=== PATIENT | female | born 1935 | race Caucasian/White ===

== ENCOUNTER → 2019-02-04 09:21 | Outpatient (CLI) | payer MEDICARE, SELFPAY ==
[2018-11-16 10:48] VITALS: BMI 25.6
--- NOTE | 2019-02-04 09:22 | STEWCON_ITS ---
Reason For Study: CAD/ASHD Stress Results Protocol: MODIFIED JOAQUIM Maximum Predicted HR: 139 bpm Target HR: 118 bpm % Maximum Predicted HR: 109 % DurationHeart Rate Stage (mm:ss) (bpm) BP Comment BASELINE 79 158/40DILUTED DEFINITY 3CC USED MODBRUCE- STAGE 1 3:00 130 144/64 MODBRUCE- STAGE2 3:00 144 146/74SLIGHT SOB, NO CP MODBRUCE- STAGE 3 1:00 151 / SOB, ST DEPRESSION RECOVERY 84 140/80DENIES CP, ST DEPRESSION RESOLVED Stress Duration: 7:00 mm:ss Maximum Stress HR: 151 bpm Baseline Echocardiogram Findings The estimated ejection fraction is 65 %. Stress Echo Wall motion Data Resting WM Intermediate WM Stress WM Resting Wall Motion Wall Motion Stress No regional wall motion Mid-Anterior : Mildly abnormalities noted. hypokinetic. Mid-anteroseptal : Mildly hypokinetic. EKG Data The baseline ECG displays normal sinus rhythm. The stress ECG displays diffuse abnormal ST segments. Interpretation Summary The estimated ejection fraction is 65 %. Mid-Anterior : Mildly hypokinetic Mid-anteroseptal : Mildly hypokinetic Abnormal, adequate, modified Joaquim treadmill echocardiogram. Positive for ischemia by EKG and echocardiographic anterior. No anginal symptoms noted. The patient developed [address] segment depression at 5 minutes 50 seconds into exercise. This continued through exercise to a maximum of [address] segment depression. Her ST segment depression normalized by 1 minute 50 seconds into recovery. In addition the patient developed mid anteroseptal hypokinesis consistent with her previous LAD stent at peak exercise. No arrhythmias noted. Appropriate blood pressure response to exercise. Test terminated due to attainment target heart rate and dyspnea. Final LVEF of 65%. The study was technically difficult. Contrast injection was performed. Ordering Physician: Howard Damian Referring Physician: Howard Damian Performed By: Mela Jacobs, ANDRES, RVT
--- NOTE | 2019-02-04 10:55 | RAD_ITS ---
STUDY: X-RAY CHEST REASON FOR EXAM: Female, 83 years old. Abnormal stress test. History of heart stent placement. TECHNIQUE: Frontal and lateral views of the chest. COMPARISON: December 25, 2016 FINDINGS: Stable mild hyperexpansion. Bilateral apical pleural thickening unchanged. Borderline cardiomegaly unchanged. Normal mediastinum and shantell. Normal visualized pulmonary arteries. Aortic tortuosity with calcification unchanged. Stable thoracic spondylosis. Normal visualized ribs, clavicles, and shoulders. There is no demonstrated abnormality of the visualized soft tissue structures of the upper abdomen. RAD/Chest PA and Lateral IMPRESSION: Stable borderline cardiomegaly with hyperexpansion. No acute finding. Electronically Signed: Barry Sena MD at 16:49 EDT , Service support ,
[2019-02-04 12:50] LABS: Hematocrit 37.3 % (37-47); Mean Corp Hgb Conc 34.9 g/dL (32-36); Mean Corpuscular Hgb 34.5 pg (27.0-32.0); Mean Corpuscular Volume 98.9 fL (81-99); Mean Platelet Vol. 10.1 fl (6.2-12.0); Platelet Count 247 K/mm3 (150-450); RBC Distribution Width CV 11.6 % (11.6-14.6); RBC Distribution Width SD 42.2 fl (35.1-43.9); Red Blood Count 3.77 M/mm3 (4.2-5.4); White Blood Count 6.7 K/mm3 (4.4-11.0)
[2019-02-04 13:07] LABS: International Normalized Ratio 1.1; Prothrombin Time (Protime)PT. 13.5 SECONDS (11.7-14.9)
[2019-02-04 13:13] LABS: Anion Gap 7 (5-15); BUN 17 mg/dL (7-18); BUN/Creat Ratio 21.5 RATIO (10-20); Chloride 101 mmol/L (98-107); Creatinine, Serum 0.79 mg/dL (0.55-1.02); EST Glomerular Filtration Rate 74 mL/min (>60); Est Glom Filt Rate - Afr Amer 90 mL/min (>60); Glucose 90 mg/dL (74-106); Potassium 3.6 mmol/L (3.5-5.1); Sodium Level 137 mmol/L (136-145)
== END ==
PROVIDERS: Family Provider Family Medicine; PCP Family Medicine; Referring Provider Internal Medicine Cardiovascular Disease; Visit Provider Internal Medicine Cardiovascular Disease
DX: Z01.818 Encounter for other preprocedural examination (principal); I25.10 Atherosclerotic heart disease of native coronary artery without angina pectoris; R94.39 Abnormal result of other cardiovascular function study
CPT/HCPCS: 36415; 71046; 80048; 85027; 85610; 93017; 93350; Q9957; A4216; C8928

== ENCOUNTER 2019-02-10 06:52 | Day surgery (SDC) | payer MEDICARE, SELFPAY ==
[2018-11-16 10:48] VITALS: BMI 25.6
--- NOTE | 2019-02-09 15:39 | PCM.HP.BLA ---
History and Physical Date of Admission: 02/10/19 HPI HPI History of Present Illness Surgical H&P: No Details: This is an 83-year-old female that presents here today for a heart catheterization. She has a history of coronary artery disease with stenting to her LAD in 2010. She also has a history of hypertension, hyperlipidemia hypertriglyceridemia. Patient was asked to begin a exercise program. Because of this, she underwent a stress echocardiogram to further evaluate coronary artery disease. Her stress echocardiogram on 02/04/2019 was considered to be an abnormal, adequate, modified Joaquim treadmill echocardiogram that was positive for ischemia by EKG and echocardiographic criteria. Because of the abnormal stress test, she will proceed with a heart catheterization to further evaluate. She denies chest, arm, jaw, or neck discomfort. Her exercise tolerance is stable. She denies symptoms of CHF, palpitations, lightheadedness, dizziness, near syncope, or syncopal episodes. She denies edema or claudication issues. She denies orthopnea, PND, fever, chills, blood in urine, blood in stool, myalgia, or unexplainable fatigue. 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 Valuation Required: No Accompanied by: Is patient in pain?: No Allergies erythromycin base Allergy (Verified 11/16/18 10:51) Unknown Medications Aspirin [Adult Low Dose Aspirin EC] 81 mg PO DAILY 12/25/16 [History Confirmed 11/16/18] Atorvastatin Calcium [Lipitor] 80 mg PO QHS 12/25/16 [History Confirmed 11/16/18] Calcium Carbonate/Vitamin D3 [Calcium 600-Vit D3 200 Tablet] 1 ea PO DAILY 12/25/16 [History Confirmed 11/16/18] Folic Acid 0.8 mg PO DAILY@0800 12/25/16 [History Confirmed 11/16/18] Multivitamins,Therapeutic [Multivitamin] 1 tab PO DAILY 12/25/16 [History Confirmed 11/16/18] Nitroglycerin (INPATIENT USE) [Nitrostat] 0.4 mg SUBLINGUAL Q5M PRN 12/25/16 [History Confirmed 11/16/18] hydrochlorothiazide 12.5 mg capsule 12.5 mg PO DAILY #90 cap 10/22/18 [Rx Confirmed 11/16/18] metoprolol tartrate 50 mg tablet 50 mg PO BID #180 tab 10/22/18 [Rx Confirmed 11/16/18] omega-3 fatty acids-fish oil 300 mg-1,000 mg capsule 1 cap PO BID cap 10/22/18 [History Confirmed 11/16/18] ranitidine 150 mg tablet 150 mg PO DAILY PRN 10/22/18 [History Confirmed 11/16/18] losartan 100 mg tablet 100 mg PO DAILY 11/16/18 [History Confirmed 11/16/18] Clopidogrel (Plavix) 75 mg p.o. daily PFSH Medical History Atherosclerosis of [place] coronary artery of [place] heart without angina pectoris (Chronic) Hyperlipemia, mixed (Chronic) Essential (primary) hypertension (Chronic) Anxiety (Chronic) Surgical History History of coronary artery stent placement (Chronic 06/06/11) History of left heart catheterization (Acute 12/26/16) H/O tubal ligation (Chronic) Family History Father CAD (coronary artery disease) Brother Hypertension Mother Hypertension Sister Hypertension Social History Smoking Status: Never smoker alcohol intake: current alcohol intake frequency: holidays/special occasions only substance use type: does not use caffeine: Yes Type: coffee Number of servings: 1 what type of physical activity do you participate in: walking frequency: daily duration: 45-60 minutes/day seatbelt use: always do you feel safe at home: Yes ROS Const Const: Positive for other (Feels well); Negative for fatigue, weakness, body ache, fever(s), headache(s), chills, frequent falls, night sweats, daytime sleepiness, difficulty sleeping, excessive sweating, weight gain, weight loss, increased appetite, poor appetite or anorexia Eyes Eyes: Negative for blind spots, loss of peripheral vision, transient loss of vision, blurry vision, change in vision, double vision, floaters, tunnel vision or other ENT ENT: Negative for headache(s) or balance problems Cardio Chest Pain: No Palpitations: No Edema: None Muscle aches with walking: None Resp Respiratory: Negative for SOB with activity, SOB at rest, SOB orthopnea\SOB lying down, Cough, Coughing up blood/hemoptysis, chest congestion, pain on inspiration, snoring, stridor, wheezing, crackles, paroxysmal nocturnal dyspnea or other GI GI: Negative nausea, vomiting, heartburn, constipation, belching, bloating, cramping, vomiting blood/hematemesis, bright, red blood in stools, black,tarry stools, loose stools, Difficulty Swallowing or other : Negative for hematuria, frequent nighttime urination/ nocturia, erectile dysfunction or abnormal vaginal bleeding Musc Musc: Negative for muscle aches/ myalgia, muscle weakness, joint pain or balance problems Skin Skin: Negative redness, non-healing lesions, rash, unusual bruising, skin ulcer, wounds, jaundice or other Neuro Neuro: Negative for frequent falls, headache(s), weakness, blurry vision or double vision Braulio Hematologic/Lymphatic: Negative for easy bleeding, easy bruising, enlarged lymph nodes or other Endo Endo: Negative for fatigue or excessive sweating Psych Psych: Negative for anxiety, depression, thoughts of harming anyone, thoughts of harming yourself, visual hallucinations, panic attacks or audible hallucinations Allergy Allergy/Immunology: Negative for rash Cardiology Exam Const Appearance: cooperative, healthy appearing and no acute distress Nutritional Appearance: well nourished Orientation: alert, oriented x3 and oriented to person Head Head: normal to inspection, normocephalic and atraumatic Nose: external nose normal Face and Sinus: face symmetric Mouth: oral mucosae normal Eyes General: appearance normal, both eyes and all related structures Eyelids: eyelids normal Conjunctivae: conjunctivae normal Pupils: PERRL and normal by confrontation EOM: EOM intact bilaterally Neck Neck: normal visual inspection and full ROM Carotids: normal carotid upstroke Chest Chest inspection: normal inspection of the chest Auscultation: Bilateral: Clear to Auscultation Cardio Palpation: normal PMI Rate: regular rate Rhythm: regular rhythm Heart sounds: S1 normal and S2 normal GI GI: normal to inspection, no hepatosplenomegaly and bowel sounds present Neuro General: alert, awake, oriented x3, CN's II-XI intact bilaterally and moves all extremities Skin Skin: no rashes or lesions noted Extremities Pulses: Normal: Right Femoral Pulse, Left Femoral Pulse, Right Dorsalis Pedis Pulse, Left Dorsalis Pedis Pulse, Right Posterior Tibial Pulse, Left Posterior Tibial Pulse, Right Radial Pulse, Left Radial Pulse Lower Extremity Edema: None: Bilateral Psych Psychological: normal affect Assessment & Plan 1. Atherosclerosis of [place] coronary artery of [place] heart without angina pectoris I25.10 Plan Her stress echocardiogram on 02/04/2019 was considered to be abnormal. Given her previous history of stenting to her LAD in 2010 she will proceed with heart catheterization for further evaluation. Based on results further recommendation will be made. If she requires a repeat stenting she will continue with Plavix for at least one year. In the interim, she will continue with aspirin, atorvastatin, losartan, and metoprolol. Patient results of her heart catheterization further recommendation be made. 2. Essential hypertension I10 Plan Patient's blood pressure is well-controlled. We will continue to monitor. We will not make any medication regimen changes. 3. Hyperlipemia, mixed E78.2 Plan This is being managed by her primary care physician. She will continue with current high-dose statin medication. Plan Detail Additional Comments Thank you for allowing us to participate in patient's plan of care, if you have any questions please do not hesitate to call. This note was generated using a voice recognition system and there may be incorrect words, spelling or punctuation errors that were not noted when reviewing the office note prior to saving. Supplemental Info Supplemental Information Stress echocardiogram from 02/04/2019: Interpretation Summary The estimated ejection fraction is 65 %. Mid-Anterior : Mildly hypokinetic Mid-anteroseptal : Mildly hypokinetic Abnormal, adequate, modified Joaquim treadmill echocardiogram. Positive for ischemia by EKG and echocardiographic anterior. No anginal symptoms noted. The patient developed [address] segment depression at 5 minutes 50 seconds into exercise. This continued through exercise to a maximum of [address] segment depression. Her ST segment depression normalized by 1 minute 50 seconds into recovery. In addition the patient developed mid anteroseptal hypokinesis consistent with her previous LAD stent at peak exercise. No arrhythmias noted. Appropriate blood pressure response to exercise. Test terminated due to attainment target heart rate and dyspnea. Final LVEF of 65%. The study was technically difficult. Contrast injection was performed. Heart catheterization from 12/26/2016: Dominance: Right dominant Left heart assessment Left ventricular ejection fraction: By LV gram 65% Normal LV wall motion Normal left ventricular systolic function Normal left ventricular end-diastolic pressure Left anterior descending artery: Proximal LAD: In-stent restenosis 0% Circumflex artery: Nonobstructive Right coronary artery: No significant disease noted
[2019-02-10 07:10] VITALS: BMI 25.0
--- NOTE | 2019-02-10 08:25 | CL.D_ITS ---
Patient Name: DELMY CAMACHO Study Date: 02/10/2019 Performing: Howard Damian MD Ht: 61.81 inches 157 cm : 1935 Wt: 137 lbs 62.14 kg Age: 83 Gender: female BSA: 1.62 PROCEDURE(S) PERFORMED [id number]/COR/LV CLINICAL PROFILE AND INDICATIONS Indications: Stable Known CAD Heart Failure: None Stress/Imaging Date: 02/04/2019Stress Echocardiogram: Positive Low Risk Angina Classification Anginal Classification w/in 2 Weeks: No symptoms CAD Presentations: No Sxs, no angina. Comorbidities/Risk Factors: Hypertension Dyslipidemia Prior PCI CONCLUSIONS Normal LV size, wall motion,and systolic function Non obstructive coronary arteries Widely patent LAD stent with no evidence of compromise of ostial LCX. RECOMMENDATIONS Management as per referring [facility] Intern Manual sheath removal. DESCRIPTION OF PROCEDURE The patient arrived to the procedure lab. The risks and benefits of the procedure as well as a full d escription of our services here and current unavailability of surgical backup were fully explained to the patient and/or their significant other prior to the catheterization. The Timeout was completed, verifying the correct patient and procedure. The patient's procedural site was prepped and draped in the usual fashion. Local anesthetic was given subcutaneously to right groin region with Lidocaine 2%. Using a modified Seldinger technique, arterial access was obtained via the right femoral artery, a 4 Fr sheath was inserted Left Coronary Artery selective angiography was performed in multiple views us ing a 4 Fr. JL5 catheter. Right Coronary Artery selective angiography was then performed in multiple views using a 4 Fr. 3DRC catheter. Left Ventriculography was performed in WORKMAN projection using a 4 Fr . Pigtail catheter. LV to AO pullback pressures were then recorded.The arterial sheath was pulled and manual compression applied until hemostasis is achieved. CORONARY ANGIOGRAPHY DOMINANCE: Right Dominant LEFT HEART ASSESSMENT Left Ventricular Ejection Fraction: by LV Gram 65 % Normal LV wall motion Normal Left Ventricular systolic function LVEDP: 15 mmHg LEFT MAIN: Mild luminal irregularities less than 30% LEFT ANTERIOR DESCENDING ARTERY: OSTIAL LAD: Previously placed stent is patent CIRCUMFLEX ARTERY: Non-obstructive RIGHT CORONARY ARTERY: Angiographically normal COMPLICATIONS No Complications PROCEDURE MEDICATIONS Oxygen: 2 L/min via nasal cannula Nitro 300 mcg IC 02/10/2019 08:14:54 SUMMARY OF HEMODYNAMIC DATA Time AIR REST ECG 07:21:45 AO 174/68 (109) SA 08:05:48 LV 174/-20, 15 08:13:44 LV 175/-20, 17 08:13:51 LVp 173/-17, 14 08:13:57 AOp 174/65 (112) 08:14:02 AO 134/44 (78) 08:14:43 Signed By Howard Damian MD On 02/10/2019 08:25:01 Howard Damian MD
--- NOTE | 2019-02-16 08:57 | HP.PCM_ITS ---
Problem List (1) Atherosclerosis of [place] coronary artery of [place] heart without angina pectoris Status: Chronic (2) Essential (primary) hypertension Status: Chronic (3) History of coronary artery stent placement Status: Chronic Comment: IMO-BBP-Zast LAD w/ 3.5 x 20 mm Promus EElement Stent (4) History of left heart catheterization Status: Chronic Comment: 02/10/2019:Normal LV size, wall motion,and systolic function; Non obstructive coronary arteries Widely patent LAD stent with no evidence of compromise of ostial LCX. Per [facility] @ [facility]. 12/26/2016:NormalLV size, wall motion, and sytolic function. Nonobstructive coronary arteries. Widely patent stent in distal LM and proximal LAD. False positive stress test most likely due to HTN BP response to exercise per [facility] @ [facility] (5) Hyperlipemia, mixed Status: Chronic History and Physical Date of Admission: 02/10/19 History and Physical (Generic) Patient Name: DELMY CAMACHO Date of : 1935 Patient Status: Surgical Day Care Attending Provider: Howard Damian Date: 02/09/19 15:39 Initialization Date: 02/09/19 15:39 Addendum entered and electronically signed by Howard Damian MD 02/16/19 08:54: Code Visit Patient seen and examined and agree with above history and physical. No changes from previous evaluation. Patient will proceed with left heart catheterization and possible intervention. Original Note: History and Physical Date of Admission: 02/10/19 HPI HPI History of Present Illness Surgical H&P: No Details: This is an 83-year-old female that presents here today for a heart catheterization. She has a history of coronary artery disease with stenting to her LAD in 2010. She also has a history of hypertension, hyperlipidemia hypertriglyceridemia. Patient was asked to begin a exercise program. Because of this, she underwent a stress echocardiogram to further evaluate coronary artery disease. Her stress echocardiogram on 02/04/2019 was considered to be an abnormal, adequate, modified Joaquim treadmill echocardiogram that was positive for ischemia by EKG and echocardiographic criteria. Because of the abnormal stress test, she will proceed with a heart catheterization to further evaluate. She denies chest, arm, jaw, or neck discomfort. Her exercise tolerance is stable. She denies symptoms of CHF, palpitations, lightheadedness, dizziness, near syncope, or syncopal episodes. She denies edema or claudication issues. She denies orthopnea, PND, fever, chills, blood in urine, blood in stool, myalgia, or unexplainable fatigue. 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 Accompanied by: Is patient in pain?: No Allergies erythromycin base Allergy (Verified 11/16/18 10:51) Unknown Medications Aspirin [Adult Low Dose Aspirin EC] 81 mg PO DAILY 12/25/16 [History Confirmed 11/16/18] Atorvastatin Calcium [Lipitor] 80 mg PO QHS 12/25/16 [History Confirmed 11/16/18] Calcium Carbonate/Vitamin D3 [Calcium 600-Vit D3 200 Tablet] 1 ea PO DAILY 12/25/16 [History Confirmed 11/16/18] Folic Acid 0.8 mg PO DAILY@0800 12/25/16 [History Confirmed 11/16/18] Multivitamins,Therapeutic [Multivitamin] 1 tab PO DAILY 12/25/16 [History Confirmed 11/16/18] Nitroglycerin (INPATIENT USE) [Nitrostat] 0.4 mg SUBLINGUAL Q5M PRN 12/25/16 [History Confirmed 11/16/18] hydrochlorothiazide 12.5 mg capsule 12.5 mg PO DAILY #90 cap 10/22/18 [Rx Confirmed 11/16/18] metoprolol tartrate 50 mg tablet 50 mg PO BID #180 tab 10/22/18 [Rx Confirmed 11/16/18] omega-3 fatty acids-fish oil 300 mg-1,000 mg capsule 1 cap PO BID cap 10/22/18 [History Confirmed 11/16/18] ranitidine 150 mg tablet 150 mg PO DAILY PRN 10/22/18 [History Confirmed 10/29 ] losartan 100 mg tablet 100 mg PO DAILY 11/16/18 [History Confirmed 11/16/18] Clopidogrel (Plavix) 75 mg p.o. daily PFSH Medical History Atherosclerosis of [place] coronary artery of [place] heart without angina pectoris (Chronic) Hyperlipemia, mixed (Chronic) Essential (primary) hypertension (Chronic) Anxiety (Chronic) Surgical History History of coronary artery stent placement (Chronic 06/06/11) History of left heart catheterization (Acute 12/26/16) H/O tubal ligation (Chronic) Family History Father CAD (coronary artery disease) Brother Hypertension Mother Hypertension Sister Hypertension Social History Smoking Status: Never smoker alcohol intake: current alcohol intake frequency: holidays/special occasions only substance use type: does not use caffeine: Yes Type: coffee Number of servings: 1 what type of physical activity do you participate in: walking frequency: daily duration: 45-60 minutes/day seatbelt use: always do you feel safe at home: Yes ROS Const Const: Positive for other (Feels well); Negative for fatigue, weakness, body ache, fever(s), headache(s), chills, frequent falls, night sweats, daytime sleepiness, difficulty sleeping, excessive sweating, weight gain, weight loss, increased appetite, poor appetite or anorexia Eyes Eyes: Negative for blind spots, loss of peripheral vision, transient loss of vision, blurry vision, change in vision, double vision, floaters, tunnel vision or other ENT ENT: Negative for headache(s) or balance problems Cardio Chest Pain: No Palpitations: No Edema: None Muscle aches with walking: None Resp Respiratory: Negative for SOB with activity, SOB at rest, SOB orthopnea\SOB lying down, Cough, Coughing up blood/hemoptysis, chest congestion, pain on inspiration, snoring, stridor, wheezing, crackles, paroxysmal nocturnal dyspnea or other GI GI: Negative nausea, vomiting, heartburn, constipation, belching, bloating, cramping, vomiting blood/hematemesis, bright, red blood in stools, black,tarry stools, loose stools, Difficulty Swallowing or other : Negative for hematuria, frequent nighttime urination/ nocturia, erectile dysfunction or abnormal vaginal bleeding Musc Musc: Negative for muscle aches/ myalgia, muscle weakness, joint pain or balance problems Skin Skin: Negative redness, non-healing lesions, rash, unusual bruising, skin ulcer, wounds, jaundice or other Neuro Neuro: Negative for frequent falls, headache(s), weakness, blurry vision or double vision Braulio Hematologic/Lymphatic: Negative for easy bleeding, easy bruising, enlarged lymph nodes or other Endo Endo: Negative for fatigue or excessive sweating Psych Psych: Negative for anxiety, depression, thoughts of harming anyone, thoughts of harming yourself, visual hallucinations, panic attacks or audible hallucinations Allergy Allergy/Immunology: Negative for rash Cardiology Exam Const Appearance: cooperative, healthy appearing and no acute distress Nutritional Appearance: well nourished Orientation: alert, oriented x3 and oriented to person Head Head: normal to inspection, normocephalic and atraumatic Nose: external nose normal Face and Sinus: face symmetric Mouth: oral mucosae normal Eyes General: appearance normal, both eyes and all related structures Eyelids: eyelids normal Conjunctivae: conjunctivae normal Pupils: PERRL and normal by confrontation EOM: EOM intact bilaterally Neck Neck: normal visual inspection and full ROM Carotids: normal carotid upstroke Chest Chest inspection: normal inspection of the chest Auscultation: Bilateral: Clear to Auscultation Cardio Palpation: normal PMI Rate: regular rate Rhythm: regular rhythm Heart sounds: S1 normal and S2 normal GI GI: normal to inspection, no hepatosplenomegaly and bowel sounds present Neuro General: alert, awake, oriented x3, CN's II-XI intact bilaterally and moves all extremities Skin Skin: no rashes or lesions noted Extremities Pulses: Normal: Right Femoral Pulse, Left Femoral Pulse, Right Dorsalis Pedis Pulse, Left Dorsalis Pedis Pulse, Right Posterior Tibial Pulse, Left Posterior Tibial Pulse, Right Radial Pulse, Left Radial Pulse Lower Extremity Edema: None: Bilateral Psych Psychological: normal affect Assessment & Plan 1. Atherosclerosis of [place] coronary artery of [place] heart without angina pectoris I25.10 Plan Her stress echocardiogram on 02/04/2019 was considered to be abnormal. Given her previous history of stenting to her LAD in 2010 she will proceed with heart catheterization for further evaluation. Based on results further recommendation will be made. If she requires a repeat stenting she will continue with Plavix for at least one year. In the interim, she will continue with aspirin, atorvastatin, losartan, and metoprolol. Patient results of her heart catheterization further recommendation be made. 2. Essential hypertension I10 Plan Patient's blood pressure is well-controlled. We will continue to monitor. We will not make any medication regimen changes. 3. Hyperlipemia, mixed E78.2 Plan This is being managed by her primary care physician. She will continue with current high-dose statin medication. Plan Detail Additional Comments Thank you for allowing us to participate in patient's plan of care, if you have any questions please do not hesitate to call. This note was generated using a voice recognition system and there may be incorrect words, spelling or punctuation errors that were not noted when reviewing the office note prior to saving. Supplemental Info Supplemental Information Stress echocardiogram from 02/04/2019: Interpretation Summary The estimated ejection fraction is 65 %. Mid-Anterior : Mildly hypokinetic Mid-anteroseptal : Mildly hypokinetic Abnormal, adequate, modified Joaquim treadmill echocardiogram. Positive for ischemia by EKG and echocardiographic anterior. No anginal symptoms noted. The patient developed [address] segment depression at 5 minutes 50 seconds into exercise. This continued through exercise to a maximum of [address] segment depression. Her ST segment depression normalized by 1 minute 50 seconds into recovery. In addition the patient developed mid anteroseptal hypokinesis consistent with her previous LAD stent at peak exercise. No arrhythmias noted. Appropriate blood pressure response to exercise. Test terminated due to attainment target heart rate and dyspnea. Final LVEF of 65%. The study was technically difficult. Contrast injection was performed. Heart catheterization from 12/26/2016: Dominance: Right dominant Left heart assessment Left ventricular ejection fraction: By LV gram 65% Normal LV wall motion Normal left ventricular systolic function Normal left ventricular end-diastolic pressure Left anterior descending artery: Proximal LAD: In-stent restenosis 0% Circumflex artery: Nonobstructive Right coronary artery: No significant disease noted History and physical exam reviewed with unroofed, and agree with above. No interim changes noted from previous history and physical. Patient will proceed with left her catheterization and plus/minus intervention if indicated.
== END 2019-02-10 12:50 | disposition home or self-care (01) ==
LOC: CLSP 06:52
PROVIDERS: Family Provider Family Medicine; PCP Family Medicine; Referring Provider Internal Medicine Cardiovascular Disease; Visit Provider Internal Medicine Cardiovascular Disease
DX: I25.10 Atherosclerotic heart disease of native coronary artery without angina pectoris (principal); E78.2 Mixed hyperlipidemia; I10 Essential (primary) hypertension; Z95.5 Presence of coronary angioplasty implant and graft; Z79.82 Long term (current) use of aspirin; Z79.899 Other long term (current) drug therapy; Z79.02 Long term (current) use of antithrombotics/antiplatelets
CPT/HCPCS: 93458; J7040; Q9967; C1769; C1894

== ENCOUNTER → 2019-12-27 08:02 | Outpatient (CLI) | payer MEDICARE, SELFPAY ==
[2019-07-05 10:23] VITALS: BMI 25.6
[2019-12-27 10:17] LABS: AST(SGOT) 23 U/L (15-37); Alanine Aminotransfer ALT/SGPT 28 U/L (13-56); Albumin, Serum 3.6 g/dL (3.2-5.0); Alkaline Phosphatase 87 U/L (45-117); Bilirubin, Direct 0.16 mg/dL (0.00-0.30); Cholesterol 115 mg/dL (200); Globulin 3.7 g/dL (2.2-4.2); High Density Lipoprotein 39 mg/dL; Protein, Total 7.3 g/dL (6.4-8.2); Triglycerides 203 mg/dL; Very Low Density Lipoprotein 41 mg/dL (5-40)
== END ==
PROVIDERS: PCP Family Medicine; Referring Provider Internal Medicine Cardiovascular Disease; Visit Provider Internal Medicine Cardiovascular Disease
DX: E78.2 Mixed hyperlipidemia (principal); I25.10 Atherosclerotic heart disease of native coronary artery without angina pectoris
CPT/HCPCS: 36415; 80061; 80076

== ENCOUNTER 2020-05-26 20:19 | Inpatient (IN) | payer MEDICARE, SELFPAY ==
[2020-01-03 10:57] VITALS: BMI 25.6
[2020-05-26] VITALS (15 sets, daily range): BP systolic 46–192; BP diastolic 34–103; PULSE 55–115; RESP 14–73; TEMP 36.4–36.5; O2SAT 23–100; BMI 27.7
--- NOTE | 2020-05-26 20:19 | RAD_ITS ---
STUDY: X-RAY CHEST REASON FOR EXAM: Female, 84 years old. Chest pain TECHNIQUE: Frontal view of the chest COMPARISON: 02/04/19 FINDINGS: There are mild congestive changes noted. The lungs are otherwise clear. There are no pleural effusions. There is no pneumothorax. The heart is normal in size. The visualized osseous structures are within normal limits. RAD/Chest 1 View (Portable) IMPRESSION: Mild pulmonary vascular congestion. Electronically Signed: Romeo Barclay, at 21:23 EST Tel , Service support ,
--- NOTE | 2020-05-26 20:24 | EKG12_ITS ---
Test Reason : CP Blood Pressure : / mmHG Vent. Rate : 079 BPM Atrial Rate : 079 BPM P-R Int : 224 ms QRS Dur : 088 ms QT Int : 374 ms P-R-T Axes : 072 052 076 degrees QTc Int : 428 ms Sinus rhythm with 1st degree A-V block Septal infarct , age undetermined ST & T wave abnormality, consider anterolateral ischemia Abnormal ECG Confirmed by ARCHIE WADE, CHINYERE ([id number]), society editor MELIA SANTIAGO ([id number]) on 05/30/2020 9:09:58 AM Referred By: Lamonte Valentin Confirmed By:CHINYERE ALMANZA MD
[2020-05-26] MEDS: Aspirin 81 MG TAB.CHEW 324 MG PO (20:32)
[2020-05-26 20:35] LABS: Absolute Neutrophil Count 3.6 X10^3/uL (2.0-7.7); Basophil# 0.07 X10^3/uL; Eosinophil# 0.16 X10^3/uL; Eosinophils% 2.3 % (0-5); Hemoglobin 12.8 g/dL (12.0-15.0); Mean Corp Hgb Conc 32.8 g/dL (32-36); Mean Corpuscular Hgb 33.5 pg (27.0-32.0); Mean Corpuscular Volume 102.1 fL (81-99); Mean Platelet Vol. 9.7 fl (6.2-12.0); Monocyte% 11.6 % (0-10); NRBC Flagged by Analyzer 0 % (0-5); Neutrophil # 3.61 X10^3/uL (2.7-7.7); Neutrophil % 52.7 % (47-70); Platelet Count 280 K/mm3 (150-450); RBC Distribution Width CV 11.7 % (11.6-14.6); RBC Distribution Width SD 43.6 fl (35.1-43.9); Red Blood Count 3.82 M/mm3 (4.2-5.4); White Blood Count 6.9 K/mm3 (4.4-11.0)
--- NOTE | 2020-05-26 20:37 | ED.VISSUMM ---
- ER Visit Summary Date of Service: 05/26/20 Chief Complaint: Chest pain History of Present Illness: The patient is a [address] Brooks and Dr. Jalloh. She reports that she has chest pain that began after lunch today while she was putting up decorations. Is an aching pain is 5-10 in severity and radiates to her left arm. Is worsened by exertion and alleviated by rest. She is short of breath with this. She denies any nausea, vomiting, or diaphoresis. Patient reports that she has had chest pain intermittently for the past month that she thought was GERD. Physical Examination: Vitals: Stable. Afebrile. General: Well-nourished and well-developed. Head: Normocephalic atraumatic. Neck: Supple, no lymphadenopathy. No JVD. Nontender. Cardiovascular: Regular rate and rhythm. No murmurs. Respiratory: No respiratory distress. Clear to auscultation bilaterally. Abdominal: Soft, nontender, nondistended, normal bowel sounds. No guarding, rebound, or peritoneal signs. Back: Nontender. Extremities: Nontender, no edema. Skin: Normal color, no rash. Neurologic: Alert and oriented ?3. Cranial nerves II through XII are intact. Normal strength and sensation. Psych: Normal affect. Test Results: EKG is sinus with a first-degree AV block rate of 79. She has diffuse ST depression in the inferior and precordial leads. She has elevation in aVR. This is a change from 2010. Chest x-ray is rotated with chronic changes. Abnormal Lab Results 05/26/20 05/26/20 20:25 20:25 WBC 6.9 RBC 3.82 L Hgb 12.8 Hct 39.0 MCV 102.1 H MCH 33.5 H MCHC 32.8 RDW Std Deviation 43.6 RDW Coeff of Rochelle 11.7 Plt Count 280 MPV 9.7 Immature Gran % (Auto) 0.400 Neut % (Auto) 52.7 Lymph % (Auto) 32.0 Weber % (Auto) 11.6 H Eos % (Auto) 2.3 Baso % (Auto) 1.0 Absolute Neuts (auto) 3.6 Absolute Lymphs (auto) 2.20 Nucleated RBC % 0 Sodium 137 Potassium 3.5 Chloride 101 Carbon Dioxide 31.0 Anion Gap 5 BUN 20 H Creatinine 0.92 Estim Creat Clear Calc 35.58 Est GFR (MDRD) Af Amer 75 Est GFR (MDRD) Non-Af 62 BUN/Creatinine Ratio 21.6 H Glucose 180 H Calcium 9.6 Troponin I 0.019 Emergency Department Course and Treatment: When the EKG was obtained I am concerned about the elevation in aVR and diffuse ST depression being a STEMI equivalent. She was discussed with Dr. Valentin and the EKGs were faxed to him. Patient was treated with aspirin. Dr. Valentin reviewed the EKGs and does want her treated as a STEMI. However, he does not want heparin or Brilinta. The patient decompensated in the emergency department and her pulse ox dropped into the 70s on a nonrebreather. She was intubated and her pulse ox is now in the high 90s. Prior to the intubation she was given etomidate and subsequent 1 IV. Following this she was given fentanyl, Dilaudid, and vecuronium. Post intubation chest x-ray shows the tube to be in place. Initially it was in the right mainstem and withdrawn 2 cm. It is now above the elham. The x-ray does show pulmonary edema. Patient worsened again while in the emergency department. Her heart rate decreased into the 50s and her systolic blood pressure was in the 60s. However, she still had femoral and carotid pulses with this. I ordered Levophed, but is not immediately available. So the patient had push dose pressors given with half a milligram of epinephrine. Her heart rate is now in the 90s. She was discussed with Dr. Valentin again and will be taken to the [facility] for further evaluation and potential balloon pump. Treatment Plan: Patient be taken to the [facility] for further evaluation and treatment. Disposition: Admitted in serious condition. Impression: 1. Chest pain. 2. Elevation in aVR-STEMI equivalent. 3. Respiratory failure. 4. Intubation by ED physician. 5. Cardiogenic shock. 6. Critical care time 33 minutes. This note was generated with [employer] software. It may contain incorrect words, spelling, and punctuation that were not noted in review of the chart prior to signing ED Disposition - Plan for ED Patient:
--- NOTE | 2020-05-26 20:49 | CM.ED ---
SOCIAL WORK STEMI Alert Responded to STEMI alert. No family present at bedside at this time. This worker spoke with dip brazier, Bella who reports brought patient to ER. This worker and RN attempting to contact . Alphonso Pinedo, CARGO INSPECTOR, TRAVELING STOREKEEPER
[2020-05-26 20:53] LABS: Anion Gap 5 (5-15); BUN 20 mg/dL (7-18); BUN/Creat Ratio 21.6 RATIO (10-20); Calcium,Total 9.6 mg/dL (8.5-10.1); Chloride 101 mmol/L (98-107); Creatinine, Serum 0.92 mg/dL (0.55-1.02); EST Glomerular Filtration Rate 62 mL/min (>60); Est Glom Filt Rate - Afr Amer 75 mL/min (>60); Estimated Creatinine Clearance 35.58 ml/min; Glucose 180 mg/dL (74-106); Potassium 3.5 mmol/L (3.5-5.1); Sodium Level 137 mmol/L (136-145)
--- NOTE | 2020-05-26 20:56 | ED.RN ---
[facility] [phone]
--- NOTE | 2020-05-26 21:10 | CM.ED ---
SOCIAL WORK child psychologist located patient's in ER parking lot. reports has updated daughter, Reva. escorted to patient's room. and patient speaking with Dr. Valentin at this time. Alphonso Pinedo, CARDIOLOGY RN, ENVIRONMENTAL SPECIALIST
--- NOTE | 2020-05-26 21:11 | ED.RN ---
Over head page for labor relations analyst ready. DR. Valentin at pt's bedside, asked us to not leave the ER until he was done assessing.
[2020-05-26] MEDS: LORazepam 2 MG/ML Syringe 0.5 MG IV (21:12)
[2020-05-26] MEDS: Furosemide 40 MG/4 ML Vial IV (21:17)
[2020-05-26] MEDS: Nitroglycerin SL (ED/IMG/CATH) 0.4 MG TABLET SUBLINGUAL (21:20)
[2020-05-26 21:21] LABS: Partial Thromboplast Time 28.9 Seconds (24.1-36.2); Prothrombin Time (Protime)PT. 12.6 SECONDS (11.7-14.9)
--- NOTE | 2020-05-26 21:22 | HP.PCM_ITS ---
Problem List (1) STEMI (ST elevation myocardial infarction) Status: Acute (2) History of left heart catheterization Status: Chronic Comment: 02/10/2019:Normal LV size, wall motion,and systolic function; Non obstructive coronary arteries Widely patent LAD stent with no evidence of compromise of ostial LCX. Per DJN @ [facility]. 12/26/2016:NormalLV size, wall motion, and sytolic function. Nonobstructive coronary arteries. Widely patent stent in distal LM and proximal LAD. False positive stress test most likely due to HTN BP response to exercise per DJN @ [facility] (3) History of coronary artery stent placement Status: Chronic Comment: [id number] LAD w/ 3.5 x 20 mm Promus EElement Stent (4) Atherosclerosis of [place] coronary artery of [place] heart without angina pectoris Status: Chronic (5) Hyperlipemia, mixed Status: Chronic (6) Essential (primary) hypertension Status: Chronic History of Present Illness Date of Admission: 05/26/20 Chief Complaint: chest pain Patient with a history of CAD s/p stent; hypertension and hyperlipidemia who presented to the emergency department with substernal chest pain. She describes her chest pain as aching. Associated her symptoms was shortness of breath and nausea. She denies any diaphoresis. Her chest pain radiated to her left. Her chest pain started few hours before presentation. Although in the past patient has had episodic chest pain. This time around her pain was persistent. Pain worsened with activity and improved with rest. At emergency department EKG showed ST elevation in aVR and diffuse ST depression in other leads. Emergent department doctor discussed the case with a set up mechanic coil winding machines who recommended that patient be taken to the cath suit for PCI. While in the emergency department patient went into extreme respiratory distress and she was immediately intubated. Patient was transferred to the Computer Analyst Supervisor. While at the Computer Analyst Supervisor rapid response was called because patient was hypotensive. Past Medical History Past Medical History (Chronic Problems): Chronic Problems (Last Reviewed 05/26/20 @ 23:[address] Manolo Walden MD) History of left heart catheterization (Chronic 02/10/19) 02/10/2019:Normal LV size, wall motion,and systolic function; Non obstructive coronary arteries Widely patent LAD stent with no evidence of compromise of ostial LCX. Per DJN @ [facility]. 12/26/2016:NormalLV size, wall motion, and sytolic function. Nonobstructive coronary arteries. Widely patent stent in distal LM and proximal LAD. False positive stress test most likely due to HTN BP response to exercise per DJN @ [facility] History of coronary artery stent placement (Chronic 06/06/11) [id number] LAD w/ 3.5 x 20 mm Promus EElement Stent Atherosclerosis of [place] coronary artery of [place] heart without angina pectoris (Chronic) Hyperlipemia, mixed (Chronic) Essential (primary) hypertension (Chronic) Medical History: Medical History (Last Reviewed 05/26/20 @ 23:[address] Manolo Walden MD) Atherosclerosis of [place] coronary artery of [place] heart without angina pectoris (Chronic) I25.10 Hyperlipemia, mixed (Chronic) E78.2 Essential (primary) hypertension (Chronic) I10 Anxiety F41.9 Allergies erythromycin base Allergy (Verified 05/26/20 20:20) sickness feeling Home Medications: Ambulatory Orders Medication Instructions Recorded Aspirin [Adult Low Dose Aspirin EC] 81 mg PO DAILY 12/25/16 Calcium Carbonate/Vitamin D3 1 ea PO DAILY 12/25/16 [Calcium 600-Vit D3 200 Tablet] Folic Acid 0.8 mg PO DAILY@0800 12/25/16 Multivitamins,Therapeutic 1 tab PO DAILY 12/25/16 [Multivitamin] Nitroglycerin (INPATIENT USE) 0.4 mg SUBLINGUAL Q5M PRN 12/25/16 [Nitrostat] omega-3 fatty acids-fish oil 300 1 cap PO BID cap 10/22/18 mg-1,000 mg capsule atorvastatin 80 mg tablet 80 mg PO QHS #90 tab 07/05/19 hydrochlorothiazide 12.5 mg capsule 12.5 mg PO DAILY #90 cap 07/05/19 losartan 100 mg tablet 100 mg PO DAILY #90 tab 01/10/20 metoprolol tartrate 50 mg tablet 50 mg PO BID #180 tab 01/10/20 Surgical History: Surgical History (Last Reviewed 05/26/20 @ 23:[address] Manolo Walden MD) History of left heart catheterization (Chronic) Onset Date: 02/10/19 Z98.890 02/10/2019:Normal LV size, wall motion,and systolic function; Non obstructive coronary arteries Widely patent LAD stent with no evidence of compromise of ostial LCX. Per DJN @ [facility]. 12/26/2016:NormalLV size, wall motion, and sytolic function. Nonobstructive coronary arteries. Widely patent stent in distal LM and proximal LAD. False positive stress test most likely due to HTN BP response to exercise per DJN @ [facility] History of coronary artery stent placement (Chronic) Onset Date: 06/06/11 Z95.5 [id number] LAD w/ 3.5 x 20 mm Promus EElement Stent H/O tubal ligation Z98.51 Smoking Status: Never smoker - *Family History Maternal Family History: Family History (Last Reviewed 05/27/20 @ 02:[address] Manolo Walden MD) Father CAD (coronary artery disease) Brother Hypertension Mother Hypertension Sister Hypertension Review of Systems Constitutional: Denies: Chills, Fever, Weight Change HEENT: Denies: Head Aches, Sinus Congestion, Sinus Drainage Cardiovascular: Reports: Chest Pain. Denies: Palpitations Respiratory: Reports: Shortness of Breath. Denies: Cough, Sputum production Gastrointestinal: Reports: Nausea. Denies: Abdominal Pain, Vomiting Genitourinary: Denies: Dysuria Musculoskeletal: Denies: Joint Pain, Joint Tenderness Skin: Denies: Rash, Wounds Neurological: Denies: Numbness, Tingling, Focal weakness Psychiatric: Denies: Anxiety, Depression, Homicidal Ideations, Suicidal Ideations Hematologic/ Lymphatic: Denies: Easy Bruising, Easy Bleeding VTE Information - Inpt Only VTE Present on Admission: No VTE Mechan Device Prophylaxis: SCD's VTE Pharm Prophylaxis ordered?: No Patient Problems: Active and Suspected Problems (Last Reviewed 05/26/20 @ 23:[address] Manolo Walden MD) STEMI (ST elevation myocardial infarction) (Acute) - Physical Exam Vitals/I&O's: Vital Signs Temp Pulse Resp BP Pulse Ox 97.5 F L 85 23 H 155/103 H 98 05/26/20 20:56 05/26/20 21:07 05/26/20 21:07 05/26/20 21:07 05/26/20 21:07 Oxygen Flow Rate (L/min) 2 Oxygen Delivery Method Nasal Cannula Weight: 66.6 kg Body Mass Index (BMI) 27.7 General: Alert, Oriented x3, Cooperative, - - Initially alert and oriented but later on had to be intubated at the ED. HEENT: Atraumatic, PERRLA, EOMI, Normocephalic Neck: Supple, Trachea Midline Lungs: Clear to auscultation, Normal air movement Cardiovascular: Regular rate, Normal S1, Normal S2, No murmurs Abdomen: Bowel Sounds Present, Soft, Non Tender Extremities: No edema, Capillary Refill Less than 3 Seconds Skin: No rashes, No breakdown Musculoskeletal: No Tenderness to Palpation of Joints or Extremities Neurological: Cranial nerves II-XII grossly intact Psych/Mental Status: Normal Affect, Appropriate Laboratory Results 05/26/20 20:25: WBC 6.9, RBC 3.82 L, Hgb 12.8, Hct 39.0, MCV 102.1 H, MCH 33.5 H , MCHC 32.8, RDW Std Deviation 43.6, RDW Coeff of Rochelle 11.7, Plt Count 280, MPV 9.7, Immature Gran % (Auto) 0.400, Neut % (Auto) 52.7, Lymph % (Auto) 32.0, Bailey % (Auto) 11.6 H, Eos % (Auto) 2.3, Baso % (Auto) 1.0, Absolute Neuts (auto) 3.6, Absolute Lymphs (auto) 2.20, Nucleated RBC % 0 05/26/20 20:25: Sodium 137, Potassium 3.5, Chloride 101, Carbon Dioxide 31.0, Anion Gap 5, BUN 20 H, Creatinine 0.92, Estim Creat Clear Calc 35.58, Est GFR (MDRD) Af Amer 75, Est GFR (MDRD) Non-Af 62, BUN/Creatinine Ratio 21.6 H, G lucose 180 H, Calcium 9.6, Troponin I 0.019 05/26/20 20:25: PT 12.6, INR 1.0, APTT 28.9 Current Medications Furosemide (Furosemide 40 Mg/4 Ml Vial) 40 mg IV DAILY [place] Assessment/Plan All Active Problems (Last Reviewed 05/26/20 @ 23:[address] Manolo Walden MD) STEMI (ST elevation myocardial infarction) (Acute) STEMI equivalent EKG was individually reviewed. Noted ST elevation in aVR and with ST depressions multiple leads. Full dose aspirin was given at emergency department. Troponin was negative; will trend We will follow recommendations after Computer Analyst Supervisor. Continue statin. Placed on vent at the emergency department; continued. Pulmonary consult and cardiology consults. Cardiogenic shock Chest x-ray with hyperinflation and congestion. Chest x-ray was interpreted by radiologist and actual chest x-ray image independently reviewed by me. Lasix by cardiology Started on dopamine and Levophed at emergency department/Computer Analyst Supervisor Trend blood pressures. Will follow further recommendation from cardiology. Hypokalemia Borderline normal. Received lasix Replaced by cardiology orders. Trend BMP DVT prophylaxis SCD for now consider. Chemical thromboprophylaxis if indicated after Computer Analyst Supervisor. Inpatient E&M: [id number] Init Hosp L3
[2020-05-26] MEDS: Morphine 2 MG/ML Syringe IV (21:23)
[2020-05-26] MEDS: Etomidate 20 MG/10 ML Vial IV (21:33)
[2020-05-26] MEDS: Succinylcholine Chloride 200 MG/10 ML Vial 120 MG IV (21:34)
--- NOTE | 2020-05-26 21:43 | RAD_ITS ---
STUDY: X-RAY CHEST REASON FOR EXAM: Female, 84 years old. ETT AND OG PLACEMENT #2. TECHNIQUE: 1 view 9:59 PM COMPARISON: Prior chest radiograph from 05/26/2020 9:52 PM FINDINGS: Endotracheal tube has been withdrawn and now lies above the elham. OG tube extends below the gastroesophageal junction. Distal catheter is not included in the [id number]. Lung [place] continue to be well expanded. There are generalized hazy infiltrates or edema in the perihilar and upper lung zone with increased interstitial lung markings stable from prior exam. Normal size heart. Normal mediastinum and shantell. Normal visualized pulmonary arteries. There is atherosclerotic calcification of the aortic arch with tortuosity. Demineralized osseous structures. Degenerative changes of the thoracic spine. There is no demonstrated abnormality of the visualized soft tissue structures of the upper abdomen. RAD/Chest 1 View IMPRESSION: Endotracheal tube has been withdrawn and now lies above the elham. OG tube extends below the gastroesophageal junction. Lung [place] remain well expanded with hazy infiltrates/edema in the upper lung zones and perihilar regions with prominent interstitial markings. Electronically Signed: Kate Yan MD at 23:01 EST , Service support ,
[2020-05-26] MEDS: Nitroglycerin Infusion 250 ML 3 MG CONT INF (21:47)
[2020-05-26] MEDS: fentaNYL 100 MCG/2 ML Ampul 50 MCG IV (21:49)
[2020-05-26] MEDS: fentaNYL drip 100 ML 5 MCG IV (21:50)
--- NOTE | 2020-05-26 21:53 | CM.ED ---
SOCIAL WORK This worker spoke with patient's daughter, Reva to update on patient's critical condition. Patient is intubated and plan for Lock Up Worker. Call facilitated to Dr. Reyes as daughter has questions. Daughter reports does not live locally and will arrive in about 4.5 hours. Daughter states her brother who lives in [place] is currently under quarantine due to COVID-19. Nursing staff kalin. Alphonso Pinedo, CAP MACHINE OPERATOR, ROOF PROMENADE TILE SETTER
--- NOTE | 2020-05-26 21:55 | RAD_ITS ---
STUDY: X-RAY CHEST REASON FOR EXAM: Female, 84 years old. ETT AND OG PLACEMENT #1. TECHNIQUE: 1 view 9:52 PM COMPARISON: Prior chest radiograph from 05/26/2020 FINDINGS: Endotracheal tube extends into the right mainstem bronchus by 2 cm. Enteric tube is extending well below the gastroesophageal junction. Lung [place] are well-expanded. Hazy upper and perihilar lung zone changes with increasing interstitial lines. There is no demonstrated pleural abnormality. Normal size heart. Normal mediastinum and shantell. Normal visualized pulmonary arteries. There is atherosclerotic calcification of the aortic arch with tortuosity. Demineralized osseous structures. Degenerative changes of the thoracic spine. There is no demonstrated abnormality of the visualized soft tissue structures of the upper abdomen. RAD/Chest 1 View (Portable) IMPRESSION: Endotracheal tube extends into the right mainstem bronchus by 2 cm. Enteric tube extends below the gastroesophageal junction. Lung [place] are generally well expanded with hazy edematous changes of the upper lung zones and central lung zones with a diffuse increase in interstitial edema. Normal cardiac size. Atherosclerotic changes of the thoracic aorta. Electronically Signed: Kate Yan MD at 22:59 EST , Service support ,
[2020-05-26] MEDS: HYDROmorphone 1 MG/ML Syringe IV (22:01)
[2020-05-26] MEDS: Vecuronium Bromide 10 MG/10 ML Vial IV (22:02)
--- NOTE | 2020-05-26 22:10 | PCM.CONS.C ---
Reason for Consult Date of Consultation: 05/26/20 Reason for Consultation: Cardiogenic shock and non-STEMI History of Present Illness: The patient is a 84 year old F has been having shortness of breath or chest pain with exertion for last 30 days. Today at 2 PM patient started having problem with substernal chest pressure and very short of breath as well as restless. In the emergency room patient had widespread ST depression in the anterior leads, lateral leads and inferior leads. In the meantime patient went downhill fast respiratory distress. She was intubated. Blood pressure at the beginning was high now down to systolic of 60. Patient had stenting of the left main into the left anterior descending 2010. 2018 the last cardiac catheterization showed patent stent of the left main and left anterior descending with no IVUS done. Patient is known to have hypertension and hyperlipidemia. She is a non-smoker and nondrinker. Before 1 month ago patient was able to walk 2 miles a day. [] Past Medical History Allergies/Adverse Reactions: Allergies erythromycin base Allergy (Verified 05/26/20 20:20) sickness feeling Home Medications: Ambulatory Orders Medication Instructions Recorded Aspirin [Adult Low Dose Aspirin EC] 81 mg PO DAILY 12/25/16 Calcium Carbonate/Vitamin D3 1 ea PO DAILY 12/25/16 [Calcium 600-Vit D3 200 Tablet] Nitroglycerin (INPATIENT USE) 0.4 mg SUBLINGUAL Q5M PRN 12/25/16 [Nitrostat] RX: Folic Acid 0.8 mg PO DAILY@0800 12/25/16 RX: Multivitamins,Therapeutic 1 tab PO DAILY 12/25/16 [Multivitamin] omega-3 fatty acids-fish oil 300 1 cap PO BID cap 10/22/18 mg-1,000 mg capsule atorvastatin 80 mg tablet 80 mg PO QHS #90 tab 07/05/19 hydrochlorothiazide 12.5 mg capsule 12.5 mg PO DAILY #90 cap 07/05/19 losartan 100 mg tablet 100 mg PO DAILY #90 tab 01/10/20 metoprolol tartrate 50 mg tablet 50 mg PO BID #180 tab 01/10/20 Past Medical History (Chronic Problems): Chronic Problems (Last Reviewed 06/28/19 @ 17:32 by Jackelyn Mane) History of left heart catheterization (Chronic 02/10/19) 02/10/2019:Normal LV size, wall motion,and systolic function; Non obstructive coronary arteries Widely patent LAD stent with no evidence of compromise of ostial LCX. Per DJN @ [facility]. 12/26/2016:NormalLV size, wall motion, and sytolic function. Nonobstructive coronary arteries. Widely patent stent in distal LM and proximal LAD. False positive stress test most likely due to HTN BP response to exercise per DJN @ [facility] History of coronary artery stent placement (Chronic 06/06/11) [id number] LAD w/ 3.5 x 20 mm Promus EElement Stent Atherosclerosis of [place] coronary artery of [place] heart without angina pectoris (Chronic) Hyperlipemia, mixed (Chronic) Essential (primary) hypertension (Chronic) Smoking Status: Never smoker Review of Systems - Review of Systems General: Reports: Fatigue, Weakness Cardiovascular: Reports: Chest Discomfort, Shortness of Breath Respiratory: Reports: Shortness of Breath Gastrointestinal: Denies: Hematemesis, Hematochezia, Melena Genitourinary: Denies: Dysuria, Hematuria Neurological: Denies: Dizziness, History of TIA, History of CVA Objective: Vital Signs Temp Pulse Resp BP Pulse Ox 97.7 F L 55 L 17 59/41 L 100 05/26/20 21:42 05/26/20 22:09 05/26/20 22:09 05/26/20 22:09 05/26/20 22:09 Oxygen Flow Rate (L/min) 2 Oxygen Delivery Method Mechanical Ventilator Weight: 146 lb 13.246 oz Body Mass Index (BMI) 27.7 Intake and Output for Last 24 Hours 05/24/20 05/25/20 05/26/20 23:59 23:59 23:59 Intake Total Balance General: In Acute Distress Neck: Supple, - - Elevated neck veins Lungs: Rales - Jhonatan Bases Cardiovascular: Regular Rhythm, No Murmurs, Positive S3 Vascular: No Carotid Bruits, Normal Femoral Pulses Abdomen: Bowel Sounds Present, Soft, Non Tender, No HSM, No Organomegaly Extremities: Bilateral Edema +1 Neurological: No Focal Motor or Sensory Deficit, - - Semiconscious 05/26/20 20:25: WBC 6.9, RBC 3.82 L, Hgb 12.8, Hct 39.0, MCV 102.1 H, MCH 33.5 H, MCHC 32.8, Plt Count 280, MPV 9.7, Immature Gran % (Auto) 0.400, Neut % (Auto) 52.7, Lymph % (Auto) 32.0, Shackelford % (Auto) 11.6 H, Eos % (Auto) 2.3, Baso % (Auto) 1.0, Absolute Neuts (auto) 3.6, Nucleated RBC % 0 05/26/20 20:25: Sodium 137, Potassium 3.5, Chloride 101, Carbon Dioxide 31.0, Anion Gap 5, BUN 20 H, Creatinine 0.92, Est GFR (MDRD) Af Amer 75, Est GFR (MDRD) Non-Af 62, BUN/Creatinine Ratio 21.6 H, Glucose 180 H, Calcium 9.6, Troponin I 0.019 05/26/20 20:25: PT 12.6, INR 1.0, APTT 28.9 Rhythm: EKG: ECHO: Stress Test: Cardiac Cath: PCI: CT Surgery: Holter monitor: EPS: PPM: CXR: Chest CT Scan: Assessment/Plan #1 severe ischemia on EKG most likely non-STEMI with possibility of stenoses of the left main stent. This is complicated by respiratory difficulty required intubation. Blood pressure is on the low side of normal compatible with cardiogenic shock. Patient will proceed with emergency cardiac catheterization and perhaps balloon pump. The grave situation has been explained to the . He has given a consent to proceed
[2020-05-26] MEDS: Epinephrine IV 1 mg/10 ml syringe 0.5 MG IV (22:11)
--- NOTE | 2020-05-26 22:18 | CM.ED ---
SOCIAL WORK Patient's escorted to supervisor labor gang waiting area. Emotional support provided. Alphnoso Pinedo, COUNSELING CENTER DIRECTOR, TELEVISION MECHANIC
--- NOTE | 2020-05-26 22:20 | ED.RN ---
Addendum entered by Jessi Neville 05/26/20 23:39: 2213 Pt transported to flue dust laborer, Levophed was not in ER due to it had not come from pharmacy. Original Note: 2110 Dr Valentin at bedside assessing pt. Pt states she is very anxious and sob. Dr. Valentin lays pt in semi liu position and becomes even more sob. 2114 Dr. Valentin gave verbal orders for lasix, potassium, nitro and morphine. 2119 Pt in respiratory distress, pulse ox in the 70% pt switched to NRB, no improvement for pulse ox. [address] Reyes to come to pt's room. Decision was made for intubation so that pt could be taken to flue dust laborer.
[2020-05-27] VITALS (58 sets, daily range): BP systolic 54–166; BP diastolic 25–87; PULSE 57–105; RESP 12–18; TEMP 36.8–39.2; O2SAT 96–100; BMI 28.3
--- NOTE | 2020-05-27 00:11 | CL.PCI_ITS ---
PCI Cardiac Cath Report PCI Report: Procedure: #1 left and right heart cardiac catheterization, left ventriculogram and coronary arteriography #2 stenting of the mid left circumflex #3 PCI of the left main stenoses using kissing balloon angioplasty of the in-stent restenosis of the proximal left main into the pr oximal left anterior descending as well as the ostial left circumflex #4 IVUS of the left main and proximal left anterior descending after the intervention #5 insertions of intra-aortic balloon pump before PCI because of the cardiogenic shock Clinical history: This is an 84-year-old white female with cardiogenic shock from non-STEMI. She was intubated in the emergency room because of respiratory failure due to pulmonary edema. Patient had history of stenting of the left main into the proximal left anterior descending 2010 Indication: Cardiogenic shock with functional class IV angina and non-STEMI Heart failure: Acute systolic dysfunction of the left ventricle Stress/imaging: None CAD presentation: As stated above Summary: #1 successful stenting of the mid left circumflex, pre-PCI stenosis was 85%, post PCI stenosis was 0%. JENNIFER-3 flow was maintained. Type A lesion #2 haziness of the distal left main suggestive of significant at least 60% steno sis treated with kissing balloon angioplasty of the proximal left circumflex and proximal left anterior descending as well as proximal optimization technique of the mid and distal left main stent using angioplasty. Residual stenoses of the left main was 0%. JENNIFER-3 flow was maintained. Type C lesion. Post PCI, IVUS of the left main showed minimal luminal area of 13.3 mm?. #3 post PCI, left ventriculogram showed minimally impaired left ventricular systolic wall motion #4 post PCI showed normal right heart hemodynamic with left ventricular end- diastolic pressure of 8 and pulmonary wedge pressure of 8 #5 intra-aortic balloon pump will be left in place for further hemodynamic stabilization Procedure Details The risks, benefits, complications, treatment options, and expected outcomes wer e discussed with the patient. The patient and/or family concurred with the proposed plan, giving informed consent. Patient was brought to the cardiac cath lab manager intubated. Subject was prepped and draped in the usual manner. Using the modified Seldinger access technique, 8 Egyptian intra-aortic balloon pump was inserted through the right groin. 7 Egyptian sheath was inserted into the left femoral artery for PCI. 7 Egyptian right femoral venous sheath was used for Alva- Sujata catheter which was removed at the conclusion of the procedure. Standard diagnostic catheters were used. Exchanges were performed over J-wire. At the end of the procedures, the intra aortic balloon pump, arterial sheath and venous sheaths were left in place for subsequent hemodynamic monitoring Findings: Moderate Sedation: Patient was intubated and sedated before PCI was started Left ventriculogram: Left ventricle was normal in size. There was mild degree of generalized hypokinesis. Ejection fraction was between 45% to 50% Hemodynamics: BP 50 mm systolic before the balloon pump, after insertion of the balloon pump and IV inopressor, systolic blood pressure went to 150/70 with good augmentation by the balloon pump. After PCI, LVEDP 8-12 HR 110/min with IV inopressors EF 45 to 50%. Pulmonary artery pressure was 30/10, pulmonary wedge pressure has a mean of 8 Comment: After the PCI, right heart hemodynamics were normal. Left ventricular end-diastolic pressure was normal. Ejection fraction was only mildly decreased. Blood pressure improved significantly from 50 mm systolic to 150 mm systolic after intra-aortic balloon pump and inopressors Coronary Anatomy: Left dominance Left Main : A stent was seen starting from the mid shaft extending into the proximal left anterior descending. There was some haziness for the bifurcation compromising the lumen at least 60% LAD: Left anterior descending was normal to small in caliber tortuous and free of significant disease Diagonals : Diagonal branches were small and tortuous. They were free of significant disease Circumflex : Left circumflex was a large 2 normal sized vessel. At the mid left circumflex before giving of the obtuse marginal branch, there was an 85% short segment stenoses Major Obtuse Marginals : Obtuse marginal branch and left posterior descending were normal in caliber and free of significant disease Right Coronary Artery: Right coronary artery was a normal to small sized vessel and free of significant disease Intra-aortic balloon pump insertion: Intra-aortic balloon pump was inserted before PCI through the right femoral artery Intervention Lesion: Stenting of the mid left circumflex, angioplasty of the left main stenoses Guiding Catheter used 7 Egyptian left XB 3.5 Guide Wire used: Run-through wire, balloon used: Emerge: NC 3.0x12, NC 4.0x8, stents Used: Synergy: 3.0x16 Procedure in detail: 1 wire was down the left circumflex and the other wire within the left anterior descending. 2 NC 3.0 balloon were used for kissing balloon angioplasty at the ostia at 14 alfredo. The 3.0 stent was then deployed at the mid left circumflex at 12 alfredo. Residual stenoses was reduced from 85% to 0%. JENNIFER-3 flow was maintained. The NC 4.0 balloon was used for angioplasty of the mid to proximal left anterior descending stent. This was inflated to 16 alfredo. The 50% haziness was abolished with the high-pressure NC balloon angioplasty. Post angioplasty IVUS was performed using Wakefield catheter. The minimal luminal area of the mid and distal left main stent was 13.3 mm?. The minimal luminal area of the proximal left anterior descending stent was 13mm?. After the stent the proximal left anterior descending was diffusely diseased and calcified Estimated Blood Loss: Minimal} Complications: None Disposition condition: Stable
[2020-05-27 01:00] LABS: ACT Activated Clotting Time 296 sec (74-137)
[2020-05-27 01:00] LABS: ACT Activated Clotting Time 268 sec (74-137)
[2020-05-27 01:15] LABS: Base Excess -3 mmol/L (-2 to +2); Bicarbonate 24.3 mmol/L (22-26); Blood Gas Specimen Type ART; FI02 100; Mode AC; O2 Delivery Device Adult Vent; PEEP 5; PO2 124 mmHG (75-100); RR 12; SITE Art Line; SO2 98 % (95-99); Total Carbon Dioxide 26 mmol/L; Vt 400; pCO2 52.4 mmHg (35-45); pH 7.27 (7.35-7.45)
[2020-05-27] MEDS: Propofol 10MG/Ml 1,000 MG/100 ML Bottle 4 MG CONT INF ×2 (01:15→17:15)
[2020-05-27 02:02] LABS: Lactic Acid 2.2 mmol/L (0.4-1.9)
[2020-05-27] MEDS: 0.9% Normal Saline 1,000 ML 75 ML IV (02:03)
--- NOTE | 2020-05-27 02:05 | ECHOD_ITS ---
Reason For Study: CAD/ASHD Procedure This was a limited 2D transthoracic echocardiogram. The study was technically limited. Due to removal of aortic balloon pump. Imaging before & after removal of balloon pump. Exam performed portable in ICU/CCU. Left Ventricle Normal LV size. Left ventricular systolic function is normal. The estimated ejection fraction is 55 %. No regional wall motion abnormalities noted. Right Ventricle Normal RV size. Normal systolic function. Atria Normal left atrium. Normal right atrium. Mitral Valve Normal mitral valve. Tricuspid Valve Normal tricuspid valve. Aortic Valve Normal aortic valve. Pulmonic Valve Normal pulmonic valve. Great Vessels Normal aortic root. The pulmonary artery is normal size. Normal inferior vena cava. Pericardium/Pleural No pericardial effusion. MMode/2D Measurements & Calculations LVIDd: 4.2 cm FS: 36.1 % Ao root diam: 2.9 cm LVIDs: 2.7 cm LAV(MOD-sp4): 36.1 ml LA A4 area: 14.4 cm2 RA A4 area: 10.1 cm2 Doppler Measurements & Calculations PA V2 max: 103.8 cm/sec Interpretation Summary Normal LV size. Left ventricular systolic function is normal. The estimated ejection fraction is 55 %. The study was technically limited. Ordering Physician: Lamonte Valentin Referring Physician: Ora Martinez Performed By: Robyn Palomo, ANDRES, RVT
--- NOTE | 2020-05-27 02:05 | EKG12_ITS ---
Test Reason : STEMI Blood Pressure : / mmHG Vent. Rate : 068 BPM Atrial Rate : 068 BPM P-R Int : 218 ms QRS Dur : 090 ms QT Int : 432 ms P-R-T Axes : 077 069 009 degrees QTc Int : 459 ms Baseline Artifact Probable Sinus rhythm with 1st degree A-V block Nonspecific ST and T wave abnormality Abnormal ECG When compared with ECG of 05-JUN-2011 15:28, [place] interval has increased Nonspecific T wave abnormality now evident in Inferior leads T wave amplitude has increased in Anterior leads Nonspecific T wave abnormality now evident in Lateral leads Confirmed by CELY WADE, ALLEN ([id number]), production editor YASMIN CONN ([id number]) on 06/02/2020 2:12:34 PM Referred By: Lamonte Valentin Confirmed By:ALLY TA MD
[2020-05-27] MEDS: Potassium Chloride 10mEq/100mL 10 MEQ/100 ML IV.SOLN. 100 MEQ IV BOLUS ×2 (03:00→03:01)
[2020-05-27 03:43] LABS: CPK Total, Creatine Kinase 94 U/L (26-192); Triglycerides 297 mg/dL
[2020-05-27] MEDS: Clopidogrel Bisulfate 75 MG Tablet PO (03:50)
[2020-05-27 05:08] LABS: Absolute Lymphocyte Count 1.62 X10^3/uL (0.83-4.51); Absolute Neutrophil Count 13.4 X10^3/uL (2.0-7.7); Basophil# 0.05 X10^3/uL; Basophil% 0.3 % (0-1); Eosinophil# 0.02 X10^3/uL; Eosinophils% 0.1 % (0-5); Hematocrit 32.5 % (37-47); Hemoglobin 11.4 g/dL (12.0-15.0); Lymphocyte # 1.62 X10^3/ul (4.0); Lymphocyte % 9.6 % (19-41); Mean Corp Hgb Conc 35.1 g/dL (32-36); Mean Corpuscular Hgb 34.9 pg (27.0-32.0); Mean Corpuscular Volume 99.4 fL (81-99); Mean Platelet Vol. 9.5 fl (6.2-12.0); Monocyte# 1.78 X10^3/uL; Monocyte% 10.5 % (0-10); NRBC Flagged by Analyzer 0 % (0-5); Neutrophil # 13.37 X10^3/uL (2.7-7.7); POSITIVE DIFFERENTIAL YES; Platelet Count 250 K/mm3 (150-450); RBC Distribution Width CV 11.7 % (11.6-14.6); RBC Distribution Width SD 42.7 fl (35.1-43.9); Red Blood Count 3.27 M/mm3 (4.2-5.4); White Blood Count 16.9 K/mm3 (4.4-11.0)
[2020-05-27 05:33] LABS: Differential Indicated SCAN CRITERIA MET
[2020-05-27 05:42] LABS: Differential Comment SCANNED
[2020-05-27 05:44] LABS: Reflex Lactate? Y
[2020-05-27 05:44] LABS: Anion Gap 7 (5-15); BUN 21 mg/dL (7-18); BUN/Creat Ratio 23.3 RATIO (10-20); Chloride 108 mmol/L (98-107); EST Glomerular Filtration Rate 63 mL/min (>60); Est Glom Filt Rate - Afr Amer 77 mL/min (>60); Estimated Creatinine Clearance 36.37 ml/min; Glucose 130 mg/dL (74-106); Potassium 4.1 mmol/L (3.5-5.1); Sodium Level 139 mmol/L (136-145)
[2020-05-27 07:14] LABS: Lactic Acid 2.4 mmol/L (0.4-1.9)
--- NOTE | 2020-05-27 07:47 | CON.PCM_ITS ---
Reason for Consult Date of Consultation: 05/27/20 History of Present Illness: The patient is a 84 year old F admitted after cardiac cath and cardiac stent and intra-aortic balloon pump placement yesterday. Patient was noted to have bright red blood per her NG patient was started on a Protonix drip. Patient does need to be on aspirin and Plavix due to her new cardiac stent. Currently patient is still intubated and sedated as she was intubated initially in the ER prior to heart cath. Past Medical History Past Medical History (Chronic Problems): Chronic Problems (Last Updated 05/27/20 @ 16:36 by Anne Enrique) History of coronary artery stent placement (Chronic 05/26/20) [id number] LAD w/ 3.5 x 20 mm Promus Element Stent 06/06/2011; PCI-SHANE-Mid LCx w/ 3.0 x 16 mm [place] [employer] stent and POBA-kissing balloon angioplasty of the proximal left circumflex and proximal left anterior descending as well as proximal optimization technique of the mid and distal left main stent using angioplasty 05/26/2020 Atherosclerosis of [place] coronary artery of [place] heart without angina pectoris (Chronic) Hyperlipemia, mixed (Chronic) Essential (primary) hypertension (Chronic) Medical History: Medical History (Last Updated 05/27/20 @ 16:36 by Anne Enrique) STEMI (ST elevation myocardial infarction) (Acute) Onset Date: 05/26/20 I21.3 Acute respiratory failure with hypoxia (Acute) Onset Date: 05/26/20 J96.01 Atherosclerosis of [place] coronary artery of [place] heart without angina pectoris (Chronic) I25.10 Hyperlipemia, mixed (Chronic) E78.2 Essential (primary) hypertension (Chronic) I10 Anxiety F41.9 Allergies erythromycin base Allergy (Verified 05/26/20 20:20) sickness feeling Home Medications: Ambulatory Orders Medication Instructions Recorded Aspirin [Adult Low Dose Aspirin EC] 81 mg PO DAILY 12/25/16 Calcium Carbonate/Vitamin D3 1 ea PO DAILY 12/25/16 [Calcium 600-Vit D3 200 Tablet] Folic Acid 0.8 mg PO DAILY@0800 12/25/16 Multivitamins,Therapeutic 1 tab PO DAILY 12/25/16 [Multivitamin] Nitroglycerin (INPATIENT USE) 0.4 mg SUBLINGUAL Q5M PRN 12/25/16 [Nitrostat] omega-3 fatty acids-fish oil 300 1 cap PO BID cap 10/22/18 mg-1,000 mg capsule atorvastatin 80 mg tablet 80 mg PO QHS #90 tab 07/05/19 hydrochlorothiazide 12.5 mg capsule 12.5 mg PO DAILY #90 cap 07/05/19 losartan 100 mg tablet 100 mg PO DAILY #90 tab 01/10/20 metoprolol tartrate 50 mg tablet 50 mg PO BID #180 tab 01/10/20 Surgical History: Surgical History (Last Updated 05/27/20 @ 16:40 by Anne Enrique) History of coronary artery stent placement (Chronic) Onset Date: 05/26/20 Z95.5 [id number]-Hejc LAD w/ 3.5 x 20 mm Promus Element Stent 06/06/2011; PCI-SHANE-Mid LCx w/ 3.0 x 16 mm Synergey stent and POBA-kissing balloon angioplasty of the proximal left circumflex and proximal left anterior descending as well as proximal optimization technique of the mid and distal left main stent using angioplasty 05/26/2020 H/O tubal ligation Z98.51 History of left heart catheterization Onset Date: 02/10/19 Z98.890 02/10/2019:Normal LV size, wall motion,and systolic function; Non obstructive coronary arteries Widely patent LAD stent with no evidence of compromise of ostial LCX. Per [facility] @ [facility]. 12/26/2016:NormalLV size, wall motion, and sytolic function. Nonobstructive coronary arteries. Widely patent stent in distal LM and proximal LAD. False positive stress test most likely due to HTN BP response to exercise per [facility] @ [facility] Smoking Status: Never smoker - *Family History Maternal Family History: Family History (Last Reviewed 05/27/20 @ 02:[address] Manolo Walden MD) Father CAD (coronary artery disease) Brother Hypertension Mother Hypertension Sister Hypertension Review of Systems Unable to obtain accurate/complete ROS d/t: Unable to obtain as patient is intubated and sedated Patient Problems: Active and Suspected Problems (Last Updated 05/27/20 @ 16:36 by Anne Enrique) STEMI (ST elevation myocardial infarction) (Acute 05/26/20) Acute respiratory failure with hypoxia (Acute 05/26/20) - Physical Exam Vitals/I&O's: Vital Signs Temp Pulse Resp BP Pulse Ox 101.1 F H 67 16 123/62 H 100 05/27/20 07:00 05/27/20 07:00 05/27/20 07:00 05/27/20 07:00 05/27/20 07:00 Oxygen Flow Rate (L/min) 2 Oxygen Delivery Method Mechanical Ventilator Weight: 149 lb 11.102 oz Body Mass Index (BMI) 28.3 Intake and Output for Last 24 Hours 05/25/20 05/26/20 05/27/20 23:59 23:59 23:59 Intake Total 620.98 / 620.98 Output Total 450 / 450 Balance 170.98 / 170.98 General: - - intubated and sedated HEENT: - - ETT & OG in place Lungs: Normal air movement Cardiovascular: Regular rate Abdomen: Soft, Non-Distended Extremities: No clubbing, No cyanosis Psych/Mental Status: - - sedated Microbiology Past 72 Hours 05/27/20 02:00 Gastric Fluid/Contents Gastric Occult Blood - Final Occult Blood Positive Laboratory Results 05/26/20 20:25: WBC 6.9, RBC 3.82 L, Hgb 12.8, Hct 39.0, MCV 102.1 H, MCH 33.5 H , MCHC 32.8, RDW Std Deviation 43.6, RDW Coeff of Rochelle 11.7, Plt Count 280, MPV 9.7, Immature Gran % (Auto) 0.400, Neut % (Auto) 52.7, Lymph % (Auto) 32.0, Jack % (Auto) 11.6 H, Eos % (Auto) 2.3, Baso % (Auto) 1.0, Absolute Neuts (auto) 3.6, Absolute Lymphs (auto) 2.20, Nucleated RBC % 0 05/26/20 20:25: Sodium 137, Potassium 3.5, Chloride 101, Carbon Dioxide 31.0, Anion Gap 5, BUN 20 H, Creatinine 0.92, Estim Creat Clear Calc 35.58, Est GFR (MDRD) Af Amer 75, Est GFR (MDRD) Non-Af 62, BUN/Creatinine Ratio 21.6 H, Glucose 180 H, Calcium 9.6, Troponin I 0.019 05/26/20 20:25: PT 12.6, INR 1.0, APTT 28.9 05/26/20 20:25: Total Creatine Kinase 94, Triglycerides 297 H 05/26/20 22:55: Activated Clotting Time 268 H 05/26/20 23:18: Activated Clotting Time 296 H 05/27/20 01:05: Specimen Type ART, Sample Site Art Line, pH 7.27 L, Bicarbonate Actual 24.3, Total CO2 26, Base Excess -3 L, O2 Saturation 98, O2 % 100, ABG pCO2 52.4 H, ABG pO2 124 H, Respiration Rate 12, O2 Delivery Device Adult Vent, Vent Mode AC, Tidal Volume 400, POC PEEP 5 05/27/20 01:15: Lactic Acid 2.2 H* 05/27/20 04:05: Troponin I Cancelled 05/27/20 04:05: Sodium Cancelled, Potassium Cancelled, Chloride Cancelled, Carbon Dioxide Cancelled, Anion Gap Cancelled, BUN Cancelled, Creatinine Cancelled, Estim Creat Clear Calc Cancelled, Est GFR (MDRD) Af Amer Cancelled, Est GFR (MDRD) Non-Af Cancelled, BUN/Creatinine Ratio Cancelled, Glucose Cancelled, Calcium Cancelled 05/27/20 04:05: WBC Cancelled, Corrected WBC Cancelled, RBC Cancelled, Hgb Cancelled, Hct Cancelled, MCV Cancelled, MCH Cancelled, MCHC Cancelled, RDW Std Deviation Cancelled, RDW Coeff of [place] Cancelled, Plt Count Cancelled, MPV Cancelled, Immature Gran % (Auto) Cancelled, Neut % (Auto) Cancelled, Lymph % (Auto) Cancelled, Jack % (Auto) Cancelled, Eos % (Auto) Cancelled, Baso % (Auto) Cancelled, Absolute Neuts (auto) Cancelled, Absolute Lymphs (auto) Cancelled, Total Counted Cancelled, Neutrophils % (Manual) Cancelled, Band Neutrophils % Cancelled, Lymphocytes % (Manual) Cancelled, Monocytes % (Manual) Cancelled, Eosinophils % (Manual) Cancelled, Basophils % (Manual) Cancelled, Metamyelocytes % Cancelled, Myelocytes % Cancelled, Promyelocytes % Cancelled, Blast Cells % Cancelled, Plasma Cell % (Manual) Cancelled, Other Cells % Cancelled, Nucleated RBC % Cancelled, Nucleated RBCs/100 WBC Cancelled, Differential Comment Cancelled, Diff Path Review Cancelled, Hypersegmented Neuts Cancelled, Atypical Lymphocytes Cancelled, Reactive Lymphocytes Cancelled, Smudge Cells Cancelled, Toxic Granulation Cancelled, Toxic Vacuolation Cancelled, Dohle Bodies Cancelled, José Manuel Rods Cancelled, Platelet Estimate Cancelled, Plt Morphology Comment Cancelled, RBC Morphology Cancelled, Polychromasia Cancelled, Hypochromasia Cancelled, Poikilocytosis Cancelled, Basophilic Stippling Cancelled, Anisocytosis Cancelled, Microcytosis Cancelled, Macrocytosis Cancelled, Spherocytes Cancelled, Sickle Cells Cancelled, Target Cells Cancelled, Tear Drop Cells Cancelled, Ovalocytes Cancelled, Stomatocytes Cancelled, [place] Bodies Cancelled, Ragley Cells Cancelled, Bite Cells Cancelled, Crenated Cell Cancelled, Acanthocytes (Spur) Cancelled, Rouleaux Cancelled, Schistocytes Cancelled 05/27/20 05:00: WBC 16.9 H, RBC 3.27 L, Hgb 11.4 L, Hct 32.5 L, MCV 99.4 H, MCH 34.9 H, MCHC 35.1 D, RDW Std Deviation 42.7, RDW Coeff of Rohc[place] 11.7, Plt Count 250, MPV 9.5, Immature Gran % (Auto) 0.500, Neut % (Auto) 79.0 H, Lymph % (Auto) 9.6 L, Jack % (Auto) 10.5 H, Eos % (Auto) 0.1, Baso % (Auto) 0.3, Absolute Neuts (auto) 13.4 H, Absolute Lymphs (auto) 1.62, Nucleated RBC % 0, Differential Comment SCANNED, Diff Path Review May foll 05/27/20 05:00: Sodium 139, Potassium 4.1, Chloride 108 H, Carbon Dioxide 24.0, Anion Gap 7, BUN 21 H, Creatinine 0.90, Estim Creat Clear Calc 36.37, Est GFR (MDRD) Af Amer 77, Est GFR (MDRD) Non-Af 63, BUN/Creatinine Ratio 23.3 H, Glucose 130 H, Calcium 8.0 L, Troponin I 12.800 H* 05/27/20 06:15: Troponin I 11.100 H* 05/27/20 06:15: Lactic Acid 2.4 H* Current Medications Aspirin (Aspirin 81 Mg Tab.Chew) [facility] Atorvastatin Calcium (Atorvastatin Calcium 80 Mg Tablet) 80 mg GT QHS [facility] Calcium/Vitamin D (Calcium Carb/Vitamin D 1 Tablet Tablet) 1 tablet GT DAILY [facility] Clopidogrel Bisulfate (Clopidogrel Bisulfate 75 Mg Tablet) 75 mg GT DAILY [facility] Folic Acid (Folic Acid 1 Mg Tablet) 1 mg GT DAILY@0800 [facility] Hydrochlorothiazide (Hydrochlorothiazide 12.5mg) 12.5 mg GT DAILY [facility] Norepinephrine Bitartrate 8 mg (/ Sodium Chloride) 250 mls @ 9.375 mls/hr CONT INF .[id number] [facility]; Protocol Last Titration: 05/27/20 07:00 Dose: 5 mcg/min, 9.4 mls/hr Documented by: Sodium Chloride () 1,000 mls @ 75 mls/hr IV .[id number] [facility] Last Infusion: 05/27/20 06:00 Dose: 75 mls/hr Documented by: Propofol (Diprivan) 1,000 mg in 100 mls @ 3.996 mls/hr CONT INF .Q12H [facility]; Protocol Last Titration: 05/27/20 07:00 Dose: 10.01 mcg/kg/min, 4 mls/hr Documented by: Fentanyl Citrate 1,000 mcg/ (Sodium Chloride) 100 mls @ 2.5 mls/hr CONT INF .Q40H [facility]; Protocol Last Admin: 05/27/20 03:14 Dose: Not Given Documented by: Sodium Chloride () 250 mls @ 15 mls/hr IV .[id number] PRN PRN Reason: Saline Flush Pantoprazole Sodium 80 mg/ (Sodium Chloride) 100 mls @ 10 mls/hr CONT INF Q10H [facility] Last Infusion: 05/27/20 06:00 Dose: 10 mls/hr Documented by: Losartan Potassium (Losartan Potassium 100 Mg Tablet) 100 mg GT DAILY [facility] Metoprolol Tartrate (Metoprolol Tartrate 50 Mg Tablet) 50 mg GT BID [facility] Multivitamins (Multivitamins,Therapeutic Tablet) [facility] Rowpy-1-Wrwu Ethyl Esters ([place]-3 Acid Ethyl Esters 1 Gm Capsule) 1 gm PO BID [facility] Last Admin: 05/27/20 03:15 Dose: Not Given Documented by: Sodium Chloride (0.9% Saline Lock 10 Ml Syringe) 10 - 40 ml IV UD PRN PRN Reason: SALINE FLUSH Assessment/Plan All Active Problems (Last Updated 05/27/20 @ 16:36 by Anne Enrique) Cardiogenic shock (Acute 05/26/20) STEMI (ST elevation myocardial infarction) (Acute 05/26/20) Acute respiratory failure with hypoxia (Acute 05/26/20) 84-year-old female status post heart cath currently on aortic balloon pump status post cardiac stents on aspirin Plavix, right red blood from NG I have discussed the above with the patient's as patient is intubated and sedated. I have offered the patient EGD for evaluation. I have explained the risks/benefits of the procedure and described the procedure. I have discussed the risks with the patient, including but not limited to: infection, bleeding, perforation of the GI tract requiring emergency surgery, inability to complete the procedure, injury to any internal organs, unable to stop the bleeding may require transfer to her tertiary care facility with GI, complications of anesthesia, etc. - the patient's understands and agrees to proceed. I have answered all the patient's questions to the patient's satisfaction and the patient has no further questions. Inpatient E&M: 75434 Init Hosp L2
--- NOTE | 2020-05-27 07:51 | CON.PCM_ITS ---
Problem List (1) Acute respiratory failure with hypoxia Status: Acute (2) STEMI (ST elevation myocardial infarction) Status: Acute Qualifiers: Involved coronary artery: left main coronary artery Qualified Code(s): I21.01 - ST elevation (STEMI) myocardial infarction involving left main coronary artery (3) Hyperlipemia, mixed Status: Chronic (4) Essential (primary) hypertension Status: Chronic Reason for Consult Date of Consultation: 05/27/20 Reason for Consultation: Respiratory failure History of Present Illness: The patient is an 84 year old F, with past medical history listed below, who presented to [facility] 05/26/2020 secondary to progressive and persistent chest pain that she developed while putting up holiday decorations. Patient had described this as an achy pain that was 5 out of 10 and radiated down her left arm. This was exacerbated with exertion and alleviated with resting. Patient did have some shortness of breath, but denied any nausea, vomiting or diaphoresis. Patient stated that she had had a similar type chest pain for about a month, but had attributed this to GERD. On presentation to the ER, patient had an EKG showing diffuse ST depression in the inferior and precordial leads. Patient also had an elevation in aVR that was noted to be a significant change from 2010. Laboratory work-up showed no significant leukocytosis with a white blood cell count of 6.9 and normal renal function with a creatinine of 0.92. Bicarbonate was elevated at 31, along with glucose at 180. Troponins were negative. While in ER, patient decompensated requiring a nonrebreather to maintain saturations. Patient was unable to lie flat and there was concern for an ST elevation NM, so patient was intubated and placed on 100% FiO2. Patient received Dilaudid, fentanyl and vecuronium. Post intubation chest x-ray showed a right mainstem intubation, so this was withdrawn. X-ray was also significant for pulmonary edema bilaterally. Patient started to develop hypotension and was placed on Levophed. Patient was then transported to the [facility] for interventions. [facility] interventions were reviewed on the report. Patient was then transferred to the intensive care unit for further evaluation with an intra- aortic balloon pump, Levophed and mechanical ventilation. This morning, patient is sedated, but does open her eyes to voice. Patient is not able to provide any additional history. Patient was switched to 1-2 augmentation this morning and appears to be tolerating this well. Patient currently has 3 femoral sheaths and an arterial sheath. Oxygenation has significantly improved and patient has been able to be weaned to 30% FiO2. Patient has developed a fever, but nursing is reporting minimal endotracheal secretions. Unable to obtain a review of systems secondary to intubated and sedated state. Past Medical History Past Medical History (Chronic Problems): Chronic Problems (Last Reviewed 05/26/20 @ 23:[address] Manolo Walden MD) History of left heart catheterization (Chronic 02/10/19) 02/10/2019:Normal LV size, wall motion,and systolic function; Non obstructive coronary arteries Widely patent LAD stent with no evidence of compromise of ostial LCX. Per [facility] @ [facility]. 12/26/2016:NormalLV size, wall motion, and sytolic function. Nonobstructive coronary arteries. Widely patent stent in distal LM and proximal LAD. False positive stress test most likely due to HTN BP response to exercise per [facility] @ [facility] History of coronary artery stent placement (Chronic 06/06/11) [id number] LAD w/ 3.5 x 20 mm Promus EElement Stent Atherosclerosis of [place] coronary artery of [place] heart without angina pectoris (Chronic) Hyperlipemia, mixed (Chronic) Essential (primary) hypertension (Chronic) Medical History: Medical History (Last Reviewed 05/26/20 @ 23:[address] Manolo Walden MD) Atherosclerosis of [place] coronary artery of [place] heart without angina pectoris (Chronic) I25.10 Hyperlipemia, mixed (Chronic) E78.2 Essential (primary) hypertension (Chronic) I10 Anxiety F41.9 Allergies erythromycin base Allergy (Verified 05/26/20 20:20) sickness feeling Home Medications: Ambulatory Orders Medication Instructions Recorded Aspirin [Adult Low Dose Aspirin EC] 81 mg PO DAILY 12/25/16 Calcium Carbonate/Vitamin D3 1 ea PO DAILY 12/25/16 [Calcium 600-Vit D3 200 Tablet] Folic Acid 0.8 mg PO DAILY@0800 12/25/16 Multivitamins,Therapeutic 1 tab PO DAILY 12/25/16 [Multivitamin] Nitroglycerin (INPATIENT USE) 0.4 mg SUBLINGUAL Q5M PRN 12/25/16 [Nitrostat] omega-3 fatty acids-fish oil 300 1 cap PO BID cap 10/22/18 mg-1,000 mg capsule atorvastatin 80 mg tablet 80 mg PO QHS #90 tab 07/05/19 hydrochlorothiazide 12.5 mg capsule 12.5 mg PO DAILY #90 cap 07/05/19 losartan 100 mg tablet 100 mg PO DAILY #90 tab 01/10/20 metoprolol tartrate 50 mg tablet 50 mg PO BID #180 tab 01/10/20 Surgical History: Surgical History (Last Reviewed 05/26/20 @ 23:[address] Manolo Walden MD) History of left heart catheterization (Chronic) Onset Date: 02/10/19 Z98.890 02/10/2019:Normal LV size, wall motion,and systolic function; Non obstructive coronary arteries Widely patent LAD stent with no evidence of compromise of ostial LCX. Per [facility]N @ [facility]. 12/26/2016:NormalLV size, wall motion, and sytolic function. Nonobstructive coronary arteries. Widely patent stent in distal LM and proximal LAD. False positive stress test most likely due to HTN BP response to exercise per [facility] @ [facility] History of coronary artery stent placement (Chronic) Onset Date: 06/06/11 Z95.5 [id number] LAD w/ 3.5 x 20 mm Promus EElement Stent H/O tubal ligation Z98.51 Smoking Status: Never smoker - *Family History Maternal Family History: Family History (Last Reviewed 05/27/20 @ 02:[address] Manolo Walden MD) Father CAD (coronary artery disease) Brother Hypertension Mother Hypertension Sister Hypertension Review of Systems Unable to obtain accurate/complete ROS d/t: Intubated and sedated Patient Problems: Active and Suspected Problems (Last Reviewed 05/26/20 @ 23:[address] Manolo Walden MD) STEMI (ST elevation myocardial infarction) (Acute) Objective: Multiple chest x-rays were reviewed showing pulmonary edema. Intra-aortic balloon pump and endotracheal tube were in appropriate position on final x-ray. - Physical Exam Vitals/I&O's: Vital Signs Temp Pulse Resp BP Pulse Ox 38.4 C H 67 16 123/62 H 100 05/27/20 07:00 05/27/20 07:00 05/27/20 07:00 05/27/20 07:00 05/27/20 07:00 Oxygen Flow Rate (L/min) 2 Oxygen Delivery Method Mechanical Ventilator Weight: 67.9 kg Body Mass Index (BMI) 28.3 Intake and Output for Last 24 Hours 05/25/20 05/26/20 05/27/20 23:59 23:59 23:59 Intake Total 620.98 / 620.98 Output Total 450 / 450 Balance 170.98 / 170.98 General: - - Intubated and sedated. Good vent synchrony noted. HEENT: Atraumatic, PERRLA, EOMI, Normocephalic, - - No scleral icterus or injection noted Oral: Moist Mucosa, No Gingival or Mucosal Lesions/ Ulcerations Neck: Supple, No JVD, No Nodes, Trachea Midline Lungs: No rhonchi, No wheeze, No rales, Diminished, - - Symmetric expansion. Cardiovascular: Regular rate, Regular Rhythm, Normal S1, Normal S2, No murmurs, No rub noted, No Gallop, - - Augmented systolic pressure in the 130s on 07-31. Abdomen: Bowel Sounds Present, Soft, Non Tender, Non-Distended Extremities: No clubbing, No cyanosis, No edema Skin: - - Lines appear to be clean, dry and intact Musculoskeletal: No Tenderness to Palpation of Joints or Extremities Lymphatic: No Cervical, Supraclavicular, or Inguinal Adenopathy Neurological: Cranial nerves II-XII grossly intact, Neuro grossly intact, Motor Exam 5/5 strength throughout Psych/Mental Status: Flat Affect Microbiology Past 72 Hours 05/27/20 02:00 Gastric Fluid/Contents Gastric Occult Blood - Final Occult Blood Positive Laboratory Results 05/26/20 20:25: WBC 6.9, RBC 3.82 L, Hgb 12.8, Hct 39.0, MCV 102.1 H, MCH 33.5 H , MCHC 32.8, RDW Std Deviation 43.6, RDW Coeff of [place] 11.7, Plt Count 280, MPV 9.7, Immature Gran % (Auto) 0.400, Neut % (Auto) 52.7, Lymph % (Auto) 32.0, [place] % (Auto) 11.6 H, Eos % (Auto) 2.3, Baso % (Auto) 1.0, Absolute Neuts (auto) 3.6, Absolute Lymphs (auto) 2.20, Nucleated RBC % 0 05/26/20 20:25: Sodium 137, Potassium 3.5, Chloride 101, Carbon Dioxide 31.0, Anion Gap 5, BUN 20 H, Creatinine 0.92, Estim Creat Clear Calc 35.58, Est GFR (MDRD) Af Amer 75, Est GFR (MDRD) Non-Af 62, BUN/Creatinine Ratio 21.6 H, Glucose 180 H, Calcium 9.6, Troponin I 0.019 05/26/20 20:25: PT 12.6, INR 1.0, APTT 28.9 05/26/20 20:25: Total Creatine Kinase 94, Triglycerides 297 H 05/26/20 22:55: Activated Clotting Time 268 H 05/26/20 23:18: Activated Clotting Time 296 H 05/27/20 01:05: Specimen Type ART, Sample Site Art Line, pH 7.27 L, Bicarbonate Actual 24.3, Total CO2 26, Base Excess -3 L, O2 Saturation 98, O2 % 100, ABG pCO2 52.4 H, ABG pO2 124 H, Respiration Rate 12, O2 Delivery Device Adult Vent, Vent Mode AC, Tidal Volume 400, POC PEEP 5 05/27/20 01:15: Lactic Acid 2.2 H* 05/27/20 04:05: Troponin I Cancelled 05/27/20 04:05: Sodium Cancelled, Potassium Cancelled, Chloride Cancelled, Carbon Dioxide Cancelled, Anion Gap Cancelled, BUN Cancelled, Creatinine Cancelled, Estim Creat Clear Calc Cancelled, Est GFR (MDRD) Af Amer Cancelled, Est GFR (MDRD) Non-Af Cancelled, BUN/Creatinine Ratio Cancelled, Glucose Cancelled, Calcium Cancelled 05/27/20 04:05: WBC Cancelled, Corrected WBC Cancelled, RBC Cancelled, Hgb Cancelled, Hct Cancelled, MCV Cancelled, MCH Cancelled, MCHC Cancelled, RDW Std Deviation Cancelled, RDW Coeff of [place] Cancelled, Plt Count Cancelled, MPV C ancelled, Immature Gran % (Auto) Cancelled, Neut % (Auto) Cancelled, Lymph % (Auto) Cancelled, [place] % (Auto) Cancelled, Eos % (Auto) Cancelled, Baso % (Auto) Cancelled, Absolute Neuts (auto) Cancelled, Absolute Lymphs (auto) Cancelled, Total Counted Cancelled, Neutrophils % (Manual) Cancelled, Band Neutrophils % Cancelled, Lymphocytes % (Manual) Cancelled, Monocytes % (Manual) Cancelled, Eosinophils % (Manual) Cancelled, Basophils % (Manual) Cancelled, Metamyelocytes % Cancelled, Myelocytes % Cancelled, Promyelocytes % Cancelled, Blast Cells % Cancelled, Plasma Cell % (Manual) Cancelled, Other Cells % Cancelled, Nucleated RBC % Cancelled, Nucleated RBCs/100 WBC Cancelled, Differential Comment Cancelled, Diff Path Review Cancelled, Hypersegmented Neuts Cancelled, Atypical Lymphocytes Cancelled, Reactive Lymphocytes Cancelled, Smudge Cells Cancelled, Toxic Granulation Cancelled, Toxic Vacuolation Cancelled, Dohle Bodies Cancelled, José Manuel Rods Cancelled, Platelet Estimate Cancelled, Plt Morphology Comment Cancelled, RBC Morphology Cancelled, Polychromasia Cancelled, Hypochromasia Cancelled, Poikilocytosis Cancelled, Basophilic Stippling Cancelled, Anisocytosis Cancelled, Microcytosis Cancelled, Macrocytosis Cancelled, Spherocytes Cancelled, Sickle Cells Cancelled, Target Cells Cancelled, Tear Drop Cells Cancelled, Ovalocytes Cancelled, Stomatocytes Cancelled, [place] Bodies Cancelled, [place] Cells Cancelled, Bite Cells Cancelled, Crenated Cell Cancelled, Acanthocytes (Spur) Cancelled, Rouleaux Cancelled, Schistocytes Cancelled 05/27/20 05:00: WBC 16.9 H, RBC 3.27 L, Hgb 11.4 L, Hct 32.5 L, MCV 99.4 H, MCH 34.9 H, MCHC 35.1 D, RDW Std Deviation 42.7, RDW Coeff of [place] 11.7, Plt Count 250, MPV 9.5, Immature Gran % (Auto) 0.500, Neut % (Auto) 79.0 H, Lymph % (Auto) 9.6 L, [place] % (Auto) 10.5 H, Eos % (Auto) 0.1, Baso % (Auto) 0.3, Absolute Neuts (auto) 13.4 H, Absolute Lymphs (auto) 1.62, Nucleated RBC % 0, Differential Comment SCANNED, Diff Path Review [facility] 05/27/20 05:00: Sodium 139, Potassium 4.1, Chloride 108 H, Carbon Dioxide 24.0, Anion Gap 7, BUN 21 H, Creatinine 0.90, Estim Creat Clear Calc 36.37, Est GFR (MDRD) Af Amer 77, Est GFR (MDRD) Non-Af 63, BUN/Creatinine Ratio 23.3 H, Glucose 130 H, Calcium 8.0 L, Troponin I 12.800 H* 05/27/20 06:15: Troponin I 11.100 H* 05/27/20 06:15: Lactic Acid 2.4 H* Current Medications Aspirin (Aspirin 81 Mg Tab.Chew) 81 mg GT DAILYCM [place] Atorvastatin Calcium (Atorvastatin Calcium 80 Mg Tablet) 80 mg GT QHS [place] Calcium/Vitamin D (Calcium Carb/Vitamin D 1 Tablet Tablet) 1 tablet GT DAILY [place] Clopidogrel Bisulfate (Clopidogrel Bisulfate 75 Mg Tablet) 75 mg GT DAILY [place] Folic Acid (Folic Acid 1 Mg Tablet) 1 mg GT DAILY@0800 [place] Hydrochlorothiazide (Hydrochlorothiazide 12.5mg) 12.5 mg GT DAILY [place] Norepinephrine Bitartrate 8 mg (/ Sodium Chloride) 250 mls @ 9.375 mls/hr CONT INF .[id number] [place]; Protocol Last Titration: 05/27/20 07:00 Dose: 5 mcg/min, 9.4 mls/hr Documented by: Sodium Chloride () 1,000 mls @ 75 mls/hr IV .[id number] [place] Last Infusion: 05/27/20 06:00 Dose: 75 mls/hr Documented by: Propofol (Diprivan) 1,000 mg in 100 mls @ 3.996 mls/hr CONT INF .Q12H [place]; Protocol Last Titration: 05/27/20 07:00 Dose: 10.01 mcg/kg/min, 4 mls/hr Documented by: Fentanyl Citrate 1,000 mcg/ (Sodium Chloride) 100 mls @ 2.5 mls/hr CONT INF .Q40H [place]; Protocol Last Admin: 05/27/20 03:14 Dose: Not Given Documented by: Sodium Chloride () 250 mls @ 15 mls/hr IV .[id number] PRN PRN Reason: Saline Flush Pantoprazole Sodium 80 mg/ (Sodium Chloride) 100 mls @ 10 mls/hr CONT INF Q10H [place] Last Infusion: 05/27/20 06:00 Dose: 10 mls/hr Documented by: Losartan Potassium (Losartan Potassium 100 Mg Tablet) 100 mg GT DAILY [facility] Metoprolol Tartrate (Metoprolol Tartrate 50 Mg Tablet) 50 mg GT BID [facility] Multivitamins (Multivit[facility],Therapeutic Tablet) [facility] [id number] Ethyl Esters ([place]-3 Acid Ethyl Esters 1 Gm Capsule) 1 gm PO BID [place] Last Admin: 05/27/20 03:15 Dose: Not Given Documented by: Sodium Chloride (0.9% Saline Lock 10 Ml Syringe) 10 - 40 ml IV UD PRN PRN Reason: SALINE FLUSH Clinical Impression(s) from Imaging Studies Chest X-Ray 05/26/20 20:19 IMPRESSION: Mild pulmonary vascular congestion. Electronically Signed: Romeo Barclay, at 21:23 EST Tel , Service support , Chest X-Ray 05/26/20 21:43 IMPRESSION: Endotracheal tube has been withdrawn and now lies above the elham. OG tube extends below the gastroesophageal junction. Lung rand[place] remain well expanded with hazy infiltrates/edema in the upper lung zones and perihilar regions with prominent interstitial markings. Electronically Signed: Kate Yan MD at 23:01 EST , Service support , Chest X-Ray 05/26/20 21:55 IMPRESSION: Endotracheal tube extends into the right mainstem bronchus by 2 cm. Enteric tube extends below the gastroesophageal junction. Lung randh[place] are generally well expanded with hazy edematous changes of the upper lung zones and central lung zones with a diffuse increase in interstitial edema. Normal cardiac size. Atherosclerotic changes of the thoracic aorta. Electronically Signed: Kate Yan MD at 22:59 EST , Service support , Assessment/Plan Active and Suspected Problems (Last Reviewed 05/26/20 @ 23:[address] Manolo Walden MD) STEMI (ST elevation myocardial infarction) (Acute) RECOMMENDATIONS: 1. IABP management per cardiology 2. Wean pressors as tolerated 3. Spontaneous breathing and awakening trials per protocol 4. Possible EGD per surgery 5. Possibly transition to twice daily PPI pending EGD results IMPRESSIONS: 1. Cardiogenic shock secondary to ST elevation NM of the left main Patient currently on Levophed therapy. Patient has responded well to IABP. Defer to cardiology on timing for removal. Patient does have a fever at this time of unclear etiology. Recommend obtaining pancultures. 2. Acute hypoxic respiratory failure secondary to flash pulmonary edema Patient appears to be responding well to supportive measures. Oxygenation has significantly improved compared to presentation and improvement in hemodynamics. ABG this morning shows overventilation, so respiratory rate will be decreased. Anticipate continuing mechanical ventilation until intra-aortic balloon pump in GI issues can be controlled. 3. Acute blood loss anemia secondary to possible upper GI bleed Patient would require antiplatelet and anticoagulation from a GI standpoint. Patient noted to be guaiac positive from gastric secretions. Surgery has been consulted. EGD may be necessary. Defer to surgery. 4. Advanced age/hyperlipidemia/hypertension Complicates care, management, recovery and prognosis. Antihypertensive medication should be held secondary to acute condition. Defer statin to cardiology. TIME: 45 minutes of critical care time spent addressing patient's cardiogenic shock, respiratory failure, possible GI bleed, review of all data and collaboration with care team (6 AM to 8:15 AM) 9xxxx: [id number] Critical care first hour
[2020-05-27 08:06] LABS: Base Excess -2 mmol/L (-2 to +2); Bicarbonate 21.6 mmol/L (22-26); Blood Gas Specimen Type ART; FI02 30; Mode AC; O2 Delivery Device ET Tube; PEEP 5; PO2 96 mmHG (75-100); RR 16; SITE Art Line; SO2 98 % (95-99); Total Carbon Dioxide 23 mmol/L; Vt 400; pCO2 30.2 mmHg (35-45); pH 7.46 (7.35-7.45)
[2020-05-27] MEDS: LORazepam 2 MG/ML Syringe IV (09:40)
--- NOTE | 2020-05-27 10:07 | PN.CARD_ITS ---
Subjectve: Post intervention of the left main and mid left circumflex. Cardiogenic shock is much improved. Overnight patient had blood coming out of the NG tube. Endoscopy is being done today. Hemoglobin has not dropped that much. Frequent PACs with no ventricular tachyarrhythmia. Potassium is normal today. Patient is alert still intubated. Ejection fraction post PCI was at least 45%. Left ventricular end-diastolic pressure was 8 and pulmonary wedge pressure was around 8. Lactic acid is mildly elevated. White count is increased. Chest x-ray is pending. Patient has been put on 2-1 for the intra-aortic balloon pump. Pressure is on low-dose of IV Levophed. Blood culture is pending. Objective: Vital Signs Temp Pulse Resp BP Pulse Ox 101.7 F H 83 12 93/46 L 96 05/27/20 10:00 05/27/20 10:00 05/27/20 10:00 05/27/20 10:04 05/27/20 10:00 Oxygen Flow Rate (L/min) 2 Oxygen Delivery Method Mechanical Ventilator Weight: 149 lb 11.102 oz Body Mass Index (BMI) 28.3 Intake and Output for Last 24 Hours 05/25/20 05/26/20 05/27/20 23:59 23:59 23:59 Intake Total 683.95 / 683.95 Output Total 505 / 505 Balance 178.95 / 178.95 General: - - Intubated and sedated Neck: Supple Lungs: Clear to auscultation, - - Intubated Cardiovascular: Irregular Rhythm - With frequent PACs, No Murmurs Abdomen: Bowel Sounds Present, Soft, Non Tender, No HSM, No Organomegaly Neurological: - - Arousable, cooperative, partially sedated 05/26/20 20:25: WBC 6.9, RBC 3.82 L, Hgb 12.8, Hct 39.0, MCV 102.1 H, MCH 33.5 H , MCHC 32.8, Plt Count 280, MPV 9.7, Immature Gran % (Auto) 0.400, Neut % (Auto) 52.7, Lymph % (Auto) 32.0, [place] % (Auto) 11.6 H, Eos % (Auto) 2.3, Baso % (Auto) 1.0, Absolute Neuts (auto) 3.6, Nucleated RBC % 0 05/26/20 20:25: Sodium 137, Potassium 3.5, Chloride 101, Carbon Dioxide 31.0, Anion Gap 5, BUN 20 H, Creatinine 0.92, Est GFR (MDRD) Af Amer 75, Est GFR (MDRD) Non-Af 62, BUN/Creatinine Ratio 21.6 H, Glucose 180 H, Calcium 9.6, Troponin I 0.019 05/26/20 20:25: PT 12.6, INR 1.0, APTT 28.9 05/26/20 20:25: Triglycerides 297 H 05/27/20 01:05: pH 7.27 L, Bicarbonate Actual 24.3, Base Excess -3 L, O2 Saturation 98, ABG pCO2 52.4 H, ABG pO2 124 H 05/27/20 01:15: Lactic Acid 2.2 H* 05/27/20 04:05: Troponin I Cancelled 05/27/20 04:05: Sodium Cancelled, Potassium Cancelled, Chloride Cancelled, Carbon Dioxide Cancelled, Anion Gap Cancelled, BUN Cancelled, Creatinine Cancelled, Est GFR (MDRD) Af Amer Cancelled, Est GFR (MDRD) Non-Af Cancelled, BUN/Creatinine Ratio Cancelled, Glucose Cancelled, Calcium Cancelled 05/27/20 04:05: WBC Cancelled, Corrected WBC Cancelled, RBC Cancelled, Hgb Cancelled, Hct Cancelled, MCV Cancelled, MCH Cancelled, MCHC Cancelled, Plt Count Cancelled, MPV Cancelled, Immature Gran % (Auto) Cancelled, Neut % (Auto) Cancelled, Lymph % (Auto) Cancelled, [place] % (Auto) Cancelled, Eos % (Auto) Cancelled, Baso % (Auto) Cancelled, Absolute Neuts (auto) Cancelled, Total Counted Cancelled, Neutrophils % (Manual) Cancelled, Band Neutrophils % Cancelled, Lymphocytes % (Manual) Cancelled, Monocytes % (Manual) Cancelled, Eosinophils % (Manual) Cancelled, Basophils % (Manual) Cancelled, Metamyelocytes % Cancelled, Myelocytes % Cancelled, Promyelocytes % Cancelled, Blast Cells % Cancelled, Plasma Cell % (Manual) Cancelled, Other Cells % Cancelled, Nucleated RBC % Cancelled 05/27/20 05:00: WBC 16.9 H, RBC 3.27 L, Hgb 11.4 L, Hct 32.5 L, MCV 99.4 H, MCH 34.9 H, MCHC 35.1 D, Plt Count 250, MPV 9.5, Immature Gran % (Auto) 0.500, Neut % (Auto) 79.0 H, Lymph % (Auto) 9.6 L, [place] % (Auto) 10.5 H, Eos % (Auto) 0.1, Baso % (Auto) 0.3, Absolute Neuts (auto) 13.4 H, Nucleated RBC % 0 05/27/20 05:00: Sodium 139, Potassium 4.1, Chloride 108 H, Carbon Dioxide 24.0, Anion Gap 7, BUN 21 H, Creatinine 0.90, Est GFR (MDRD) Af Amer 77, Est GFR (MDRD) Non-Af 63, BUN/Creatinine Ratio 23.3 H, Glucose 130 H, Calcium 8.0 L, Troponin I 12.800 H* 05/27/20 06:15: Troponin I 11.100 H* 05/27/20 06:15: Lactic Acid 2.4 H* 05/27/20 07:57: pH 7.46 H, Bicarbonate Actual 21.6 L, Base Excess -2, O2 Saturation 98, ABG pCO2 30.2 L, ABG pO2 96 Rhythm: EKG: ECHO: Stress Test: Cardiac Cath: PCI: CT Surgery: Holter monitor: EPS: PPM: CXR: Chest CT Scan: Medical Necessity - Tobacco Use Smoking Status: Never smoker Assessment/Plan #1 severe ischemia on EKG most likely non-STEMI treated last night with angioplasty of the left main and ostial left anterior descending for in-stent restenosis. Patient was also treated with stenting of the mid left circumflex. Postop ejection fraction was 45%. Pulmonary wedge pressure and left ventricular end-diastolic pressure were 8. Patient is still on low-dose IV Levophed. Balloon pump is on 2-1. Renal output is decent. Lactic acid is mildly elevated. Plan: We will removed the balloon pump this morning due to GI bleed #2 GI bleed. Endoscopy this morning. Hemoglobin has not dropped that much. Patient has been on IV Protonix drip #3 increased lactic acid and increased white count, blood culture is pending. I would highly recommend IV antibiotic to be started
--- NOTE | 2020-05-27 10:11 | PCM.PN.HOSP ---
Patient Problems: Active and Suspected Problems (Last Reviewed 05/26/20 @ 23:[address] Manolo Walden MD) STEMI (ST elevation myocardial infarction) (Acute) Acute respiratory failure with hypoxia (Acute) Subjective: Patient seen and examined. She was admitted with a complaint of chest pain which was retrosternal and pressure-like with associated shortness of breath and nausea. The ED, EKG done showed ST elevation [place] and configuration specialist was emergently consulted. Patient went into respiratory failure in the ED and was emergently intubated. She also had rapid response called on account of shock whilst in the [employer]. She had PCI with stenting of the mid left circumflex artery and balloon angioplasty of the proximal left circumflex and proximal left anterior descending as well as proximal optimization technique of the mid and distal left main stent using angioplasty. Intra-aortic balloon pump was left in place. Patient subsequently developed a GI bleed with copious bloody fluid being aspirated from her NG tube.General surgery is on board, and she is to have a bedside EGD today. Patient seen and examined. SHe remains intubated and sedated. RASS score is -4. She also developed a fever, and is also febrile this morning. temperature is 101.7 this morning. wbc is also up to 16.9 today. Cardiology and critical care on board. She is also on elvophed o/a of cardiogenic shock. Vitals/I&O's: Vital Signs Temp Pulse Resp BP Pulse Ox 101.7 F H 83 12 93/46 L 96 05/27/20 10:00 05/27/20 10:00 05/27/20 10:00 05/27/20 10:04 05/27/20 10:00 Oxygen Flow Rate (L/min) 2 Oxygen Delivery Method Mechanical Ventilator Weight: 149 lb 11.102 oz Body Mass Index (BMI) 28.3 Intake and Output for Last 24 Hours 05/25/20 05/26/20 05/27/20 23:59 23:59 23:59 Intake Total 683.95 / 683.95 Output Total 505 / 505 Balance 178.95 / 178.95 General: - - intubated, sedated, RASS score is -4 HEENT: Atraumatic, PERRLA, EOMI, Normocephalic Oral: Dry Mucosa Neck: Supple, No JVD, Negative Carotid Bruits Lungs: - - diminished breath sounds bibasally, no wheezes or crackles. intubated Cardiovascular: Regular rate, Regular Rhythm, Normal S1, Normal S2, No murmurs Abdomen: Bowel Sounds Present, Soft, Non Tender Extremities: No clubbing, No cyanosis, No edema, Capillary Refill Less than 3 Seconds Skin: No rashes, No breakdown Musculoskeletal: No Tenderness to Palpation of Joints or Extremities Lymphatic: No Cervical, Supraclavicular, or Inguinal Adenopathy Neurological: - - intubated, heavily sedated. RASS score is -4 Microbiology Past 72 Hours 05/27/20 02:00 Gastric Fluid/Contents Gastric Occult Blood - Final Occult Blood Positive Laboratory Results 05/26/20 20:25: WBC 6.9, RBC 3.82 L, Hgb 12.8, Hct 39.0, MCV 102.1 H, MCH 33.5 H, MCHC 32.8, RDW Std Deviation 43.6, RDW Coeff of Rochelle 11.7, Plt Count 280, MPV 9.7, Immature Gran % (Auto) 0.400, Neut % (Auto) 52.7, Lymph % (Auto) 32.0, [place] % (Auto) 11.6 H, Eos % (Auto) 2.3, Baso % (Auto) 1.0, Absolute Neuts (auto) 3.6, Absolute Lymphs (auto) 2.20, Nucleated RBC % 0 05/26/20 20:25: Sodium 137, Potassium 3.5, Chloride 101, Carbon Dioxide 31.0, Anion Gap 5, BUN 20 H, Creatinine 0.92, Estim Creat Clear Calc 35.58, Est GFR (MDRD) Af Amer 75, Est GFR (MDRD) Non-Af 62, BUN/Creatinine Ratio 21.6 H, Glucose 180 H, Calcium 9.6, Troponin I 0.019 05/26/20 20:25: PT 12.6, INR 1.0, APTT 28.9 05/26/20 20:25: Total Creatine Kinase 94, Triglycerides 297 H 05/26/20 22:55: Activated Clotting Time 268 H 05/26/20 23:18: Activated Clotting Time 296 H 05/27/20 01:05: Specimen Type ART, Sample Site Art Line, pH 7.27 L, Bicarbonate Actual 24.3, Total CO2 26, Base Excess -3 L, O2 Saturation 98, O2 % 100, ABG pCO2 52.4 H, ABG pO2 124 H, Respiration Rate 12, O2 Delivery Device Adult Vent, Vent Mode AC, Tidal Volume 400, POC PEEP 5 05/27/20 01:15: Lactic Acid 2.2 H* 05/27/20 04:05: Troponin I Cancelled 05/27/20 04:05: Sodium Cancelled, Potassium Cancelled, Chloride Cancelled, Carbon Dioxide Cancelled, Anion Gap Cancelled, BUN Cancelled, Creatinine Cancelled, Estim Creat Clear Calc Cancelled, Est GFR (MDRD) Af Amer Cancelled, Est GFR (MDRD) Non-Af Cancelled, BUN/Creatinine Ratio Cancelled, Glucose Cancelled, Calcium Cancelled 05/27/20 04:05: WBC Cancelled, Corrected WBC Cancelled, RBC Cancelled, Hgb Cancelled, Hct Cancelled, MCV Cancelled, MCH Cancelled, MCHC Cancelled, RDW Std Deviation Cancelled, RDW Coeff of Rochelle Cancelled, Plt Count Cancelled, MPV Cancelled, Immature Gran % (Auto) Cancelled, Neut % (Auto) Cancelled, Lymph % (Auto) Cancelled, [place] % (Auto) Cancelled, Eos % (Auto) Cancelled, Baso % (Auto) Cancelled, Absolute Neuts (auto) Cancelled, Absolute Lymphs (auto) Cancelled, Total Counted Cancelled, Neutrophils % (Manual) Cancelled, Band Neutrophils % Cancelled, Lymphocytes % (Manual) Cancelled, Monocytes % (Manual) Cancelled, Eosinophils % (Manual) Cancelled, Basophils % (Manual) Cancelled, Metamyelocytes % Cancelled, Myelocytes % Cancelled, Promyelocytes % Cancelled, Blast Cells % Cancelled, Plasma Cell % (Manual) Cancelled, Other Cells % Cancelled, Nucleated RBC % Cancelled, Nucleated RBCs/100 WBC Cancelled, Differential Comment Cancelled, Diff Path Review Cancelled, Hypersegmented Neuts Cancelled, Atypical Lymphocytes Cancelled, Reactive Lymphocytes Cancelled, Smudge Cells Cancelled, Toxic Granulation Cancelled, Toxic Vacuolation Cancelled, Dohle Bodies Cancelled, José Manuel Rods Cancelled, Platelet Estimate Cancelled, Plt Morphology Comment Cancelled, RBC Morphology Cancelled, Polychromasia Cancelled, Hypochromasia Cancelled, Poikilocytosis Cancelled, Basophilic Stippling Cancelled, Anisocytosis Cancelled, Microcytosis Cancelled, Macrocytosis Cancelled, Spherocytes Cancelled, Sickle Cells Cancelled, Target Cells Cancelled, Tear Drop Cells Cancelled, Ovalocytes Cancelled, Stomatocytes Cancelled, Hollis-Coldstream Bodies Cancelled, Russell Cells Cancelled, Bite Cells Cancelled, Crenated Cell Cancelled, Acanthocytes (Spur) Cancelled, Rouleaux Cancelled, Schistocytes Cancelled 05/27/20 05:00: WBC 16.9 H, RBC 3.27 L, Hgb 11.4 L, Hct 32.5 L, MCV 99.4 H, MCH 34.9 H, MCHC 35.1 D, RDW Std Deviation 42.7, RDW Coeff of Rochelle 11.7, Plt Count 250, MPV 9.5, Immature Gran % (Auto) 0.500, Neut % (Auto) 79.0 H, Lymph % (Auto) 9.6 L, [place] % (Auto) 10.5 H, Eos % (Auto) 0.1, Baso % (Auto) 0.3, Absolute Neuts (auto) 13.4 H, Absolute Lymphs (auto) 1.62, Nucleated RBC % 0, Differential Comment SCANNED, Diff Path Review October05/27/20 05:00: Sodium 139, Potassium 4.1, Chloride 108 H, Carbon Dioxide 24.0, Anion Gap 7, BUN 21 H, Creatinine 0.90, Estim Creat Clear Calc 36.37, Est GFR (MDRD) Af Amer 77, Est GFR (MDRD) Non-Af 63, BUN/Creatinine Ratio 23.3 H, Glucose 130 H, Calcium 8.0 L, Troponin I 12.800 H* 05/27/20 06:15: Troponin I 11.100 H* 05/27/20 06:15: Lactic Acid 2.4 H* 05/27/20 07:57: Specimen Type ART, Sample Site Art Line, pH 7.46 H, Bicarbonate Actual 21.6 L, Total CO2 23, Base Excess -2, O2 Saturation 98, O2 % 30, ABG pCO2 30.2 L, ABG pO2 96, Respiration Rate 16, O2 Delivery Device ET Tube, Vent Mode AC, Tidal Volume 400, POC PEEP 5 Diagnostic Data Chest X-Ray 05/26/20 21:55 IMPRESSION: Endotracheal tube extends into the right mainstem bronchus by 2 cm. Enteric tube extends below the gastroesophageal junction. Lung randhawa are generally well expanded with hazy edematous changes of the upper lung zones and central lung zones with a diffuse increase in interstitial edema. Normal cardiac size. Atherosclerotic changes of the thoracic aorta. Electronically Signed: Kate Yan MD at 22:59 EST , Service support , Current Medications Aspirin (Aspirin 81 Mg Tab.Chew) 81 mg GT DAILY [place] Atorvastatin Calcium (Atorvastatin Calcium 80 Mg Tablet) 80 mg GT QHS [place] Calcium/Vitamin D (Calcium Carb/Vitamin D 1 Tablet Tablet) 1 tablet GT DAILY [place] Clopidogrel Bisulfate (Clopidogrel Bisulfate 75 Mg Tablet) 75 mg GT DAILY [place] Folic Acid (Folic Acid 1 Mg Tablet) 1 mg GT DAILY@0800 [facility] Last Admin: 05/27/20 10:00 Dose: Not Given Documented by: Hydrochlorothiazide (Hydrochlorothiazide 12.5mg) 12.5 mg GT DAILY [place] Norepinephrine Bitartrate 8 mg (/ Sodium Chloride) 250 mls @ 9.375 mls/hr CONT INF .[id number] [place]; Protocol Last Titration: 05/27/20 10:00 Dose: 5 mcg/min, 9.4 mls/hr Documented by: Sodium Chloride () 1,000 mls @ 75 mls/hr IV .[id number] [facility] Last Infusion: 05/27/20 06:00 Dose: 75 mls/hr Documented by: Propofol (Diprivan) 1,000 mg in 100 mls @ 3.996 mls/hr CONT INF .Q12H [place]; Protocol Last Titration: 05/27/20 10:04 Dose: 5 mcg/kg/min, 2 mls/hr Documented by: Fentanyl Citrate 1,000 mcg/ (Sodium Chloride) 100 mls @ 2.5 mls/hr CONT INF .Q40H [place]; Protocol Last Admin: 05/27/20 03:14 Dose: Not Given Documented by: Sodium Chloride () 250 mls @ 15 mls/hr IV .[id number] PRN PRN Reason: Saline Flush Pantoprazole Sodium 80 mg/ (Sodium Chloride) 100 mls @ 10 mls/hr CONT INF Q10H [facility] Last Infusion: 05/27/20 06:00 Dose: 10 mls/hr Documented by: Losartan Potassium (Losartan Potassium 100 Mg Tablet) 100 mg GT DAILY [facility] Metoprolol Tartrate (Metoprolol Tartrate 50 Mg Tablet) 50 mg GT BID [facility] Multivitamins (Multivitamins,Therapeutic Tablet) [facility] Last Admin: 05/27/20 10:00 Dose: Not Given Documented by: [id number] Ethyl Esters ([place]-3 Acid Ethyl Esters 1 Gm Capsule) 1 gm PO BID [facility] Last Admin: 05/27/20 03:15 Dose: Not Given Documented by: Sodium Chloride (0.9% Saline Lock 10 Ml Syringe) 10 - 40 ml IV UD PRN PRN Reason: SALINE FLUSH STROKE Vital Signs/Narrative: Vital Signs Temp Pulse Resp BP BP BP Pulse Ox 05/27/20 10:04 93/46 L 05/27/20 10:00 101.7 F H 83 12 92/49 L 96 05/27/20 08:54 98 05/27/20 08:00 101.6 F H 75 12 115/60 76/30 L 88/35 L 98 05/27/20 07:00 101.1 F H 67 16 123/62 H 100 Medical Necessity - Tobacco Use Smoking Status: Never smoker Assessment/Plan All Active Problems (Last Reviewed 05/26/20 @ 23:[address] Manolo Walden MD) STEMI (ST elevation myocardial infarction) (Acute) Acute respiratory failure with hypoxia (Acute) #STEMI s/p cardiac cath. was emergently intubated o/a of respiratory failure aspirin, brilinta on hold o/a of upper gi bleed on high intensity statin has aortic balloon pump in place cardiology on board # Cardiogenic shock currently on levophed and dopamine cardiology on board. has an intraoaortic balloon pump in place cardiology on board # Acute upper GI bleed started having upper GI bleed after cardiac cath on IV protonix general surgery on board for bedside EGd today. Aspirin and brilinta on hold. on plavix # Hypokalemia: resolved # Sepsis: #Acute hypoxic respiratory failure Seems patient had flash pulmonary edema. Currently intubated and sedated. Pulmonology on board. on breathing treatment with bronchodilators # Acute blood loss anemia due to UGI bleed # Severe sepsis Patient has fever and leukocytosis. Lactic acid also elevated to 2.4. Blood cultures and urine cultures pending. will start broad spectrum antibiotics whilst awaiting culture results #Hypertension: on losartan and metoprolol as well as hydrochlorothiazide. These are currently on hold due to patient being on vasopressors. DVT prophylaxis: on hold o/a of GI bleed GI prophylaxis; on PPI Inpatient E&M: [id number] [facility] Hosp L3
--- NOTE | 2020-05-27 11:03 | OP.EGD_ITS ---
Patient Name: Susu Silvestre Procedure Date: 05/27/2020 10:41 AM Date of : 1935 Age: 84 Procedure: Upper GI endoscopy Indications: Hematochezia, Recent gastrointestinal bleeding Providers: Nedra Medeiros MD Referring MD: Lamonte Valentin Md Medicines: Monitored Anesthesia Care Patient Profile: This is an 84 year old female. Complications: No immediate complications. Procedure: Pre-Anesthesia Assessment: - Prior to the procedure, a History and Physical was performed, and patient medications and allergies were reviewed. The patient's tolerance of previous anesthesia was also reviewed. The risks and benefits of the procedure and the sedation options and risks were discussed with the patient. All questions were answered, and informed consent was obtained. Prior Anticoagulants: The patient has taken Plavix (clopidogrel), last dose was day of procedure. ASA Grade Assessment: Per Entry Level Sales Associate. After reviewing the risks and benefits, the patient was deemed in satisfactory condition to undergo the procedure. After obtaining informed consent, the endoscope was passed under direct vision. Throughout the procedure, the patient's blood pressure, pulse, and oxygen saturations were monitored continuously.The upper GI endoscopy was somewhat difficult due to ETT/OG tube and large clot in fundus. The procedure was aided by attempted lavage of clot but unable to clear. The patient tolerated the procedure. The gastroscope was introduced through the mouth, with the intention of advancing to the duodenum. The scope was advanced to the antrum before the procedure was aborted as patient was having emesis. Medications were given. Findings: Clotted blood was found in the gastric fundus. Unable to well due to clot, but no active bleeding appreciated as antrum was free from clot or blood. Impression: - Clotted blood in the gastric fundus. - No specimens collected. Recommendation: - Repeat upper endoscopy in few days vs outpt as poor visualization unless there are signs of bleeding. - Use Protonix (pantoprazole) 40 mg IV daily while in hospital & will change to PO Qday vs BID on D/C. - Continue present medications. Procedure Code(s): --- Professional --- 55469, 52, Esophagogastroduodenoscopy, flexible, transoral; diagnostic, including collection of specimen(s) by brushing or washing, when performed (separate procedure) Diagnosis Code(s): --- Professional --- K92.1, Melena (includes Hematochezia) K92.2, Gastrointestinal hemorrhage, unspecified CPT copyright 2017 [employer]. All rights reserved. The codes documented in this report are preliminary and upon qual research manager review may be revised to meet current compliance requirements. MD Nedra Pederson MD 05/27/2020 11:03:06 AM This report has been signed electronically. Number of Addenda: 0 Note Initiated On: 05/27/2020 10:41 AM
--- NOTE | 2020-05-27 11:03 | OP.CCLET_ITS ---
05/27/2020 Ora Lopez Do Re : Upper GI endoscopy procedure for Susu Silvestre Dear Jessica This procedure was performed on Wednesday, May 27, 2020. My impressions and recommendations are as follows: Impressions : - Clotted blood in the gastric fundus. - No specimens collected. Recommendations : - Repeat upper endoscopy in few days vs outpt as poor visualization unless there are signs of bleeding. - Use Protonix (pantoprazole) 40 mg IV daily while in hospital & will change to PO Qday vs BID on D/C. - Continue present medications. My findings are described in the full procedure note, which is enclosed. If I can be of further assistance, please feel free to contact me at Doctor phone number(s): , Work: . Sincerely, MD Nedra Pederson MD 05/27/2020 11:03:06 AM This report has been signed electronically.
[2020-05-27] MEDS: 0.9% Normal Saline 1,000 ML 150 ML IV ×2 (11:40→18:07)
[2020-05-27] MEDS: Omega-3 Acid Ethyl Esters 1 GM Capsule PO (12:37)
[2020-05-27] MEDS: Aspirin 81 MG TAB.CHEW GT (12:37)
[2020-05-27] MEDS: Calcium Carb/Vitamin D 1 TABLET Tablet GT (12:37)
[2020-05-27] MEDS: Aspirin E.C. 81 MG Tablet PO (12:37)
[2020-05-27] MEDS: Clopidogrel Bisulfate 75 MG Tablet GT (12:38)
[2020-05-27 12:53] LABS: Hematocrit 29.4 % (37-47); Hemoglobin 9.9 g/dL (12.0-15.0)
[2020-05-27] MEDS: Ceftriaxone 1 GM/50 ML BAG IV (13:35)
[2020-05-27] MEDS: 0.9% Saline Lock 10 ML Syringe IV (13:38)
[2020-05-27] MEDS: Acetaminophen 650 MG/20 ML UDC GT (15:40)
[2020-05-27] MEDS: Chlorhexidine 15 ML PO ×2 (16:36→21:54)
[2020-05-27 19:12] LABS: Hemoglobin 9.3 g/dL (12.0-15.0)
--- NOTE | 2020-05-27 19:18 | RAD_ITS ---
HISTORY: dyspnea, possible aspiration. Comparison is from yesterday. Findings: The endotracheal tube terminates superimposed over the trachea, below the level of the clavicular heads, and above the elham. Esophagogastric tube's tip is below the diaphragm. Lungs are adequately expanded Heart is not enlarged. Calcific plaque within the aortic arch persists. Basilar airspace disease may be present. There is likely small bilateral pleural effusions. RAD/Chest 1 View (Portable) IMPRESSION: Adequate position of endotracheal tube. Diffuse nondescript airspace disease, unlikely focal pneumonia. at [id number] Reported and signed by: Jose Maya MD Electronically Signed: Jose Maya MD at 23:58 EST Tel , Service support ,
[2020-05-27] MEDS: Atorvastatin Calcium 80 MG Tablet GT (21:54)
[2020-05-28] VITALS (62 sets, daily range): BP systolic 78–147; BP diastolic 38–84; PULSE 74–139; RESP 12–22; TEMP 37.7–38.5; O2SAT 93–100
[2020-05-28] MEDS: 0.9% Normal Saline 1,000 ML 150 ML IV ×4 (00:47→22:17)
[2020-05-28 01:32] LABS: Hemoglobin 9.9 g/dL (12.0-15.0)
[2020-05-28] MEDS: Propofol 10MG/Ml 1,000 MG/100 ML Bottle 4 MG CONT INF (05:57)
--- NOTE | 2020-05-28 06:00 | RAD_ITS ---
STUDY: X-RAY CHEST REASON FOR EXAM: Female, 84 years old. DYSPNEA, STEMI X 3 DAYS AGO TECHNIQUE: Single AP portable view of the chest. COMPARISON: Chest x-ray yesterday FINDINGS: Stable ET tube and enteric tube. Stable COPD with subtle patchy airspace disease. Overall, no significant interval change RAD/Chest 1 View (Portable) IMPRESSION: As above Electronically Signed: Clayton Wong DO at 8:31 EST Tel , Service support ,
[2020-05-28 06:01] LABS: Absolute Lymphocyte Count 1.44 X10^3/uL (0.83-4.51); Absolute Neutrophil Count 9.3 X10^3/uL (2.0-7.7); Basophil# 0.07 X10^3/uL; Basophil% 0.6 % (0-1); Eosinophil# 0.03 X10^3/uL; Eosinophils% 0.2 % (0-5); Hemoglobin 9.2 g/dL (12.0-15.0); Lymphocyte # 1.44 X10^3/ul (4.0); Lymphocyte % 11.5 % (19-41); Mean Corp Hgb Conc 32.9 g/dL (32-36); Mean Corpuscular Hgb 34.2 pg (27.0-32.0); Mean Corpuscular Volume 104.1 fL (81-99); Monocyte# 1.58 X10^3/uL; Monocyte% 12.6 % (0-10); NRBC Flagged by Analyzer 0 % (0-5); Neutrophil # 9.33 X10^3/uL (2.7-7.7); Neutrophil % 74.7 % (47-70); POSITIVE DIFFERENTIAL YES; Platelet Count 194 K/mm3 (150-450); RBC Distribution Width CV 12.2 % (11.6-14.6); RBC Distribution Width SD 46.5 fl (35.1-43.9); Red Blood Count 2.69 M/mm3 (4.2-5.4); White Blood Count 12.5 K/mm3 (4.4-11.0)
[2020-05-28 06:02] LABS: Differential Indicated SCAN CRITERIA MET
[2020-05-28 06:18] LABS: ALB/GLOB Ratio 0.9 RATIO (0.9-2.4); AST(SGOT) 44 U/L (15-37); Alanine Aminotransfer ALT/SGPT 25 U/L (13-56); Albumin, Serum 2.4 g/dL (3.2-5.0); Alkaline Phosphatase 63 U/L (45-117); Anion Gap 6 (5-15); BUN 16 mg/dL (7-18); BUN/Creat Ratio 25.8 RATIO (10-20); Calcium,Total 7.9 mg/dL (8.5-10.1); Chloride 111 mmol/L (98-107); Creatinine, Serum 0.62 mg/dL (0.55-1.02); EST Glomerular Filtration Rate 98 mL/min (>60); Est Glom Filt Rate - Afr Amer 119 mL/min (>60); Estimated Creatinine Clearance 32.73 ml/min; Globulin 2.8 g/dL (2.2-4.2); Glucose 135 mg/dL (74-106); Potassium 3.5 mmol/L (3.5-5.1); Protein, Total 5.2 g/dL (6.4-8.2); Sodium Level 141 mmol/L (136-145)
[2020-05-28 06:35] LABS: Differential Comment SCANNED
[2020-05-28] MEDS: TITRATION PARAMETER CHANGE 1 EACH IV ×2 (06:57→07:40)
--- NOTE | 2020-05-28 07:01 | PCM.PN.INT ---
Subjective: Patient did okay overnight. Significant fever was noted and patient continues to be on Levophed to maintain blood pressures. Patient did have intra-aortic balloon pump removed yesterday without complication. General: No apparent distress, - - Intubated and sedated. Good vent synchrony noted. HEENT: Atraumatic, PERRLA, EOMI, Normocephalic, - - No scleral icterus or injection noted Oral: Moist Mucosa, No Gingival or Mucosal Lesions/ Ulcerations, - - Dark coffee ground secretions noted from OG Neck: Supple, No JVD, No Nodes, Trachea Midline Lungs: No rhonchi, No wheeze, No rales, Diminished, - - Symmetric expansion. No dullness to percussion. Cardiovascular: Regular rate, Regular Rhythm, Normal S1, Normal S2, No murmurs, No rub noted, No Gallop Abdomen: Bowel Sounds Present, Soft, Non Tender, Non-Distended Extremities: No clubbing, No cyanosis, Edema - Trace to 1+ Skin: - - No change compared to previous Musculoskeletal: No Tenderness to Palpation of Joints or Extremities Lymphatic: No Cervical, Supraclavicular, or Inguinal Adenopathy Neurological: Cranial nerves II-XII grossly intact, Motor Exam 5/5 strength throughout, Sensory exam intact to light touch and pain Psych/Mental Status: Flat Affect Vital Signs Temp Pulse Resp BP Pulse Ox 37.8 C H 99 18 117/41 L 97 05/28/20 06:00 05/28/20 06:00 05/28/20 06:00 05/28/20 06:45 05/28/20 06:00 Oxygen Flow Rate (L/min) 2 Oxygen Delivery Method Mechanical Ventilator Weight: 68.8 kg Body Mass Index (BMI) 28.3 Intake and Output for Last 24 Hours 05/26/20 05/27/20 05/28/20 23:59 23:59 23:59 Intake Total 2948.06 / 3018.88 1327.42 / 1327.42 Output Total 1515 / 1515 335 / 335 Balance 1433.06 / 1503.88 992.42 / 992.42 Labs (Last 48 Hours) 05/26/20 05/26/20 05/26/20 20:25 20:25 20:25 WBC 6.9 Corrected WBC RBC 3.82 L Hgb 12.8 Hct 39.0 MCV 102.1 H MCH 33.5 H MCHC 32.8 RDW Std Deviation 43.6 RDW Coeff of Rochelle 11.7 Plt Count 280 MPV 9.7 Immature Gran % (Auto) 0.400 Neut % (Auto) 52.7 Lymph % (Auto) 32.0 [place] % (Auto) 11.6 H Eos % (Auto) 2.3 Baso % (Auto) 1.0 Absolute Neuts (auto) 3.6 Absolute Lymphs (auto) 2.20 Total Counted Neutrophils % (Manual) Band Neutrophils % Lymphocytes % (Manual) Monocytes % (Manual) Eosinophils % (Manual) Basophils % (Manual) Metamyelocytes % Myelocytes % Promyelocytes % Blast Cells % Plasma Cell % (Manual) Other Cells % Nucleated RBC % 0 Nucleated RBCs/100 WBC Differential Comment Diff Path Review Hypersegmented Neuts Atypical Lymphocytes Reactive Lymphocytes Smudge Cells Toxic Granulation Toxic Vacuolation Dohle Bodies José Manuel Rods Platelet Estimate Plt Morphology Comment RBC Morphology Polychromasia Hypochromasia Poikilocytosis Basophilic Stippling Anisocytosis Microcytosis Macrocytosis Spherocytes Sickle Cells Target Cells Tear Drop Cells Ovalocytes Stomatocytes [place] Bodies [place] Cells Bite Cells Crenated Cell Acanthocytes (Spur) Rouleaux Schistocytes PT 12.6 INR 1.0 APTT 28.9 Activated Clotting Time Specimen Type Sample Site pH Bicarbonate Actual Total CO2 Base Excess O2 Saturation O2 % ABG pCO2 ABG pO2 Respiration Rate O2 Delivery Device Vent Mode Tidal Volume POC PEEP Sodium 137 Potassium 3.5 Chloride 101 Carbon Dioxide 31.0 Anion Gap 5 BUN 20 H Creatinine 0.92 Estim Creat Clear Calc 35.58 Est GFR (MDRD) Af Amer 75 Est GFR (MDRD) Non-Af 62 BUN/Creatinine Ratio 21.6 H Glucose 180 H Lactic Acid Calcium 9.6 Total Bilirubin AST ALT Alkaline Phosphatase Total Creatine Kinase Troponin I 0.019 Total Protein Albumin Globulin Albumin/Globulin Ratio Triglycerides COVID-19 (EMMETT) 05/26/20 05/26/20 05/26/20 20:25 22:55 23:18 WBC Corrected WBC RBC Hgb Hct MCV MCH MCHC RDW Std Deviation RDW Coeff of Rochelle Plt Count MPV Immature Gran % (Auto) Neut % (Auto) Lymph % (Auto) [place] % (Auto) Eos % (Auto) Baso % (Auto) Absolute Neuts (auto) Absolute Lymphs (auto) Total Counted Neutrophils % (Manual) Band Neutrophils % Lymphocytes % (Manual) Monocytes % (Manual) Eosinophils % (Manual) Basophils % (Manual) Metamyelocytes % Myelocytes % Promyelocytes % Blast Cells % Plasma Cell % (Manual) Other Cells % Nucleated RBC % Nucleated RBCs/100 WBC Differential Comment Diff Path Review Hypersegmented Neuts Atypical Lymphocytes Reactive Lymphocytes Smudge Cells Toxic Granulation Toxic Vacuolation Dohle Bodies José Manuel Rods Platelet Estimate Plt Morphology Comment RBC Morphology Polychromasia Hypochromasia Poikilocytosis Basophilic Stippling Anisocytosis Microcytosis Macrocytosis Spherocytes Sickle Cells Target Cells Tear Drop Cells Ovalocytes Stomatocytes [place] Bodies [place] Cells Bite Cells Crenated Cell Acanthocytes (Spur) Rouleaux Schistocytes PT INR APTT Activated Clotting Time 268 H 296 H Specimen Type Sample Site pH Bicarbonate Actual Total CO2 Base Excess O2 Saturation O2 % ABG pCO2 ABG pO2 Respiration Rate O2 Delivery Device Vent Mode Tidal Volume POC PEEP Sodium Potassium Chloride Carbon Dioxide Anion Gap BUN Creatinine Estim Creat Clear Calc Est GFR (MDRD) Af Amer Est GFR (MDRD) Non-Af BUN/Creatinine Ratio Glucose Lactic Acid Calcium Total Bilirubin AST ALT Alkaline Phosphatase Total Creatine Kinase 94 Troponin I Total Protein Albumin Globulin Albumin/Globulin Ratio Triglycerides 297 H COVID-19 (EMMETT) 05/27/20 05/27/20 05/27/20 01:05 01:15 04:05 WBC Corrected WBC RBC Hgb Hct MCV MCH MCHC RDW Std Deviation RDW Coeff of Rochelle Plt Count MPV Immature Gran % (Auto) Neut % (Auto) Lymph % (Auto) [place] % (Auto) Eos % (Auto) Baso % (Auto) Absolute Neuts (auto) Absolute Lymphs (auto) Total Counted Neutrophils % (Manual) Band Neutrophils % Lymphocytes % (Manual) Monocytes % (Manual) Eosinophils % (Manual) Basophils % (Manual) Metamyelocytes % Myelocytes % Promyelocytes % Blast Cells % Plasma Cell % (Manual) Other Cells % Nucleated RBC % Nucleated RBCs/100 WBC Differential Comment Diff Path Review Hypersegmented Neuts Atypical Lymphocytes Reactive Lymphocytes Smudge Cells Toxic Granulation Toxic Vacuolation Dohle Bodies José Manuel Rods Platelet Estimate Plt Morphology Comment RBC Morphology Polychromasia Hypochromasia Poikilocytosis Basophilic Stippling Anisocytosis Microcytosis Macrocytosis Spherocytes Sickle Cells Target Cells Tear Drop Cells Ovalocytes Stomatocytes [place] Bodies Mitzi Cells Bite Cells Crenated Cell Acanthocytes (Spur) Rouleaux Schistocytes PT INR APTT Activated Clotting Time Specimen Type ART Sample Site Art Line pH 7.27 L Bicarbonate Actual 24.3 Total CO2 26 Base Excess -3 L O2 Saturation 98 O2 % 100 ABG pCO2 52.4 H ABG pO2 124 H Respiration Rate 12 O2 Delivery Device Adult Vent Vent Mode AC Tidal Volume 400 POC PEEP 5 Sodium Potassium Chloride Carbon Dioxide Anion Gap BUN Creatinine Estim Creat Clear Calc Est GFR (MDRD) Af Amer Est GFR (MDRD) Non-Af BUN/Creatinine Ratio Glucose Lactic Acid 2.2 H* Calcium Total Bilirubin AST ALT Alkaline Phosphatase Total Creatine Kinase Troponin I Cancelled Total Protein Albumin Globulin Albumin/Globulin Ratio Triglycerides COVID-19 (EMMETT) 05/27/20 05/27/20 05/27/20 04:05 04:05 05:00 WBC Cancelled 16.9 H Corrected WBC Cancelled RBC Cancelled 3.27 L Hgb Cancelled 11.4 L Hct Cancelled 32.5 L MCV Cancelled 99.4 H MCH Cancelled 34.9 H MCHC Cancelled 35.1 D RDW Std Deviation Cancelled 42.7 RDW Coeff of Rochelle Cancelled 11.7 Plt Count Cancelled 250 MPV Cancelled 9.5 Immature Gran % (Auto) Cancelled 0.500 Neut % (Auto) Cancelled 79.0 H Lymph % (Auto) Cancelled 9.6 L [place] % (Auto) Cancelled 10.5 H Eos % (Auto) Cancelled 0.1 Baso % (Auto) Cancelled 0.3 Absolute Neuts (auto) Cancelled 13.4 H Absolute Lymphs (auto) Cancelled 1.62 Total Counted Cancelled Neutrophils % (Manual) Cancelled Band Neutrophils % Cancelled Lymphocytes % (Manual) Cancelled Monocytes % (Manual) Cancelled Eosinophils % (Manual) Cancelled Basophils % (Manual) Cancelled Metamyelocytes % Cancelled Myelocytes % Cancelled Promyelocytes % Cancelled Blast Cells % Cancelled Plasma Cell % (Manual) Cancelled Other Cells % Cancelled Nucleated RBC % Cancelled 0 Nucleated RBCs/100 WBC Cancelled Differential Comment Cancelled SCANNED Diff Path Review Cancelled May foll Hypersegmented Neuts Cancelled Atypical Lymphocytes Cancelled Reactive Lymphocytes Cancelled Smudge Cells Cancelled Toxic Granulation Cancelled Toxic Vacuolation Cancelled Dohle Bodies Cancelled José Manuel Rods Cancelled Platelet Estimate Cancelled Plt Morphology Comment Cancelled RBC Morphology Cancelled Polychromasia Cancelled Hypochromasia Cancelled Poikilocytosis Cancelled Basophilic Stippling Cancelled Anisocytosis Cancelled Microcytosis Cancelled Macrocytosis Cancelled Spherocytes Cancelled Sickle Cells Cancelled Target Cells Cancelled Tear Drop Cells Cancelled Ovalocytes Cancelled Stomatocytes Cancelled [place] Bodies Cancelled Mitzi Cells Cancelled Bite Cells Cancelled Crenated Cell Cancelled Acanthocytes (Spur) Cancelled Rouleaux Cancelled Schistocytes Cancelled PT INR APTT Activated Clotting Time Specimen Type Sample Site pH Bicarbonate Actual Total CO2 Base Excess O2 Saturation O2 % ABG pCO2 ABG pO2 Respiration Rate O2 Delivery Device Vent Mode Tidal Volume POC PEEP Sodium Cancelled Potassium Cancelled Chloride Cancelled Carbon Dioxide Cancelled Anion Gap Cancelled BUN Cancelled Creatinine Cancelled Estim Creat Clear Calc Cancelled Est GFR (MDRD) Af Amer Cancelled Est GFR (MDRD) Non-Af Cancelled BUN/Creatinine Ratio Cancelled Glucose Cancelled Lactic Acid Calcium Cancelled Total Bilirubin AST ALT Alkaline Phosphatase Total Creatine Kinase Troponin I Total Protein Albumin Globulin Albumin/Globulin Ratio Triglycerides COVID-19 (EMMETT) 05/27/20 05/27/20 05/27/20 05:00 06:15 06:15 WBC Corrected WBC RBC Hgb Hct MCV MCH MCHC RDW Std Deviation RDW Coeff of Rochelle Plt Count MPV Immature Gran % (Auto) Neut % (Auto) Lymph % (Auto) [place] % (Auto) Eos % (Auto) Baso % (Auto) Absolute Neuts (auto) Absolute Lymphs (auto) Total Counted Neutrophils % (Manual) Band Neutrophils % Lymphocytes % (Manual) Monocytes % (Manual) Eosinophils % (Manual) Basophils % (Manual) Metamyelocytes % Myelocytes % Promyelocytes % Blast Cells % Plasma Cell % (Manual) Other Cells % Nucleated RBC % Nucleated RBCs/100 WBC Differential Comment Diff Path Review Hypersegmented Neuts Atypical Lymphocytes Reactive Lymphocytes Smudge Cells Toxic Granulation Toxic Vacuolation Dohle Bodies José Manuel Rods Platelet Estimate Plt Morphology Comment RBC Morphology Polychromasia Hypochromasia Poikilocytosis Basophilic Stippling Anisocytosis Microcytosis Macrocytosis Spherocytes Sickle Cells Target Cells Tear Drop Cells Ovalocytes Stomatocytes [place] Bodies Mitzi Cells Bite Cells Crenated Cell Acanthocytes (Spur) Rouleaux Schistocytes PT INR APTT Activated Clotting Time Specimen Type Sample Site pH Bicarbonate Actual Total CO2 Base Excess O2 Saturation O2 % ABG pCO2 ABG pO2 Respiration Rate O2 Delivery Device Vent Mode Tidal Volume POC PEEP Sodium 139 Potassium 4.1 Chloride 108 H Carbon Dioxide 24.0 Anion Gap 7 BUN 21 H Creatinine 0.90 Estim Creat Clear Calc 36.37 Est GFR (MDRD) Af Amer 77 Est GFR (MDRD) Non-Af 63 BUN/Creatinine Ratio 23.3 H Glucose 130 H Lactic Acid 2.4 H* Calcium 8.0 L Total Bilirubin AST ALT Alkaline Phosphatase Total Creatine Kinase Troponin I 12.800 H* 11.100 H* Total Protein Albumin Globulin Albumin/Globulin Ratio Triglycerides COVID-19 (EMMETT) 05/27/20 05/27/20 05/27/20 07:57 12:10 12:45 WBC Corrected WBC RBC Hgb 9.9 L Hct 29.4 L MCV MCH MCHC RDW Std Deviation RDW Coeff of Rochelle Plt Count MPV Immature Gran % (Auto) Neut % (Auto) Lymph % (Auto) [place] % (Auto) Eos % (Auto) Baso % (Auto) Absolute Neuts (auto) Absolute Lymphs (auto) Total Counted Neutrophils % (Manual) Band Neutrophils % Lymphocytes % (Manual) Monocytes % (Manual) Eosinophils % (Manual) Basophils % (Manual) Metamyelocytes % Myelocytes % Promyelocytes % Blast Cells % Plasma Cell % (Manual) Other Cells % Nucleated RBC % Nucleated RBCs/100 WBC Differential Comment Diff Path Review Hypersegmented Neuts Atypical Lymphocytes Reactive Lymphocytes Smudge Cells Toxic Granulation Toxic Vacuolation Dohle Bodies José Manuel Rods Platelet Estimate Plt Morphology Comment RBC Morphology Polychromasia Hypochromasia Poikilocytosis Basophilic Stippling Anisocytosis Microcytosis Macrocytosis Spherocytes Sickle Cells Target Cells Tear Drop Cells Ovalocytes Stomatocytes [place] Bodies Mitzi Cells Bite Cells Crenated Cell Acanthocytes (Spur) Rouleaux Schistocytes PT INR APTT Activated Clotting Time Specimen Type ART Sample Site Art Line pH 7.46 H Bicarbonate Actual 21.6 L Total CO2 23 Base Excess -2 O2 Saturation 98 O2 % 30 ABG pCO2 30.2 L ABG pO2 96 Respiration Rate 16 O2 Delivery Device ET Tube Vent Mode AC Tidal Volume 400 POC PEEP 5 Sodium Potassium Chloride Carbon Dioxide Anion Gap BUN Creatinine Estim Creat Clear Calc Est GFR (MDRD) Af Amer Est GFR (MDRD) Non-Af BUN/Creatinine Ratio Glucose Lactic Acid Calcium Total Bilirubin AST ALT Alkaline Phosphatase Total Creatine Kinase Troponin I Total Protein Albumin Globulin Albumin/Globulin Ratio Triglycerides COVID-19 (EMMETT) Not Detected 05/27/20 05/28/20 05/28/20 18:50 01:25 05:20 WBC 12.5 H Corrected WBC RBC 2.69 L Hgb 9.3 L 9.9 L 9.2 L Hct 28.0 L 30.0 L 28.0 L MCV 104.1 H MCH 34.2 H MCHC 32.9 D RDW Std Deviation 46.5 H RDW Coeff of Rochelle 12.2 Plt Count 194 MPV 10.0 Immature Gran % (Auto) 0.400 Neut % (Auto) 74.7 H Lymph % (Auto) 11.5 L [place] % (Auto) 12.6 H Eos % (Auto) 0.2 Baso % (Auto) 0.6 Absolute Neuts (auto) 9.3 H Absolute Lymphs (auto) 1.44 Total Counted Neutrophils % (Manual) Band Neutrophils % Lymphocytes % (Manual) Monocytes % (Manual) Eosinophils % (Manual) Basophils % (Manual) Metamyelocytes % Myelocytes % Promyelocytes % Blast Cells % Plasma Cell % (Manual) Other Cells % Nucleated RBC % 0 Nucleated RBCs/100 WBC Differential Comment SCANNED Diff Path Review May foll Hypersegmented Neuts Atypical Lymphocytes Reactive Lymphocytes Smudge Cells Toxic Granulation Toxic Vacuolation Dohle Bodies José Manuel Rods Platelet Estimate Plt Morphology Comment RBC Morphology Polychromasia Hypochromasia Poikilocytosis Basophilic Stippling Anisocytosis Microcytosis Macrocytosis Spherocytes Sickle Cells Target Cells Tear Drop Cells Ovalocytes Stomatocytes [place] Bodies Mitzi Cells Bite Cells Crenated Cell Acanthocytes (Spur) Rouleaux Schistocytes PT INR APTT Activated Clotting Time Specimen Type Sample Site pH Bicarbonate Actual Total CO2 Base Excess O2 Saturation O2 % ABG pCO2 ABG pO2 Respiration Rate O2 Delivery Device Vent Mode Tidal Volume POC PEEP Sodium Potassium Chloride Carbon Dioxide Anion Gap BUN Creatinine Estim Creat Clear Calc Est GFR (MDRD) Af Amer Est GFR (MDRD) Non-Af BUN/Creatinine Ratio Glucose Lactic Acid Calcium Total Bilirubin AST ALT Alkaline Phosphatase Total Creatine Kinase Troponin I Total Protein Albumin Globulin Albumin/Globulin Ratio Triglycerides COVID-19 (EMMETT) 05/28/20 05:20 WBC Corrected WBC RBC Hgb Hct MCV MCH MCHC RDW Std Deviation RDW Coeff of Rochelle Plt Count MPV Immature Gran % (Auto) Neut % (Auto) Lymph % (Auto) [place] % (Auto) Eos % (Auto) Baso % (Auto) Absolute Neuts (auto) Absolute Lymphs (auto) Total Counted Neutrophils % (Manual) Band Neutrophils % Lymphocytes % (Manual) Monocytes % (Manual) Eosinophils % (Manual) Basophils % (Manual) Metamyelocytes % Myelocytes % Promyelocytes % Blast Cells % Plasma Cell % (Manual) Other Cells % Nucleated RBC % Nucleated RBCs/100 WBC Differential Comment Diff Path Review Hypersegmented Neuts Atypical Lymphocytes Reactive Lymphocytes Smudge Cells Toxic Granulation Toxic Vacuolation Dohle Bodies José Manuel Rods Platelet Estimate Plt Morphology Comment RBC Morphology Polychromasia Hypochromasia Poikilocytosis Basophilic Stippling Anisocytosis Microcytosis Macrocytosis Spherocytes Sickle Cells Target Cells Tear Drop Cells Ovalocytes Stomatocytes [place] Bodies [place] Cells Bite Cells Crenated Cell Acanthocytes (Spur) Rouleaux Schistocytes PT INR APTT Activated Clotting Time Specimen Type Sample Site pH Bicarbonate Actual Total CO2 Base Excess O2 Saturation O2 % ABG pCO2 ABG pO2 Respiration Rate O2 Delivery Device Vent Mode Tidal Volume POC PEEP Sodium 141 Potassium 3.5 Chloride 111 H Carbon Dioxide 24.0 Anion Gap 6 BUN 16 Creatinine 0.62 Estim Creat Clear Calc 32.73 Est GFR (MDRD) Af Amer 119 Est GFR (MDRD) Non-Af 98 BUN/Creatinine Ratio 25.8 H Glucose 135 H Lactic Acid Calcium 7.9 L Total Bilirubin 0.70 AST 44 H ALT 25 Alkaline Phosphatase 63 Total Creatine Kinase Troponin I Total Protein 5.2 L Albumin 2.4 L Globulin 2.8 Albumin/Globulin Ratio 0.9 Triglycerides COVID-19 (EMMETT) Microbiology 05/27/20 02:00 Gastric Fluid/Contents Gastric Occult Blood - Final Occult Blood Positive Clinical Impression(s) from Imaging Studies Chest X-Ray 05/27/20 19:18 IMPRESSION: Adequate position of endotracheal tube. Diffuse nondescript airspace disease, unlikely focal pneumonia. at [id number] Reported and signed by: Jose Maya MD Electronically Signed: Jose Maya MD at 23:58 EST Tel , Service support , Medical Necessity - Tobacco Use Smoking Status: Never smoker Assessment/Plan All Active Problems (Last Updated 05/27/20 @ 16:36 by Anne Enrique) Cardiogenic shock (Acute 05/26/20) STEMI (ST elevation myocardial infarction) (Acute 05/26/20) Acute respiratory failure with hypoxia (Acute 05/26/20) RECOMMENDATIONS: 1. Spontaneous breathing and awakening trials per protocol 2. Wean pressors as tolerated 3. Defer to surgery on GI intervention. Continue PPI 4. Transfuse for hemoglobin less than 8 5. Discontinue Lopressor IMPRESSIONS: 1. Cardiogenic versus septic shock secondary to ST elevation IL of the left main Patient currently on Levophed therapy. Patient responded well to IABP, but this was discontinued yesterday. Patient does have a fever at this time of unclear etiology. Patient currently on empiric antibiotics pending culture data. Continue to wean pressors as tolerated 2. Acute hypoxic respiratory failure secondary to flash pulmonary edema Patient appears to be responding well to supportive measures. Oxygenation has significantly improved compared to presentation and improvement in hemodynamics. Patient continues to do well on minimal vent settings. Attempt to improve hemodynamics prior to spontaneous breathing and awakening trials. 3. Acute blood loss anemia secondary to possible upper GI bleed Patient would require antiplatelet and anticoagulation from a GI standpoint. Patient noted to be guaiac positive from gastric secretions. Surgery has been consulted. EGD was unclear of a potential source outside of blood presence. Stress gastritis would be a consideration. Patient is on PPI. Would transfuse with hemoglobin less than 8 given relatively active bleed and need for antiplatelet therapy 4. Advanced age/hyperlipidemia/hypertension Complicates care, management, recovery and prognosis. Antihypertensive medication should be held secondary to acute condition. Defer statin to cardiology. TIME: 33 minutes of critical care time spent addressing patient's cardiogenic shock, respiratory failure, possible GI bleed, review of all data and collaboration with care team (5:40 AM to 6:40 AM) [id number] Critical care first hour
--- NOTE | 2020-05-28 07:31 | PN_ITS ---
Patient Problems: Active and Suspected Problems (Last Updated 05/27/20 @ 16:36 by Anne Enrique) STEMI (ST elevation myocardial infarction) (Acute 05/26/20) Acute respiratory failure with hypoxia (Acute 05/26/20) Subjective: Patient seen and examined. She remains intubated and sedated. Patient is still febrile. BBC is down to 12.5 today. Remains on Levophed. She had EGD yesterday which showed clotted blood in the gastric fundus. Vitals/I&O's: Vital Signs Temp Pulse Resp BP Pulse Ox 100.2 F H 96 17 121/41 H 98 05/28/20 07:00 05/28/20 07:00 05/28/20 07:00 05/28/20 07:15 05/28/20 07:00 Oxygen Flow Rate (L/min) 2 Oxygen Delivery Method Mechanical Ventilator Weight: 151 lb 10.848 oz Body Mass Index (BMI) 28.3 Intake and Output for Last 24 Hours 05/26/20 05/27/20 05/28/20 23:59 23:59 23:59 Intake Total 2948.06 / 3018.88 2369.32 / 2369.32 Output Total 1515 / 1515 335 / 335 Balance 1433.06 / 1503.88 2034.32 / 2034.32 General: - - intubated, sedated, RASS score is -4 HEENT: Atraumatic, PERRLA, EOMI, Normocephalic Oral: Dry Mucosa Neck: Supple, No JVD, Negative Carotid Bruits Lungs: - - diminished breath sounds bibasally, no wheezes or crackles. intubated Cardiovascular: Regular rate, Regular Rhythm, Normal S1, Normal S2, No murmurs Abdomen: Bowel Sounds Present, Soft, Non Tender Extremities: No clubbing, No cyanosis, No edema, Capillary Refill Less than 3 Seconds Skin: No rashes, No breakdown Musculoskeletal: No Tenderness to Palpation of Joints or Extremities Lymphatic: No Cervical, Supraclavicular, or Inguinal Adenopathy Neurological: - - intubated, heavily sedated. RASS score is -4 Microbiology Past 72 Hours 05/27/20 02:00 Gastric Fluid/Contents Gastric Occult Blood - Final Occult Blood Positive Laboratory Results 05/27/20 07:57: Specimen Type ART, Sample Site Art Line, pH 7.46 H, Bicarbonate Actual 21.6 L, Total CO2 23, Base Excess -2, O2 Saturation 98, O2 % 30, ABG pCO2 30.2 L, ABG pO2 96, Respiration Rate 16, O2 Delivery Device ET Tube, Vent Mode AC, Tidal Volume 400, POC PEEP 5 05/27/20 12:10: COVID-19 ([facility]MET[facility]) Not Detected 05/27/20 12:45: Hgb 9.9 L, Hct 29.4 L 05/27/20 18:50: Hgb 9.3 L, Hct 28.0 L 05/28/20 01:25: Hgb 9.9 L, Hct 30.0 L 05/28/20 05:20: WBC 12.5 H, RBC 2.69 L, Hgb 9.2 L, Hct 28.0 L, MCV 104.1 H, MCH 34.2 H, MCHC 32.9 D, RDW Std Deviation 46.5 H, RDW Coeff of Rochelle 12.2, Plt Count 194, MPV 10.0, Immature Gran % (Auto) 0.400, Neut % (Auto) 74.7 H, Lymph % (Auto) 11.5 L, [place] % (Auto) 12.6 H, Eos % (Auto) 0.2, Baso % (Auto) 0.6, Absolute Neuts (auto) 9.3 H, Absolute Lymphs (auto) 1.44, Nucleated RBC % 0, Differential Comment SCANNED, Diff Path Review October05/28/20 05:20: Sodium 141, Potassium 3.5, Chloride 111 H, Carbon Dioxide 24.0, Anion Gap 6, BUN 16, Creatinine 0.62, Estim Creat Clear Calc 32.73, Est GFR (MDRD) Af Amer 119, Est GFR (MDRD) Non-Af 98, BUN/Creatinine Ratio 25.8 H, Glucose 135 H, Calcium 7.9 L, Total Bilirubin 0.70, AST 44 H, ALT 25, Alkaline Phosphatase 63, Total Protein 5.2 L, Albumin 2.4 L, Globulin 2.8, Albumin/Globulin Ratio 0.9 Current Medications Acetaminophen (Acetaminophen 650 Mg/20 Ml Udc) 650 mg GT Q6H PRN PRN PRN Reason: FEVER Last Admin: 05/27/20 15:40 Dose: 650 mg Documented by: Aspirin (Aspirin 81 Mg Tab.Chew) 81 mg GT DAILYCM [facility] Last Admin: 05/27/20 12:37 Dose: 81 mg Documented by: Atorvastatin Calcium (Atorvastatin Calcium 80 Mg Tablet) 80 mg GT QHS [facility] Last Admin: 05/27/20 21:54 Dose: 80 mg Documented by: Calcium/Vitamin D (Calcium Carb/Vitamin D 1 Tablet Tablet) 1 tablet GT DAILY [facility] Last Admin: 05/27/20 12:37 Dose: 1 tablet Documented by: Chlorhexidine Gluconate (Chlorhexidine 15 Ml) 15 ml PO BID [facility] Last Admin: 05/27/20 21:54 Dose: 15 ml Documented by: Clopidogrel Bisulfate (Clopidogrel Bisulfate 75 Mg Tablet) 75 mg GT DAILY [facility] Last Admin: 05/27/20 12:38 Dose: 75 mg Documented by: Folic Acid (Folic Acid 1 Mg Tablet) 1 mg GT DAILY@0800 [facility] Last Admin: 05/27/20 10:00 Dose: Not Given Documented by: Hydrochlorothiazide (Hydrochlorothiazide 12.5mg) 12.5 mg GT DAILY [facility] Last Admin: 05/27/20 12:07 Dose: Not Given Documented by: Norepinephrine Bitartrate 8 mg (/ Sodium Chloride) 250 mls @ 9.375 mls/hr CONT INF .[id number] [facility]; Protocol Last Titration: 05/28/20 07:15 Dose: 12.5 mcg/min, 23.4 mls/hr Documented by: Propofol (Diprivan) 1,000 mg in 100 mls @ 4.128 mls/hr CONT INF .Q12H [facility]; Protocol Last Titration: 05/28/20 06:00 Dose: 10 mcg/kg/min, 4 mls/hr Documented by: Fentanyl Citrate 1,000 mcg/ (Sodium Chloride) 100 mls @ 2.5 mls/hr CONT INF .Q40H [facility]; Protocol Last Titration: 05/28/20 06:00 Dose: 75 mcg/hr, 7.5 mls/hr Documented by: Sodium Chloride () 250 mls @ 15 mls/hr IV .[id number] PRN PRN Reason: Saline Flush Pantoprazole Sodium 80 mg/ (Sodium Chloride) 100 mls @ 10 mls/hr CONT INF Q10H [facility] Last Infusion: 05/28/20 06:00 Dose: 10 mls/hr Documented by: Ceftriaxone Sodium (Rocephin) 1 gm in 50 mls @ 100 mls/hr IV Q24 [facility] Last Infusion: 05/27/20 14:08 Dose: Infused Documented by: Sodium Chloride () 1,000 mls @ 150 mls/hr IV .Q6H40M [facility] Last Admin: 05/28/20 07:21 Dose: 150 mls/hr Documented by: Losartan Potassium (Losartan Potassium 100 Mg Tablet) 100 mg GT DAILY [facility] Last Admin: 05/27/20 12:07 Dose: Not Given Documented by: Multivitamins (Multivitamins,Therapeutic Tablet) 1 tablet GT DAILYCM [facility] Last Admin: 05/27/20 10:00 Dose: Not Given Documented by: [id number] Ethyl Esters ([place]-3 Acid Ethyl Esters 1 Gm Capsule) 1 gm PO BID [facility] Last Admin: 05/27/20 21:57 Dose: Not Given Documented by: Sodium Chloride (0.9% Saline Lock 10 Ml Syringe) 10 - 40 ml IV UD PRN PRN Reason: SALINE FLUSH Last Admin: 05/27/20 13:38 Dose: 40 ml Documented by: STROKE Vital Signs/Narrative: Vital Signs Temp Pulse Resp BP Pulse Ox 05/28/20 07:15 121/41 H 05/28/20 07:00 100.2 F H 96 17 134/45 H 98 05/28/20 06:45 117/41 L 05/28/20 06:37 131/44 H 05/28/20 06:00 100.1 F H 99 18 132/44 H 97 05/28/20 05:00 100.1 F H 97 13 124/43 H 98 05/28/20 04:00 99.9 F H 85 12 127/45 H 96 05/28/20 03:45 124/42 H 05/28/20 03:40 76 12 99 Medical Necessity - Tobacco Use Smoking Status: Never smoker Assessment/Plan All Active Problems (Last Updated 05/27/20 @ 16:36 by Anne Enrique) Cardiogenic shock (Acute 05/26/20) STEMI (ST elevation myocardial infarction) (Acute 05/26/20) Acute respiratory failure with hypoxia (Acute 05/26/20) #STEMI * s/p cardiac cath. * was emergently intubated o/a of respiratory failure * aspirin, brilinta on hold o/a of upper gi bleed * on high intensity statin * has aortic balloon pump in place * cardiology on board * # Cardiogenic shock * currently on levophed and dopamine * cardiology on board. has an intraoaortic balloon pump in place * cardiology on board * # Acute upper GI bleed * started having upper GI bleed after cardiac cath * on IV protonix * general surgery on board; EGD done showed clotted blood in the gastric fundus * aspirin and brilinta on hold. on plavix * * # Hypokalemia: resolved #Acute hypoxic respiratory failure due to flash pulmonary edema * still intubated and sedated. Pulmonology on board. * on breathing treatment with bronchodilators * # Acute blood loss anemia due to UGI bleed # Severe sepsis * Patient has fever and leukocytosis. Lactic acid also elevated to 2.4. * Blood cultures and urine cultures pending. * on IV ceftriaxone * #Hypertension: * on losartan and metoprolol as well as hydrochlorothiazide. * These are currently on hold due to patient being on vasopressors. * DVT prophylaxis: on hold o/a of GI bleed GI prophylaxis; on PPI Inpatient E&M: [id number] [facility] Hosp L3
--- NOTE | 2020-05-28 09:10 | PCM.PN.SRG ---
Patient Problems: Active and Suspected Problems (Last Updated 05/27/20 @ 16:36 by Anne Enrique) STEMI (ST elevation myocardial infarction) (Acute 05/26/20) Acute respiratory failure with hypoxia (Acute 05/26/20) Subjective: Patient still on the vent, hemoglobin stable - Physical Exam Vitals/I&O's: Vital Signs Temp Pulse Resp BP Pulse Ox 100.3 F H 106 H 12 134/45 H 99 05/28/20 07:58 05/28/20 08:00 05/28/20 07:58 05/28/20 08:00 05/28/20 07:58 Oxygen Flow Rate (L/min) 2 Oxygen Delivery Method Mechanical Ventilator Weight: 151 lb 10.848 oz Body Mass Index (BMI) 28.3 Intake and Output for Last 24 Hours 05/26/20 05/27/20 05/28/20 23:59 23:59 23:59 Intake Total 2948.06 / 3018.88 2409.34 / 2409.34 Output Total 1515 / 1515 435 / 435 Balance 1433.06 / 1503.88 1974.34 / 1974.34 General: - - Intubated and sedated Microbiology Past 72 Hours 05/27/20 08:00 Urine Catheter - Owens Urine Culture - Preliminary Culture exhibits no growth. 05/27/20 02:00 Gastric Fluid/Contents Gastric Occult Blood - Final Occult Blood Positive Laboratory Results 05/27/20 12:10: COVID-19 ([facility]MET[facility]) Not Detected 05/27/20 12:45: Hgb 9.9 L, Hct 29.4 L 05/27/20 18:50: Hgb 9.3 L, Hct 28.0 L 05/28/20 01:25: Hgb 9.9 L, Hct 30.0 L 05/28/20 05:20: WBC 12.5 H, RBC 2.69 L, Hgb 9.2 L, Hct 28.0 L, MCV 104.1 H, MCH 34.2 H, MCHC 32.9 D, RDW Std Deviation 46.5 H, RDW Coeff of Rochelle 12.2, Plt Count 194, MPV 10.0, Immature Gran % (Auto) 0.400, Neut % (Auto) 74.7 H, Lymph % (Auto) 11.5 L, [place] % (Auto) 12.6 H, Eos % (Auto) 0.2, Baso % (Auto) 0.6, Absolute Neuts (auto) 9.3 H, Absolute Lymphs (auto) 1.44, Nucleated RBC % 0, Differential Comment SCANNED, Diff Path Review October05/28/20 05:20: Sodium 141, Potassium 3.5, Chloride 111 H, Carbon Dioxide 24.0, Anion Gap 6, BUN 16, Creatinine 0.62, Estim Creat Clear Calc 32.73, Est GFR (MDRD) Af Amer 119, Est GFR (MDRD) Non-Af 98, BUN/Creatinine Ratio 25.8 H, Glucose 135 H, Calcium 7.9 L, Total Bilirubin 0.70, AST 44 H, ALT 25, Alkaline Phosphatase 63, Total Protein 5.2 L, Albumin 2.4 L, Globulin 2.8, Albumin/Globulin Ratio 0.9 Current Medications Acetaminophen (Acetaminophen 650 Mg/20 Ml Udc) 650 mg GT Q6H PRN PRN PRN Reason: FEVER Last Admin: 05/27/20 15:40 Dose: 650 mg Documented by: Aspirin (Aspirin 81 Mg Tab.Chew) [facility] Last Admin: 05/27/20 12:37 Dose: 81 mg Documented by: Atorvastatin Calcium (Atorvastatin Calcium 80 Mg Tablet) 80 mg GT QHS [facility] Last Admin: 05/27/20 21:54 Dose: 80 mg Documented by: Calcium/Vitamin D (Calcium Carb/Vitamin D 1 Tablet Tablet) 1 tablet GT DAILY [facility] Last Admin: 05/27/20 12:37 Dose: 1 tablet Documented by: Chlorhexidine Gluconate (Chlorhexidine 15 Ml) 15 ml PO BID [facility] Last Admin: 05/27/20 21:54 Dose: 15 ml Documented by: Clopidogrel Bisulfate (Clopidogrel Bisulfate 75 Mg Tablet) 75 mg GT DAILY [facility] Last Admin: 05/27/20 12:38 Dose: 75 mg Documented by: Folic Acid (Folic Acid 1 Mg Tablet) 1 mg GT DAILY@0800 [facility] Last Admin: 05/27/20 10:00 Dose: Not Given Documented by: Hydrochlorothiazide (Hydrochlorothiazide 12.5mg) 12.5 mg GT DAILY [facility] Last Admin: 05/27/20 12:07 Dose: Not Given Documented by: Norepinephrine Bitartrate 8 mg (/ Sodium Chloride) 250 mls @ 9.375 mls/hr CONT INF .[id number] [facility]; Protocol Last Titration: 05/28/20 07:30 Dose: 12.5 mcg/min, 23.4 mls/hr Documented by: Propofol (Diprivan) 1,000 mg in 100 mls @ 4.128 mls/hr CONT INF .Q12H [facility]; Protocol Last Titration: 05/28/20 07:00 Dose: 10 mcg/kg/min, 4.1 mls/hr Documented by: Fentanyl Citrate 1,000 mcg/ (Sodium Chloride) 100 mls @ 2.5 mls/hr CONT INF .Q40H [facility]; Protocol Last Titration: 05/28/20 07:00 Dose: 75 mcg/hr, 7.5 mls/hr Documented by: Sodium Chloride () 250 mls @ 15 mls/hr IV .[id number] PRN PRN Reason: Saline Flush Pantoprazole Sodium 80 mg/ (Sodium Chloride) 100 mls @ 10 mls/hr CONT INF Q10H [facility] Last Admin: 05/28/20 08:30 Dose: 10 mls/hr Documented by: Ceftriaxone Sodium (Rocephin) 1 gm in 50 mls @ 100 mls/hr IV Q24 [facility] Last Infusion: 05/27/20 14:08 Dose: Infused Documented by: Sodium Chloride () 1,000 mls @ 150 mls/hr IV .Q6H40M [facility] Last Admin: 05/28/20 07:21 Dose: 150 mls/hr Documented by: Losartan Potassium (Losartan Potassium 100 Mg Tablet) 100 mg GT DAILY [facility] Last Admin: 05/27/20 12:07 Dose: Not Given Documented by: Multivitamins (Multivitamins,Therapeutic Tablet) 1 tablet [facility] Last Admin: 05/27/20 10:00 Dose: Not Given Documented by: [id number] Ethyl Esters ([place]-3 Acid Ethyl Esters 1 Gm Capsule) 1 gm PO BID [facility] Last Admin: 05/27/20 21:57 Dose: Not Given Documented by: Sodium Chloride (0.9% Saline Lock 10 Ml Syringe) 10 - 40 ml IV UD PRN PRN Reason: SALINE FLUSH Last Admin: 05/27/20 13:38 Dose: 40 ml Documented by: Medical Necessity - Tobacco Use Smoking Status: Never smoker Assessment/Plan All Active Problems (Last Updated 05/27/20 @ 16:36 by Anne Enrique) Cardiogenic shock (Acute 05/26/20) STEMI (ST elevation myocardial infarction) (Acute 05/26/20) Acute respiratory failure with hypoxia (Acute 05/26/20) 84-year-old female status post heart cath currently on aortic balloon pump status post cardiac stents on aspirin Plavix, bright red blood from NG Patient's EGD showed clot in the fundus and some irritation to the back of the throat that is not well visualized, no active bleeding was seen. Patient's hemoglobin is stable on the aspirin Plavix. We will continue to monitor. Nedra Medeiros M.D. Pager: [phone] [facility] [address] [place] [address], Outpatient [facility], [address] [place] [address] Office: [phone] Inpatient E&M: [id number] Subs Hosp L2
[2020-05-28] MEDS: Clopidogrel Bisulfate 75 MG Tablet GT (09:57)
[2020-05-28] MEDS: Multivitamins,Therapeutic Tablet 1 TABLET GT (09:58)
[2020-05-28] MEDS: Aspirin 81 MG TAB.CHEW GT (09:58)
[2020-05-28] MEDS: Chlorhexidine 15 ML PO ×2 (09:58→22:23)
[2020-05-28] MEDS: Calcium Carb/Vitamin D 1 TABLET Tablet GT (09:58)
[2020-05-28] MEDS: Ceftriaxone 1 GM/50 ML BAG IV (10:00)
--- NOTE | 2020-05-28 11:18 | ED.RN ---
AT 2110 DR. WEBBER AT BEDSIDE. PHYSICIAN OFFICE SPECIALIST READY. PER DR. WEBBER PT IS NOT A STEMI, DO NOT MOVE HER FROM ED UNTIL I EVALUATE HER. PT REMAINS IN ED. PT WITH INCREASED WORK OF BREATHING, AND DECREASED SPO2 DURING EVALUATION BY [employer] DR[employer] CAPTAIN. DR. BROWN RETURNS TO BEDSIDE.
[2020-05-28] MEDS: Acetaminophen 650 MG/20 ML UDC GT (11:30)
--- NOTE | 2020-05-28 12:33 | PN.CARD_ITS ---
Subjectve: Patient still intubated. Intra-aortic balloon pump was removed yesterday. Right pedal pulse normal. Groin site stable. Non-STEMI on the treated with PCI of the left main bifurcation lesion and stenting of the mid left circumflex. There was evidence of cardiogenic shock with pulmonary edema in the emergency room. Patient was intubated in the emergency room before PCI. The lesion at the left main bifurcation is considered to be thrombosed or vegetation. Post PCI IVUS showed well deployed stent of the left main and proximal left anterior descending. Postop echocardiogram with or without balloon pump showed ejection fraction of 55%. Patient is being treated for septic shock on IV Levophed. Patient is awake Objective: Vital Signs Temp Pulse Resp BP Pulse Ox 101.2 F H 104 H 12 108/50 L 98 05/28/20 10:00 05/28/20 11:00 05/28/20 11:00 05/28/20 11:00 05/28/20 11:00 Oxygen Flow Rate (L/min) 30 Oxygen Delivery Method Mechanical Ventilator Weight: 151 lb 10.848 oz Body Mass Index (BMI) 28.3 Intake and Output for Last 24 Hours 05/26/20 05/27/20 05/28/20 23:59 23:59 23:59 Intake Total 2948.06 / 3018.88 3126.69 / 3126.69 Output Total 1515 / 1515 595 / 595 Balance 1433.06 / 1503.88 2531.69 / 2531.69 General: - - Intubated Neck: Supple Lungs: Clear to auscultation, - - Intubated Cardiovascular: Regular Rhythm - Sinus tachycardia, No Murmurs Vascular: Normal Dorsalis Pedal Pulse Abdomen: Bowel Sounds Present, Soft, Non Tender, No HSM, No Organomegaly Neurological: - - Intubated and sedated 05/27/20 12:45: Hgb 9.9 L, Hct 29.4 L 05/27/20 18:50: Hgb 9.3 L, Hct 28.0 L 05/28/20 01:25: Hgb 9.9 L, Hct 30.0 L 05/28/20 05:20: WBC 12.5 H, RBC 2.69 L, Hgb 9.2 L, Hct 28.0 L, MCV 104.1 H, MCH 34.2 H, MCHC 32.9 D, Plt Count 194, MPV 10.0, Immature Gran % (Auto) 0.400, Neut % (Auto) 74.7 H, Lymph % (Auto) 11.5 L, [place] % (Auto) 12.6 H, Eos % (Auto) 0.2, Baso % (Auto) 0.6, Absolute Neuts (auto) 9.3 H, Nucleated RBC % 0 05/28/20 05:20: Sodium 141, Potassium 3.5, Chloride 111 H, Carbon Dioxide 24.0, Anion Gap 6, BUN 16, Creatinine 0.62, Est GFR (MDRD) Af Amer 119, Est GFR (MDRD) Non-Af 98, BUN/Creatinine Ratio 25.8 H, Glucose 135 H, Calcium 7.9 L, Total Bilirubin 0.70 Rhythm: EKG: ECHO: Stress Test: Cardiac Cath: PCI: CT Surgery: Holter monitor: EPS: PPM: CXR: Chest CT Scan: Medical Necessity - Tobacco Use Smoking Status: Never smoker Assessment/Plan #1 severe ischemia on EKG most likely non-STEMI treated on the with angioplasty of the left main distal bifurcation lesion, as well patient was also treated with stenting of the mid left circumflex. Postop ejection fraction was at least 50%. The haziness at the distal left main is considered to be either vegetations or thrombus. This disappeared after the PCI. Post PCI, pulmonary wedge pressure and left ventricular end-diastolic pressure were 8. Balloon pump has been removed. Patient is still intubated on IV Levophed. Blood pressure is reasonable. Patient has had sinus tachycardia most likely due to septic shock. Urine output is stable, renal status is stable Plan: Left femoral arterial line will be removed today. #2 GI bleed. Endoscopy done yesterday showed no active bleeding. Hemoglobin is stable today. Patient has been on IV Protonix drip #3 increased lactic acid and increased white count, blood culture is pending. Patient is being treated with IV Rocephin
[2020-05-28] MEDS: Atorvastatin Calcium 80 MG Tablet GT (22:18)
[2020-05-29] VITALS (41 sets, daily range): BP systolic 114–172; BP diastolic 42–96; PULSE 64–137; RESP 12–30; TEMP 37.7–38.4; O2SAT 89–100
[2020-05-29] MEDS: Propofol 10MG/Ml 1,000 MG/100 ML Bottle 4.1 MG CONT INF (01:55)
[2020-05-29 04:44] LABS: Absolute Lymphocyte Count 0.66 X10^3/uL (0.83-4.51); Absolute Neutrophil Count 6.4 X10^3/uL (2.0-7.7); Basophil# 0.04 X10^3/uL; Basophil% 0.5 % (0-1); Eosinophil# 0.07 X10^3/uL; Eosinophils% 0.9 % (0-5); Hematocrit 23.7 % (37-47); Hemoglobin 7.8 g/dL (12.0-15.0); Lymphocyte # 0.66 X10^3/ul (4.0); Lymphocyte % 8.2 % (19-41); Mean Corp Hgb Conc 32.9 g/dL (32-36); Mean Corpuscular Hgb 33.9 pg (27.0-32.0); Mean Platelet Vol. 9.5 fl (6.2-12.0); Monocyte# 0.84 X10^3/uL; Monocyte% 10.5 % (0-10); NRBC Flagged by Analyzer 0 % (0-5); Neutrophil % 79.7 % (47-70); Platelet Count 150 K/mm3 (150-450); RBC Distribution Width CV 12.3 % (11.6-14.6)
[2020-05-29] MEDS: Acetaminophen 650 MG/20 ML UDC GT (04:50)
[2020-05-29 04:59] LABS: Anion Gap 6 (5-15); BUN 8 mg/dL (7-18); BUN/Creat Ratio 20.6 RATIO (10-20); Calcium,Total 8.1 mg/dL (8.5-10.1); Chloride 113 mmol/L (98-107); Creatinine, Serum 0.39 mg/dL (0.55-1.02); EST Glomerular Filtration Rate 167 mL/min (>60); Est Glom Filt Rate - Afr Amer 203 mL/min (>60); Estimated Creatinine Clearance 32.73 ml/min; Glucose 110 mg/dL (74-106); Potassium 3.4 mmol/L (3.5-5.1); Sodium Level 142 mmol/L (136-145)
[2020-05-29] MEDS: 0.9% Normal Saline 1,000 ML 150 ML IV (05:43)
--- NOTE | 2020-05-29 05:55 | RAD_ITS ---
STUDY: X-RAY CHEST REASON FOR EXAM: Female, 84 years old. Dyspnea TECHNIQUE: Single AP portable view of the chest. COMPARISON: Comparison is made with prior study dated 05/28/2020 at 5:58 AM. FINDINGS: An endotracheal tube is in situ. The tip is at 1 cm proximal to the elham. This should be pulled back approximately 1.5 cm. A nasogastric tube is seen with the tip in the body of the stomach. A left-sided PICC line catheter has been placed with the tip at the junction of the superior vena cava and right atrium. EKG electrodes are seen. Blunting of both costophrenic angles with mild increased markings at the lung bases slightly more prominent on the left side suggestive of atelectasis. Normal size heart. Normal mediastinum and shantell. Normal visualized pulmonary arteries. There is atherosclerotic calcification of the aortic arch with tortuosity. There are diffuse degenerative changes of the visualized thoracic spine. Normal visualized ribs, clavicles, and shoulders. There is no demonstrated abnormality of the visualized soft tissue structures of the upper abdomen. RAD/Chest 1 View (Portable) IMPRESSION: Blunting of both costophrenic angles with mild increased markings at the lung bases suggestive of bibasilar atelectasis. The tip of the endotracheal tube is just proximal to the elham. It should be pulled back approximately 1.5 cm. Electronically Signed: Zan Campos, at 9:42 EST , Service support ,
[2020-05-29 06:11] LABS: Allen Test Positive; Base Excess -4 mmol/L (-2 to +2); Bicarbonate 20.9 mmol/L (22-26); Blood Gas Specimen Type ART; FI02 30; Mode CPAP/PS; O2 Delivery Device Adult Vent; PEEP 5; PO2 51 mmHG (75-100); PS 5; SITE L Radial; SO2 85 % (95-99); Total Carbon Dioxide 22 mmol/L; pCO2 35.4 mmHg (35-45); pH 7.38 (7.35-7.45)
--- NOTE | 2020-05-29 07:09 | PCM.PN.INT ---
Subjective: Patient did okay overnight. No fevers have been reported and patient has remained hemodynamically stable. Patient did qualify for spontaneous breathing trial this morning, but has had sinus tachycardia throughout the trial. This was not associated with tachypnea or hemodynamic instability, so it was continued for an hour. ABG looked good, so patient was extubated under my direct supervision. Patient is reporting hoarseness with no dyspnea. Patient does complain of a sore throat. General: Alert, Cooperative, - - Mild conversational dyspnea. HEENT: Atraumatic, PERRLA, EOMI, Normocephalic, - - Slight scleral injection without icterus Oral: Moist Mucosa, No Gingival or Mucosal Lesions/ Ulcerations Neck: Supple, No JVD, No Nodes, Trachea Midline Lungs: No rhonchi, No wheeze, Diminished, Rales - Right base Cardiovascular: Normal S1, Normal S2, No murmurs, No rub noted, No Gallop, Tachycardic, - - Appears to be sinus tachycardia on telemetry Abdomen: Bowel Sounds Present, Soft, Non Tender, Non-Distended Extremities: No clubbing, No cyanosis, Edema, - - No hematoma noted at the site of previous lines Skin: No rashes, No breakdown Musculoskeletal: No Tenderness to Palpation of Joints or Extremities Lymphatic: No Cervical, Supraclavicular, or Inguinal Adenopathy Neurological: Cranial nerves II-XII grossly intact, Neuro grossly intact, Motor Exam 5/5 strength throughout Psych/Mental Status: Appropriate, Flat Affect Vital Signs Temp Pulse Resp BP Pulse Ox 38.1 C H 131 H 16 123/49 H 95 05/29/20 02:45 05/29/20 04:40 05/29/20 04:40 05/29/20 02:45 05/29/20 04:40 Oxygen Flow Rate (L/min) 30 Oxygen Delivery Method Mechanical Ventilator Weight: 72.8 kg Body Mass Index (BMI) 28.3 Intake and Output for Last 24 Hours 05/27/20 05/28/20 05/29/20 23:59 23:59 23:59 Intake Total 2948.06 / 3018.88 5185.67 / 5208.84 1117.60 / 1117.60 Output Total 1515 / 1515 1265 / 1265 570 / 570 Balance 1433.06 / 1503.88 3920.67 / 3943.84 547.60 / 547.60 Labs (Last 48 Hours) 05/27/20 05/27/20 05/27/20 06:15 06:15 07:57 WBC RBC Hgb Hct MCV MCH MCHC RDW Std Deviation RDW Coeff of Rochelle Plt Count MPV Immature Gran % (Auto) Neut % (Auto) Lymph % (Auto) Sutter % (Auto) Eos % (Auto) Baso % (Auto) Absolute Neuts (auto) Absolute Lymphs (auto) Nucleated RBC % Differential Comment Diff Path Review Specimen Type ART Sample Site Art Line pH 7.46 H Bicarbonate Actual 21.6 L Total CO2 23 Base Excess -2 O2 Saturation 98 O2 % 30 ABG pCO2 30.2 L ABG pO2 96 Kikr Test Respiration Rate 16 O2 Delivery Device ET Tube Vent Mode AC Tidal Volume 400 POC PEEP 5 POC Pressure Suppt Sodium Potassium Chloride Carbon Dioxide Anion Gap BUN Creatinine Estim Creat Clear Calc Est GFR (MDRD) Af Amer Est GFR (MDRD) Non-Af BUN/Creatinine Ratio Glucose Lactic Acid 2.4 H* Calcium Total Bilirubin AST ALT Alkaline Phosphatase Troponin I 11.100 H* Total Protein Albumin Globulin Albumin/Globulin Ratio COVID-19 (EMMETT) 05/27/20 05/27/20 05/27/20 12:10 12:45 18:50 WBC RBC Hgb 9.9 L 9.3 L Hct 29.4 L 28.0 L MCV MCH MCHC RDW Std Deviation RDW Coeff of Rochelle Plt Count MPV Immature Gran % (Auto) Neut % (Auto) Lymph % (Auto) Sutter % (Auto) Eos % (Auto) Baso % (Auto) Absolute Neuts (auto) Absolute Lymphs (auto) Nucleated RBC % Differential Comment Diff Path Review Specimen Type Sample Site pH Bicarbonate Actual Total CO2 Base Excess O2 Saturation O2 % ABG pCO2 ABG pO2 Kirk Test Respiration Rate O2 Delivery Device Vent Mode Tidal Volume POC PEEP POC Pressure Suppt Sodium Potassium Chloride Carbon Dioxide Anion Gap BUN Creatinine Estim Creat Clear Calc Est GFR (MDRD) Af Amer Est GFR (MDRD) Non-Af BUN/Creatinine Ratio Glucose Lactic Acid Calcium Total Bilirubin AST ALT Alkaline Phosphatase Troponin I Total Protein Albumin Globulin Albumin/Globulin Ratio COVID-19 (EMMETT) Not Detected 05/28/20 05/28/20 05/28/20 01:25 05:20 05:20 WBC 12.5 H RBC 2.69 L Hgb 9.9 L 9.2 L Hct 30.0 L 28.0 L MCV 104.1 H MCH 34.2 H MCHC 32.9 D RDW Std Deviation 46.5 H RDW Coeff of Rochelle 12.2 Plt Count 194 MPV 10.0 Immature Gran % (Auto) 0.400 Neut % (Auto) 74.7 H Lymph % (Auto) 11.5 L Sutter % (Auto) 12.6 H Eos % (Auto) 0.2 Baso % (Auto) 0.6 Absolute Neuts (auto) 9.3 H Absolute Lymphs (auto) 1.44 Nucleated RBC % 0 Differential Comment SCANNED Diff Path Review May foll Specimen Type Sample Site pH Bicarbonate Actual Total CO2 Base Excess O2 Saturation O2 % ABG pCO2 ABG pO2 Kirk Test Respiration Rate O2 Delivery Device Vent Mode Tidal Volume POC PEEP POC Pressure Suppt Sodium 141 Potassium 3.5 Chloride 111 H Carbon Dioxide 24.0 Anion Gap 6 BUN 16 Creatinine 0.62 Estim Creat Clear Calc 32.73 Est GFR (MDRD) Af Amer 119 Est GFR (MDRD) Non-Af 98 BUN/Creatinine Ratio 25.8 H Glucose 135 H Lactic Acid Calcium 7.9 L Total Bilirubin 0.70 AST 44 H ALT 25 Alkaline Phosphatase 63 Troponin I Total Protein 5.2 L Albumin 2.4 L Globulin 2.8 Albumin/Globulin Ratio 0.9 COVID-19 (EMMETT) 05/29/20 05/29/20 05/29/20 04:30 04:30 06:05 WBC 8.0 RBC 2.30 L Hgb 7.8 L Hct 23.7 L MCV 103.0 H MCH 33.9 H MCHC 32.9 RDW Std Deviation 46.0 H RDW Coeff of Rochelle 12.3 Plt Count 150 MPV 9.5 Immature Gran % (Auto) 0.200 Neut % (Auto) 79.7 H Lymph % (Auto) 8.2 L Sutter % (Auto) 10.5 H Eos % (Auto) 0.9 Baso % (Auto) 0.5 Absolute Neuts (auto) 6.4 Absolute Lymphs (auto) 0.66 L Nucleated RBC % 0 Differential Comment Diff Path Review Specimen Type ART Sample Site L Radial pH 7.38 Bicarbonate Actual 20.9 L Total CO2 22 Base Excess -4 L O2 Saturation 85 L O2 % 30 ABG pCO2 35.4 ABG pO2 51 L Kirk Test Positive Respiration Rate O2 Delivery Device Adult Vent Vent Mode CPAP/PS Tidal Volume POC PEEP 5 POC Pressure Suppt 5 Sodium 142 Potassium 3.4 L Chloride 113 H Carbon Dioxide 23.0 Anion Gap 6 BUN 8 Creatinine 0.39 L Estim Creat Clear Calc 32.73 Est GFR (MDRD) Af Amer 203 Est GFR (MDRD) Non-Af 167 BUN/Creatinine Ratio 20.6 H Glucose 110 H Lactic Acid Calcium 8.1 L Total Bilirubin AST ALT Alkaline Phosphatase Troponin I Total Protein Albumin Globulin Albumin/Globulin Ratio COVID-19 (EMMETT) Microbiology 05/27/20 08:00 Urine Catheter - Owens Urine Culture - Preliminary Culture exhibits no growth. 05/27/20 02:00 Gastric Fluid/Contents Gastric Occult Blood - Final Occult Blood Positive Clinical Impression(s) from Imaging Studies Chest X-Ray 05/28/20 06:00 IMPRESSION: As above Electronically Signed: Clayton Wong DO at 8:31 EST Tel , Service support , Medical Necessity - Tobacco Use Smoking Status: Never smoker Assessment/Plan All Active Problems (Last Updated 05/27/20 @ 16:36 by Anne Enrique) Cardiogenic shock (Acute 05/26/20) STEMI (ST elevation myocardial infarction) (Acute 05/26/20) Acute respiratory failure with hypoxia (Acute 05/26/20) RECOMMENDATIONS: 1. Possibly reinitiate beta-richard 2. Evaluate for diuretics later today 3. Defer to surgery on GI intervention. Continue PPI 4. Transfuse for hemoglobin less than 8 5. Initiation of diet if passes swallow eval IMPRESSIONS: 1. Cardiogenic versus septic shock secondary to ST elevation AR of the left main Patient currently off Levophed therapy. Patient responded well to IABP, but this was discontinued. Patient does have a fever at this time of unclear etiology. Patient currently on empiric antibiotics pending culture data. Given patient is currently off of pressors, will possibly add beta-richard later today 2. Acute hypoxic respiratory failure secondary to flash pulmonary edema Patient appears to be responding well to supportive measures. Oxygenation has significantly improved compared to presentation and improvement in hemodynamics. Patient able to be extubated this morning. Continue to monitor oxygen status. Possibly add diuretics later today pending response to beta-richard. 3. Acute blood loss anemia secondary to possible upper GI bleed Patient would require antiplatelet and anticoagulation from a GI standpoint. Patient noted to be guaiac positive from gastric secretions. Surgery has been consulted. EGD was unclear of a potential source outside of blood presence. Stress gastritis would be a consideration. Patient is on PPI. Would transfuse with hemoglobin less than 8 given relatively active bleed and need for antiplatelet therapy 4. Advanced age/hyperlipidemia/hypertension Complicates care, management, recovery and prognosis. Antihypertensive medication should be held secondary to acute condition. Defer statin to cardiology. TIME: 35 minutes of critical care time spent addressing patient's cardiogenic shock, respiratory failure, possible GI bleed, review of all data and collaboration with care team (6 AM to 7 AM) [id number]: [id number] Critical care first hour
--- NOTE | 2020-05-29 07:56 | PN.CARD_ITS ---
Subjectve: Patient seen and evaluated. Has just been extubated. Doing well other than sinus tachycardia Objective: Vital Signs Temp Pulse Resp BP Pulse Ox 101.0 F H 136 H 16 140/59 H 89 05/29/20 06:00 05/29/20 06:00 05/29/20 06:00 05/29/20 06:00 05/29/20 06:00 Oxygen Flow Rate (L/min) 30 Oxygen Delivery Method Mechanical Ventilator Weight: 160 lb 7.944 oz Body Mass Index (BMI) 28.3 Intake and Output for Last 24 Hours 05/27/20 05/28/20 05/29/20 23:59 23:59 23:59 Intake Total 2948.06 / 3018.88 5185.67 / 5208.84 1178.04 / 1178.04 Output Total 1515 / 1515 1265 / 1265 570 / 570 Balance 1433.06 / 1503.88 3920.67 / 3943.84 608.04 / 608.04 General: Awake, Alert, Oriented x 3 HEENT: PERRL, EOMI, Sclera Non Icteric Neck: Supple, Good ROM, No Lymph Node Enlargement Lungs: Diminished Jhonatan Bases Cardiovascular: Regular Rhythm, Normal S1, Normal S2, No Murmurs, No Rubs, No Gallops Vascular: No Carotid Bruits, Normal Femoral Pulses, Normal Radial Pulses, Normal Dorsalis Pedal Pulse, Normal Posterior Tibial Pulses Abdomen: Bowel Sounds Present, Soft, Non Tender, No HSM, No Organomegaly Extremities: No Cyanosis, No Clubbing, No edema Musculoskeletal: No Erythema Skin: No Rashes Neurological: No Focal Motor or Sensory Deficit Psych/Mental Status: Appropriate 05/29/20 04:30: WBC 8.0, RBC 2.30 L, Hgb 7.8 L, Hct 23.7 L, MCV 103.0 H, MCH 33.9 H, MCHC 32.9, Plt Count 150, MPV 9.5, Immature Gran % (Auto) 0.200, Neut % (Auto) 79.7 H, Lymph % (Auto) 8.2 L, Angelina % (Auto) 10.5 H, Eos % (Auto) 0.9, Baso % (Auto) 0.5, Absolute Neuts (auto) 6.4, Nucleated RBC % 0 05/29/20 04:30: Sodium 142, Potassium 3.4 L, Chloride 113 H, Carbon Dioxide 23.0, Anion Gap 6, BUN 8, Creatinine 0.39 L, Est GFR (MDRD) Af Amer 203, Est GFR (MDRD) Non-Af 167, BUN/Creatinine Ratio 20.6 H, Glucose 110 H, Calcium 8.1 L 05/29/20 06:05: pH 7.38, Bicarbonate Actual 20.9 L, Base Excess -4 L, O2 Saturation 85 L, ABG pCO2 35.4, ABG pO2 51 L, Kirk Test Positive Rhythm: EKG: ECHO: Stress Test: Cardiac Cath: PCI: CT Surgery: Holter monitor: EPS: PPM: CXR: Chest CT Scan: Medical Necessity - Tobacco Use Smoking Status: Never smoker Assessment/Plan 1. Status post acute lateral myocardial infarction * Patient underwent angioplasty and stenting of the left circumflex artery. She had to have an intra-aortic balloon pump placed due to cardiogenic shock which resolved immediately after placement of the stent. Balloon pump was removed with no issues. Groin is noted to be normal. Patient denies any chest pain with minimal shortness of breath at this time. * Plan will be to continue high intensity statin * Will continue aspirin and Brilinta * Will start beta-richard initially with an IV dose of 2.5 of Lopressor at 10 AM this morning if patient tolerates this well we will continue with p.o. beta- richard * Will set up for cardiac rehabilitation * Will recommend IV Lasix 20 mg this morning * Echocardiogram demonstrates preserved ejection fraction. 2. Status post intubation * This is being managed by the spool worker and hospitalist appreciate their input and help * EGD did not demonstrate any significant upper GI bleeding * 3. Severe anemia * In the face of the recent acute myocardial infarction she may benefit from a unit of packed red blood cells with probably 20 mg of IV Lasix in between. We will recommend keeping in the ICU through today at least
[2020-05-29] MEDS: Furosemide 20 MG/2 ML VIAL IV ×2 (08:00→15:38)
--- NOTE | 2020-05-29 10:12 | CASEMGMT ---
SW spoke w/pt at the bedside in regard to prior level of care and anticipated discharge plan. PCP: Ora Martinez Insurance/Prescription Benefit: [employer] Pharmacy: [facility] in [place] LNOK: , three children all out of state LW/POA: None on file Living arrangements/Prior level of function: Pt lives w/ in two story home. Pt, prior to this, was independent with all ADLs including personal care, cooking, cleaning, driving, organizing meds. DME/HHC/SNF: Pt uses no DME, has not had HHC or been to SNF. SW spoke w/pt, pt just extubated today, and having a difficult time speaking. Pt has been independent in the past. SW explained we are available should pt need home health or to go somewhere for rehab. Pt nodded in understanding. Plan: To be determined. SW/CM will continue to follow and make referrals for discharge needs as appropriate. ADAM Lopez
[2020-05-29] MEDS: Ceftriaxone 1 GM/50 ML BAG IV (11:10)
[2020-05-29] MEDS: Metoprolol Tartrate 5 MG/5 ML Vial 2.5 MG IV ×2 (11:10→15:38)
--- NOTE | 2020-05-29 12:15 | PN_ITS ---
Patient Problems: Active and Suspected Problems (Last Updated 05/27/20 @ 16:36 by Anne Enrique) STEMI (ST elevation myocardial infarction) (Acute 05/26/20) Acute respiratory failure with hypoxia (Acute 05/26/20) Subjective: Patient seen and examined. She was extubated this morning and was on oxygen nasal cannula 2 L. She complained of a sore throat and said she wanted water to drink. She denied any shortness of breath, chest pain, palpitations, dizziness, nausea vomiting. Review of systems otherwise negative. She has remained hemodynamically stable. She had a PICC line inserted yesterday. Intra-aortic balloon pump removed. She still does have a fever of 100 Fahrenheit and heart rate is up at 136 today. Vitals/I&O's: Vital Signs Temp Pulse Resp BP Pulse Ox 100.0 F H 136 H 20 H 156/88 H 100 05/29/20 11:00 05/29/20 11:10 05/29/20 11:00 05/29/20 11:10 05/29/20 11:00 Oxygen Flow Rate (L/min) 3 Oxygen Delivery Method Nasal Cannula Weight: 160 lb 7.944 oz Body Mass Index (BMI) 28.3 Intake and Output for Last 24 Hours 05/27/20 05/28/20 05/29/20 23:59 23:59 23:59 Intake Total 2948.06 / 3018.88 5185.67 / 5208.84 1274.50 / 1274.50 Output Total 1515 / 1515 1265 / 1265 2345 / 2345 Balance 1433.06 / 1503.88 3920.67 / 3943.84 -1070.50 / -1070.50 General: Alert, Oriented x3, Cooperative, Lethargic HEENT: Atraumatic, PERRLA, EOMI, Normocephalic Oral: Dry Mucosa Neck: Supple, No JVD, Negative Carotid Bruits Lungs: - - diminished breath sounds bibasally, extubated. On 3L of oxygen. Cardiovascular: Regular rate, Normal S1, Normal S2, No murmurs, Tachycardic Abdomen: Bowel Sounds Present, Soft, Non Tender, Non-Distended, No Hepato- splenomegaly Extremities: No clubbing, No cyanosis, Capillary Refill Less than 3 Seconds, - - generalised 1+ pitting edema Skin: No rashes, No breakdown Musculoskeletal: No Tenderness to Palpation of Joints or Extremities Lymphatic: No Cervical, Supraclavicular, or Inguinal Adenopathy Neurological: Cranial nerves II-XII grossly intact, Neuro grossly intact, Motor Exam 5/5 strength throughout Psych/Mental Status: Normal Affect, Appropriate, Alert and oriented to time, place, person, mood and affect Microbiology Past 72 Hours 05/29/20 04:32 Sputum, Induced/Lukens Gram Stain - Final 05/27/20 08:00 Urine Catheter - Owens Urine Culture - Final Culture exhibits no growth. 05/27/20 02:00 Gastric Fluid/Contents Gastric Occult Blood - Final Occult Blood Positive Laboratory Results 05/29/20 04:30: WBC 8.0, RBC 2.30 L, Hgb 7.8 L, Hct 23.7 L, MCV 103.0 H, MCH 33.9 H, MCHC 32.9, RDW Std Deviation 46.0 H, RDW Coeff of Rochelle 12.3, Plt Count 150, MPV 9.5, Immature Gran % (Auto) 0.200, Neut % (Auto) 79.7 H, Lymph % (Auto) 8.2 L, Cocke % (Auto) 10.5 H, Eos % (Auto) 0.9, Baso % (Auto) 0.5, Absolute Neuts (auto) 6.4, Absolute Lymphs (auto) 0.66 L, Nucleated RBC % 0 05/29/20 04:30: Sodium 142, Potassium 3.4 L, Chloride 113 H, Carbon Dioxide 23.0, Anion Gap 6, BUN 8, Creatinine 0.39 L, Estim Creat Clear Calc 32.73, Est GFR (MDRD) Af Amer 203, Est GFR (MDRD) Non-Af 167, BUN/Creatinine Ratio 20.6 H, Glucose 110 H, Calcium 8.1 L 05/29/20 06:05: Specimen Type ART, Sample Site L Radial, pH 7.38, Bicarbonate Actual 20.9 L, Total CO2 22, Base Excess -4 L, O2 Saturation 85 L, O2 % 30, ABG pCO2 35.4, ABG pO2 51 L, Kirk Test Positive, O2 Delivery Device Adult Vent, Vent Mode CPAP/PS, POC PEEP 5, POC Pressure Suppt 5 Diagnostic Data Chest X-Ray 05/29/20 05:55 IMPRESSION: Blunting of both costophrenic angles with mild increased markings at the lung bases suggestive of bibasilar atelectasis. The tip of the endotracheal tube is just proximal to the elham. It should be pulled back approximately 1.5 cm. Electronically Signed: Zan Campos, at 9:42 EST , Service support , Current Medications Acetaminophen (Acetaminophen 650 Mg/20 Ml Udc) 650 mg GT Q6H PRN PRN PRN Reason: FEVER Last Admin: 05/29/20 04:50 Dose: 650 mg Documented by: Aspirin (Aspirin 81 Mg Tab.Chew) 81 mg PO DAILY@0800 [place] Atorvastatin Calcium (Atorvastatin Calcium 80 Mg Tablet) 80 mg GT QHS [facility] Last Admin: 05/28/20 22:18 Dose: 80 mg Documented by: Calcium/Vitamin D (Calcium Carb/Vitamin D 1 Tablet Tablet) 1 tablet GT DAILY [facility] Last Admin: 05/28/20 09:58 Dose: 1 tablet Documented by: Clopidogrel Bisulfate (Clopidogrel Bisulfate 75 Mg Tablet) 75 mg PO DAILY [place] Sodium Chloride () 250 mls @ 15 mls/hr IV .[id number] PRN PRN Reason: Saline Flush Pantoprazole Sodium 80 mg/ (Sodium Chloride) 100 mls @ 10 mls/hr CONT INF Q10H [facility] Last Infusion: 05/29/20 06:00 Dose: 10 mls/hr Documented by: Ceftriaxone Sodium (Rocephin) 1 gm in 50 mls @ 100 mls/hr IV Q24 [facility] Last Admin: 05/29/20 11:10 Dose: 100 mls/hr Documented by: Multivitamins (Multivitamins,Therapeutic Tablet) 1 tablet GT DAILYCM [facility] Last Admin: 05/28/20 09:58 Dose: 1 tablet Documented by: Sodium Chloride (0.9% Saline Lock 10 Ml Syringe) 10 - 40 ml IV UD PRN PRN Reason: SALINE FLUSH Last Admin: 05/27/20 13:38 Dose: 40 ml Documented by: STROKE Vital Signs/Narrative: Vital Signs Temp Pulse Resp BP BP Pulse Ox 05/29/20 11:10 136 H 156/88 H 05/29/20 11:00 100.0 F H 117 H 20 H 156/88 H 100 05/29/20 10:00 100.0 F H 114 H 22 H 125/50 H 91 05/29/20 09:00 99.9 F H 129 H 23 H 135/58 H 96 Medical Necessity - Tobacco Use Smoking Status: Never smoker Assessment/Plan All Active Problems (Last Updated 05/27/20 @ 16:36 by Anne Enrique) Cardiogenic shock (Acute 05/26/20) STEMI (ST elevation myocardial infarction) (Acute 05/26/20) Acute respiratory failure with hypoxia (Acute 05/26/20) #STEMI * s/p cardiac cath. * was emergently intubated o/a of respiratory failure * aspirin, brilinta on hold o/a of upper gi bleed * on high intensity statin * has aortic balloon pump in place * cardiology on board * # Cardiogenic shock * now off pressors. balloon pump removed * cardiology on board * # Acute upper GI bleed * started having upper GI bleed after cardiac cath * on IV protonix * Hb today is 7.8. * general surgery on board * aspirin and brilinta on hold. On plavix * # Hypokalemia: resolved #Acute hypoxic respiratory failure due to flash pulmonary edema * successfully extubated this morning. on 3L of oxygen by nasal canula * on breathing treatment with bronchodilators * # Acute blood loss anemia due to UGI bleed: as under upper Gi bleed # Severe sepsis * Patient has fever and leukocytosis. Lactic acid also elevated to 2.4. * still remains febrile, tachyacrdic and tachypneic. wbc is only 8 * Blood cultures pending. Urine culture was negative. * on IV ceftriaxone * #Hypertension: * on losartan and metoprolol as well as hydrochlorothiazide. * now off pressors. Will resume meds. * DVT prophylaxis: on hold o/a of GI bleed GI prophylaxis; on PPI Inpatient E&M: [id number] [facility] L3
[2020-05-29 13:02] LABS: Pathologist Review Reviewed
[2020-05-29 13:07] LABS: Pathologist Review Reviewed
[2020-05-29] MEDS: Clopidogrel Bisulfate 75 MG Tablet PO (13:42)
[2020-05-29] MEDS: 0.9% Saline Lock 10 ML Syringe IV (17:54)
[2020-05-29 18:13] LABS: Hematocrit 23.7 % (37-47); Hemoglobin 7.9 g/dL (12.0-15.0)
[2020-05-29] MEDS: Atorvastatin Calcium 80 MG Tablet PO (22:11)
[2020-05-29] MEDS: Metoprolol Tartrate 50 MG Tablet PO (22:11)
[2020-05-29] MEDS: Acetaminophen 325 MG Tablet 650 MG PO (22:12)
[2020-05-30] VITALS (32 sets, daily range): BP systolic 90–151; BP diastolic 42–73; PULSE 63–106; RESP 18–27; TEMP 36.7–38.1; O2SAT 87–100
[2020-05-30 05:04] LABS: Absolute Lymphocyte Count 0.72 X10^3/uL (0.83-4.51); Absolute Neutrophil Count 4.8 X10^3/uL (2.0-7.7); Basophil# 0.03 X10^3/uL; Basophil% 0.5 % (0-1); Eosinophil# 0.18 X10^3/uL; Eosinophils% 2.8 % (0-5); Hematocrit 22.7 % (37-47); Hemoglobin 7.4 g/dL (12.0-15.0); Lymphocyte # 0.72 X10^3/ul (4.0); Lymphocyte % 11.2 % (19-41); Mean Corp Hgb Conc 32.6 g/dL (32-36); Mean Corpuscular Hgb 33.8 pg (27.0-32.0); Mean Corpuscular Volume 103.7 fL (81-99); Mean Platelet Vol. 9.4 fl (6.2-12.0); Monocyte# 0.69 X10^3/uL; Monocyte% 10.7 % (0-10); NRBC Flagged by Analyzer 0 % (0-5); Neutrophil % 74.5 % (47-70); Platelet Count 161 K/mm3 (150-450); RBC Distribution Width CV 12.5 % (11.6-14.6); RBC Distribution Width SD 46.9 fl (35.1-43.9); Red Blood Count 2.19 M/mm3 (4.2-5.4); White Blood Count 6.4 K/mm3 (4.4-11.0)
[2020-05-30 05:21] LABS: Anion Gap 3 (5-15); BUN 13 mg/dL (7-18); BUN/Creat Ratio 29.5 RATIO (10-20); Calcium,Total 8.5 mg/dL (8.5-10.1); Chloride 109 mmol/L (98-107); Creatinine, Serum 0.44 mg/dL (0.55-1.02); EST Glomerular Filtration Rate 145 mL/min (>60); Est Glom Filt Rate - Afr Amer 176 mL/min (>60); Estimated Creatinine Clearance 32.73 ml/min; Glucose 95 mg/dL (74-106); Potassium 3.4 mmol/L (3.5-5.1); Sodium Level 141 mmol/L (136-145)
--- NOTE | 2020-05-30 07:21 | PN_ITS ---
Subjective: Patient did okay overnight. No acute issues were reported. Patient has been able to be weaned to room air. No fevers have been noted overnight. Patient did have good diuresis associated with Lasix yesterday. Patient asking for p.o. intake General: Alert, Oriented x3, Cooperative, No apparent distress, - - Slightly s low to respond, but appropriate HEENT: Atraumatic, PERRLA, EOMI, Normocephalic, - - No scleral icterus or injection noted Oral: Moist Mucosa, No Gingival or Mucosal Lesions/ Ulcerations Neck: Supple, No JVD, No Nodes, Trachea Midline Lungs: No rhonchi, No wheeze, No rales, Diminished, - - Symmetric expansion. No dullness to percussion. Cardiovascular: Regular rate, Regular Rhythm, Normal S1, Normal S2, No murmurs, No rub noted, No Gallop Abdomen: Bowel Sounds Present, Soft, Non Tender, Non-Distended Extremities: No clubbing, No cyanosis, Edema - Bilateral lower extremities Skin: - - No change compared to previous Musculoskeletal: No Tenderness to Palpation of Joints or Extremities Lymphatic: No Cervical, Supraclavicular, or Inguinal Adenopathy Neurological: Cranial nerves II-XII grossly intact, Neuro grossly intact, Motor Exam 5/5 strength throughout Psych/Mental Status: Alert and oriented to time, place, person, mood and affect Vital Signs Temp Pulse Resp BP Pulse Ox 37.3 C H 91 22 H 130/54 H 91 05/30/20 07:00 05/30/20 07:00 05/30/20 07:00 05/30/20 07:00 05/30/20 07:00 Oxygen Flow Rate (L/min) 2 Oxygen Delivery Method Room Air Weight: 69.7 kg Body Mass Index (BMI) 28.3 Intake and Output for Last 24 Hours 05/28/20 05/29/20 05/30/20 23:59 23:59 23:59 Intake Total 5185.67 / 5208.84 2983.46 / 3033.46 174.5 / 174.5 Output Total 1265 / 1265 3740 / 4090 550 / 550 Balance 3920.67 / 3943.84 -756.54 / -1056.54 -375.5 / -375.5 Labs (Last 48 Hours) 05/27/20 05/28/2005/29/20 05:00 05:20 04:30 WBC 8.0 RBC 2.30 L Hgb 7.8 L Hct 23.7 L MCV 103.0 H MCH 33.9 H MCHC 32.9 RDW Std Deviation 46.0 H RDW Coeff of Rochelle 12.3 Plt Count 150 MPV 9.5 Immature Gran % (Auto) 0.200 Neut % (Auto) 79.7 H Lymph % (Auto) 8.2 L [place] % (Auto) 10.5 H Eos % (Auto) 0.9 Baso % (Auto) 0.5 Absolute Neuts (auto) 6.4 Absolute Lymphs (auto) 0.66 L Nucleated RBC % 0 Diff Path Review Reviewed Reviewed Specimen Type Sample Site pH Bicarbonate Actual Total CO2 Base Excess O2 Saturation O2 % ABG pCO2 ABG pO2 Kirk Test O2 Delivery Device Vent Mode POC PEEP POC Pressure Suppt Sodium Potassium Chloride Carbon Dioxide Anion Gap BUN Creatinine Estim Creat Clear Calc Est GFR (MDRD) Af Amer Est GFR (MDRD) Non-Af BUN/Creatinine Ratio Glucose Calcium 05/29/20 05/29/20 05/29/20 04:30 06:05 17:50 WBC RBC Hgb 7.9 L Hct 23.7 L MCV MCH MCHC RDW Std Deviation RDW Coeff of Rochelle Plt Count MPV Immature Gran % (Auto) Neut % (Auto) Lymph % (Auto) [place] % (Auto) Eos % (Auto) Baso % (Auto) Absolute Neuts (auto) Absolute Lymphs (auto) Nucleated RBC % Diff Path Review Specimen Type ART Sample Site L Radial pH 7.38 Bicarbonate Actual 20.9 L Total CO2 22 Base Excess -4 L O2 Saturation 85 L O2 % 30 ABG pCO2 35.4 ABG pO2 51 L Kirk Test Positive O2 Delivery Device Adult Vent Vent Mode CPAP/PS POC PEEP 5 POC Pressure Suppt 5 Sodium 142 Potassium 3.4 L Chloride 113 H Carbon Dioxide 23.0 Anion Gap 6 BUN 8 Creatinine 0.39 L Estim Creat Clear Calc 32.73 Est GFR (MDRD) Af Amer 203 Est GFR (MDRD) Non-Af 167 BUN/Creatinine Ratio 20.6 H Glucose 110 H Calcium 8.1 L 05/30/20 05/30/20 04:56 04:56 WBC 6.4 RBC 2.19 L Hgb 7.4 L Hct 22.7 L MCV 103.7 H MCH 33.8 H MCHC 32.6 RDW Std Deviation 46.9 H RDW Coeff of [place]hel[place] 12.5 Plt Count 161 MPV 9.4 Immature Gran % (Auto) 0.300 Neut % (Auto) 74.5 H Lymph % (Auto) 11.2 L [place] % (Auto) 10.7 H Eos % (Auto) 2.8 Baso % (Auto) 0.5 Absolute Neuts (auto) 4.8 Absolute Lymphs (auto) 0.72 L Nucleated RBC % 0 Diff Path Review Specimen Type Sample Site pH Bicarbonate Actual Total CO2 Base Excess O2 Saturation O2 % ABG pCO2 ABG pO2 Kirk Test O2 Delivery Device Vent Mode POC PEEP POC Pressure Suppt Sodium 141 Potassium 3.4 L Chloride 109 H Carbon Dioxide 29.0 Anion Gap 3 L BUN 13 Creatinine 0.44 L Estim Creat Clear Calc 32.73 Est GFR (MDRD) Af Amer 176 Est GFR (MDRD) Non-Af 145 BUN/Creatinine Ratio 29.5 H Glucose 95 Calcium 8.5 Microbiology 05/27/20 08:20 Blood Culture (Wb) #2 - Anticubital Right Blood Culture - Preliminary No growth in 48 hours. 05/27/20 07:50 Blood Culture (Wb) - Central Line Blood Culture - Preliminary No growth in 48 hours. 05/29/20 04:32 Sputum, Induced/Lukens Gram Stain - Final 05/27/20 08:00 Urine Catheter - Owens Urine Culture - Final Culture exhibits no growth. Clinical Impression(s) from Imaging Studies Chest X-Ray 05/29/20 05:55 IMPRESSION: Blunting of both costophrenic angles with mild increased markings at the lung bases suggestive of bibasilar atelectasis. The tip of the endotracheal tube is just proximal to the elham. It should be pulled back approximately 1.5 cm. Electronically Signed: Zan Campos, at 9:42 EST , Service support , Medical Necessity - Tobacco Use Smoking Status: Never smoker Assessment/Plan All Active Problems (Last Updated 05/27/20 @ 16:36 by Anne Enrique) Cardiogenic shock (Acute 11/27/20) STEMI (ST elevation myocardial infarction) (Acute 05/26/20) Acute respiratory failure with hypoxia (Acute 05/26/20) RECOMMENDATIONS: 1. Beta-richard and diuretics per cardiology 2. Advance diet 3. Obtain H&H later today 4. Transfuse for hemoglobin less than 8 5. Possible transfer from the intensive care unit IMPRESSIONS: 1. Cardiogenic versus septic shock secondary to ST elevation WI of the left main Patient off Levophed therapy. Patient responded well to IABP, but this was discontinued. Patient does have a fever at this time of unclear etiology, but appears to be improving. Patient currently on empiric antibiotics pending culture data. Patient tolerating beta-richard and diuresis yesterday. 2. Acute hypoxic respiratory failure secondary to flash pulmonary edema Patient appears to be responding well to supportive measures. Oxygenation has significantly improved compared to presentation and improvement in hemodynamics. Patient extubated then diuresed yesterday. Oxygenation appears to be improving. Increase activity as tolerated. Encourage incentive spirometer. 3. Acute blood loss anemia secondary to possible upper GI bleed Patient would require antiplatelet and anticoagulation from a GI standpoint. Patient noted to be guaiac positive from gastric secretions. Surgery has been consulted. EGD was unclear of a potential source outside of blood presence. Unclear if bleeding could have been from the upper airway. Patient remains on a PPI. Patient does report that she has had GERD symptoms recently at home and was started on a PPI. Likely okay to advance diet today given lack of hematemesis or melena. 4. Advanced age/hyperlipidemia/hypertension Complicates care, management, recovery and prognosis. Antihypertensive medication should be held secondary to acute condition. Defer statin to cardiology. Inpatient E&M: [id number] [facility] L3
--- NOTE | 2020-05-30 08:12 | PN.CARD_ITS ---
Subjectve: Patient seen and evaluated. Appears to be doing better. Objective: Vital Signs Temp Pulse Resp BP Pulse Ox 99.2 F H 91 22 H 130/54 H 91 05/30/20 07:00 05/30/20 07:00 05/30/20 07:00 05/30/20 07:00 05/30/20 07:00 Oxygen Flow Rate (L/min) 2 Oxygen Delivery Method Room Air Weight: 153 lb 10.595 oz Body Mass Index (BMI) 28.3 Intake and Output for Last 24 Hours 05/28/20 05/29/20 05/30/20 23:59 23:59 23:59 Intake Total 5185.67 / 5208.84 2983.46 / 3033.46 174.5 / 174.5 Output Total 1265 / 1265 3740 / 4090 550 / 550 Balance 3920.67 / 3943.84 -756.54 / -1056.54 -375.5 / -375.5 General: Awake, Alert, Oriented x 3 HEENT: PERRL, EOMI, Sclera Non Icteric Neck: Supple, Good ROM, No Lymph Node Enlargement Lungs: Diminished Left Base Cardiovascular: Regular Rhythm, Normal S1, Normal S2, No Murmurs, No Rubs, No Gallops 05/29/20 17:50: Hgb 7.9 L, Hct 23.7 L 05/30/20 04:56: WBC 6.4, RBC 2.19 L, Hgb 7.4 L, Hct 22.7 L, MCV 103.7 H, MCH 33.8 H, MCHC 32.6, Plt Count 161, MPV 9.4, Immature Gran % (Auto) 0.300, Neut % (Auto) 74.5 H, Lymph % (Auto) 11.2 L, [place] % (Auto) 10.7 H, Eos % (Auto) 2.8, Baso % (Auto) 0.5, Absolute Neuts (auto) 4.8, Nucleated RBC % 0 05/30/20 04:56: Sodium 141, Potassium 3.4 L, Chloride 109 H, Carbon Dioxide 29.0, Anion Gap 3 L, BUN 13, Creatinine 0.44 L, Est GFR (MDRD) Af Amer 176, Est GFR (MDRD) Non-Af 145, BUN/Creatinine Ratio 29.5 H, Glucose 95, Calcium 8.5 Rhythm: EKG: ECHO: Stress Test: Cardiac Cath: PCI: CT Surgery: Holter monitor: EPS: PPM: CXR: Chest CT Scan: Medical Necessity - Tobacco Use Smoking Status: Never smoker Assessment/Plan 1. Status post lateral myocardial infarction * Patient underwent angioplasty and stenting of the left circumflex artery. She had to have an intra-aortic balloon pump placed due to cardiogenic shock which resolved immediately after placement of the stent. Balloon pump was removed with no issues. Groin is noted to be normal. Patient denies any chest pain with minimal shortness of breath at this time. * Plan will be to continue high intensity statin * Will continue aspirin and Brilinta * Will start beta-richard orally this morning. * Will set up for cardiac rehabilitation * Will recommend IV Lasix 20 mg this morning during the blood transfusion * Echocardiogram demonstrates preserved ejection fraction. * Interestingly enough she discontinued her clopidogrel a few days before the incident because she felt that she had been on it for more than a year. She had also been told by her pharmacist that it was interacting with her GERD medication. * Will obtain chest x-ray to assess diminution of flow to the left base of the lung 2. Status post intubation * This is being managed by the gang rider and hospitalist appreciate their input and help * EGD did not demonstrate any significant upper GI bleeding * 3. Severe anemia * In the face of the recent acute myocardial infarction she may benefit from a unit of packed red blood cells with probably 20 mg of IV Lasix in between. * * We will recommend transferring to the progressive care unit after that. The patient would follow-up with me in the office. Had previously been seen by Dr. Damian and was scheduled to see Dr. Brooks in office next year but has opted to stay with me since I followed with her in the hospital.
--- NOTE | 2020-05-30 08:45 | RAD_ITS ---
STUDY: X-RAY CHEST REASON FOR EXAM: Female, 84 years old. SOB TECHNIQUE: Single AP portable view of the chest. COMPARISON: Comparison is made with prior study dated 05/29/2020. FINDINGS: The endotracheal tube and orogastric tube have been removed. A left-sided PICC line catheter is seen with the tip at the junction of the superior vena cava and right atrium. There are small residual bilateral pleural effusions with bibasilar atelectasis worse on the left side. Mild degree of residual vascular congestion. Borderline cardiomegaly. Normal mediastinum and shantell. Normal visualized pulmonary arteries. There is atherosclerotic calcification of the aortic arch with tortuosity. There are diffuse degenerative changes of the visualized thoracic spine. Normal visualized ribs, clavicles, and shoulders. There is no demonstrated abnormality of the visualized soft tissue structures of the upper abdomen. RAD/Chest 1 View (Portable) IMPRESSION: Interval removal of the endotracheal tube and orogastric tube. Persistent small bilateral pleural effusions with bibasilar atelectasis and/or infiltrates worse on the left side. Mild degree of residual CHF. Electronically Signed: Zan Campos, at 12:00 EST , Service support ,
[2020-05-30] MEDS: 0.9% Saline Lock 10 ML Syringe IV ×4 (10:34→16:00)
[2020-05-30] MEDS: Aspirin 81 MG TAB.CHEW PO (10:35)
[2020-05-30] MEDS: Clopidogrel Bisulfate 75 MG Tablet PO (10:35)
[2020-05-30] MEDS: Multivitamins,Therapeutic Tablet 1 TABLET PO (10:35)
[2020-05-30] MEDS: Metoprolol Tartrate 50 MG Tablet PO ×2 (10:35→21:41)
[2020-05-30] MEDS: Calcium Carb/Vitamin D 1 TABLET Tablet PO (10:36)
[2020-05-30] MEDS: Pantoprazole Sodium 40 MG Tablet PO ×2 (11:25→21:41)
--- NOTE | 2020-05-30 13:01 | CRPHASE1 ---
Patient Communication PHII Cardiac Rehab Discussed with Patient:: Yes Guide to Cardiac Rehab Given to Patient:: Yes Cardiac Rehab Facility Choice List Given to Patient:: Yes Choice Program Other:: Communication Given to CR - Pt mentioned [facility] as possible choice. 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 Manolo Walden MD) Father CAD (coronary artery disease) Brother Hypertension Mother Hypertension Sister Hypertension Past Cardiac Illness: Coronary Artery Disease, Myocardial Infarction, Previous PCI w/Stent Laboratory Values: Cardiac Rehab Phase I Labs Triglycerides 297 mg/dL (-199) H 05/26/20 20:25 Phase I Education Given On:: [place], Nutrition, Antiplatelet medication, CHF Issues Affecting Care:: None Knowledge of Condition:: Yes Learning Preferences: Verbal Cardiac Rehabilitation Info Cardiac Rehabilitation Program Information: Cardiac Rehabilitation is important for patients like you who are recovering from a heart problem. Cardiac rehabilitation programs are recognized as integral to the continued care of the patient with coronary heart disease. The cardiac rehabilitation program is designed to optimize a patient's physical, psychological, and social functioning. Health child care education coordinator work in cardiac rehabilitation programs and assist you with getting the treatments you need to get stronger and healthier - like exercise, healthy eating habits, and medications. Cardiac rehabilitation has been show to help people with heart problems live longer and have better life enjoyment than people who do not go to cardiac rehabilitation. Please contact the Cardiac Rehabilitation Program at [facility] at in two weeks if you have not heard from them.
--- NOTE | 2020-05-30 13:05 | CRPH1.INSTRU ---
General Education CAD and cardiac anatomy and function:: Patient communicates acknowledgment Explanation of diagnoses and procedures:: Patient communicates acknowledgment Sign/Symptoms of MD:: Patient communicates acknowledgment Antiplatelet therapy: Patient communicates acknowledgment Proper use of NTG-SL: Patient communicates acknowledgment Emergency procedures and activation of EMS: Patient communicates acknowledgment Compliance of all prescribed medications: Patient communicates acknowledgment Dyslipidemia Patient Dyslipidemia Risk Factors Are:: Total Cholesterol, Triglycerides, HDL, LDL Recommendations Include:: Lipid profile not available, Reviewed NCEP/ATP guidelines, Therapeutic Lifestyle Change dietary guidelines Dyslipidemia Response Code:: Patient communicates acknowledgment Overweight/Obesity Patient Overweight/Obesity Risk Factors Are:: BMI Normal [24-29 & > 65 years old] Recommendations Include:: Weight loss of 5-10%, Reduced calorie diet, Exercise 5-7 times/week Overweight/Obesity:: Patient communicates acknowledgment Hypertension Recommendations Include:: Maintain BP <130/85, DASH dietary guidelines, Decrease/maintain normal body weight, Moderation of ETOH Hypertension:: Patient communicates acknowledgment Heart Disease Patient Heart Disease Risk Factors Are:: Previous cardiac event Recommendations Include:: Educated family members of their risk Heart Disease Response Code:: Patient communicates acknowledgment Sedentary Patient Sedentary Risk Factors Are:: Lack of regular exercise Recommendations Include:: Aerobic exercise 5-7 times/week for 20-30 minutes continuously, Benefits of regular exercise, Discussed home walking program, Monitored Outpatient Cardiac Rehab Sedentary Response Code:: Patient communicates acknowledgment Stress Patient Stress Risk Factors Are:: Patient denies stress as a risk factor Recommendations Include:: Identification of stressors, and assessment of coping skills, Stress management techniques Stress Response Code:: Patient communicates acknowledgment
--- NOTE | 2020-05-30 14:43 | PN_ITS ---
Patient Problems: Active and Suspected Problems (Last Updated 05/27/20 @ 16:36 by Anne Enrique) STEMI (ST elevation myocardial infarction) (Acute 05/26/20) Acute respiratory failure with hypoxia (Acute 05/26/20) Subjective: Patient seen and examined. She has no complaints today, and was comfortably sitting up in a chair. Review of systems was otherwise negative. Vitals/I&O's: Vital Signs Temp Pulse Resp BP Pulse Ox 100.2 F H 93 23 H 114/56 L 98 05/30/20 11:00 05/30/20 11:00 05/30/20 11:00 05/30/20 11:00 05/30/20 11:00 Oxygen Flow Rate (L/min) 1 Oxygen Delivery Method Nasal Cannula Weight: 153 lb 10.595 oz Body Mass Index (BMI) 28.3 Intake and Output for Last 24 Hours 05/28/20 05/29/20 05/30/20 23:59 23:59 23:59 Intake Total 5185.67 / 5208.84 2983.46 / 3033.46 714.50 / 714.50 Output Total 1265 / 1265 3740 / 4090 675 / 675 Balance 3920.67 / 3943.84 -756.54 / -1056.54 39.50 / 39.50 General: Alert, Oriented x3, Cooperative HEENT: Atraumatic, PERRLA, EOMI, Normocephalic Oral: Dry Mucosa Neck: Supple, No JVD, Negative Carotid Bruits Lungs: - - diminished breath sounds bibasally, extubated. On 2L of oxygen. Cardiovascular: Regular rate, Normal S1, Normal S2, No murmurs, Abdomen: Bowel Sounds Present, Soft, Non Tender, Non-Distended, No Hepato- splenomegaly Extremities: No clubbing, No cyanosis, Capillary Refill Less than 3 Seconds, - - generalised 1+ pitting edema Skin: No rashes, No breakdown Musculoskeletal: No Tenderness to Palpation of Joints or Extremities Lymphatic: No Cervical, Supraclavicular, or Inguinal Adenopathy Neurological: Cranial nerves II-XII grossly intact, Neuro grossly intact, Motor Exam 5/5 strength throughout Psych/Mental Status: Normal Affect, Appropriate, Alert and oriented to time, place, person, mood and affect Microbiology Past 72 Hours 05/29/20 04:32 Sputum, Induced/Lukens Gram Stain - Final 05/29/20 04:32 Sputum, Induced/Lukens Respiratory Culture - Preliminary Appears to be normal respiratory evens. Further studies to follow. 05/27/20 08:20 Blood Culture (Wb) #2 - Anticubital Right Blood Culture - Preliminary No growth in 48 hours. 05/27/20 07:50 Blood Culture (Wb) - Central Line Blood Culture - Preliminary No growth in 48 hours. 05/27/20 08:00 Urine Catheter - Owens Urine Culture - Final Culture exhibits no growth. Laboratory Results 05/29/20 17:50: Hgb 7.9 L, Hct 23.7 L 05/30/20 04:56: WBC 6.4, RBC 2.19 L, Hgb 7.4 L, Hct 22.7 L, MCV 103.7 H, MCH 33.8 H, MCHC 32.6, RDW Std Deviation 46.9 H, RDW Coeff of Rochelle 12.5, Plt Count 161, MPV 9.4, Immature Gran % (Auto) 0.300, Neut % (Auto) 74.5 H, Lymph % (Auto) 11.2 L, [place] % (Auto) 10.7 H, Eos % (Auto) 2.8, Baso % (Auto) 0.5, Absolute Neuts (auto) 4.8, Absolute Lymphs (auto) 0.72 L, Nucleated RBC % 0 05/30/20 04:56: Sodium 141, Potassium 3.4 L, Chloride 109 H, Carbon Dioxide 29.0, Anion Gap 3 L, BUN 13, Creatinine 0.44 L, Estim Creat Clear Calc 32.73, Est GFR (MDRD) Af Amer 176, Est GFR (MDRD) Non-Af 145, BUN/Creatinine Ratio 29.5 H, Glucose 95, Calcium 8.5 05/30/20 09:15: Blood Type O POSITIVE, Antibody Screen NEGATIVE, Crossmatch See Detail Current Medications Acetaminophen (Acetaminophen 325 Mg Tablet) 650 mg PO Q6H PRN PRN PRN Reason: FEVER Last Admin: 05/29/20 22:12 Dose: 650 mg Documented by: Aspirin (Aspirin 81 Mg Tab.Chew) 81 mg PO DAILY@0800 [place] Last Admin: 05/30/20 10:35 Dose: 81 mg Documented by: Atorvastatin Calcium (Atorvastatin Calcium 80 Mg Tablet) 80 mg PO QHS [facility] Last Admin: 05/29/20 22:11 Dose: 80 mg Documented by: Calcium/Vitamin D (Calcium Carb/Vitamin D 1 Tablet Tablet) 1 tablet PO DAILY [facility] Last Admin: 05/30/20 10:36 Dose: 1 tablet Documented by: Clopidogrel Bisulfate (Clopidogrel Bisulfate 75 Mg Tablet) 75 mg PO DAILY [facility] Last Admin: 05/30/20 10:35 Dose: 75 mg Documented by: Sodium Chloride () 250 mls @ 15 mls/hr IV .[id number] PRN PRN Reason: Saline Flush Metoprolol Tartrate (Metoprolol Tartrate 50 Mg Tablet) 50 mg PO BID [facility] Last Admin: 05/30/20 10:35 Dose: 50 mg Documented by: Multivitamins (Multivitamins,Therapeutic Tablet) 1 tablet PO DAILYCM [facility] Last Admin: 05/30/20 10:35 Dose: 1 tablet Documented by: Pantoprazole Sodium (Pantoprazole Sodium 40 Mg Tablet) 40 mg PO BID [facility] Last Admin: 05/30/20 11:25 Dose: 40 mg Documented by: Sodium Chloride (0.9% Saline Lock 10 Ml Syringe) 10 - 40 ml IV UD PRN PRN Reason: SALINE FLUSH Last Admin: 05/30/20 11:25 Dose: 10 ml Documented by: STROKE Vital Signs/Narrative: Vital Signs Temp Pulse Resp BP Pulse Ox 05/30/20 11:00 100.2 F H 93 23 H 114/56 L 98 Medical Necessity - Tobacco Use Smoking Status: Never smoker Assessment/Plan All Active Problems (Last Updated 05/27/20 @ 16:36 by Anne Enrique) Cardiogenic shock (Acute 05/26/20) STEMI (ST elevation myocardial infarction) (Acute 05/26/20) Acute respiratory failure with hypoxia (Acute 05/26/20) #STEMI * s/p cardiac cath. * was emergently intubated o/a of respiratory failure * aspirin, brilinta on hold o/a of upper gi bleed * on high intensity statin * now extubated, and intraaortic balloon pump out * cardiology on board * aspirin and plavix resumed * # Cardiogenic shock * now off pressors. balloon pump removed * cardiology on board * # Acute upper GI bleed * started having upper GI bleed after cardiac cath * on IV protonix * Hb today is 7.4. To be transfused one unit of PRBC today. * general surgery on board * on aspirin and plavix. * # Acute on chronic anemia due to GI bleed: as above * # Hypokalemia: potassium today is 3.4. Will replace and monitor #Acute hypoxic respiratory failure due to flash pulmonary edema * successfully extubated. on 2L of oxygen by nasal canula * on breathing treatment with bronchodilators * # Acute blood loss anemia due to UGI bleed: as under upper Gi bleed # Severe sepsis * patient has a persistent fever. * Blood cultures are negative and urine culture also negative. Respiratory panel also negative. * ceftriaxone discontinued * #Hypertension: * on losartan and metoprolol as well as hydrochlorothiazide. * now off pressors. Will resume meds. * DVT prophylaxis: on hold o/a of GI bleed GI prophylaxis; on PPI Disposition: transfer to PCU Inpatient E&M: [id number] [facility]osp L2
[2020-05-30] MEDS: Furosemide 20 MG/2 ML VIAL IV (15:35)
[2020-05-30 16:12] LABS: Hematocrit 25.8 % (37-47); Hemoglobin 8.7 g/dL (12.0-15.0)
--- NOTE | 2020-05-30 16:23 | NURSING ---
report called to FINANCIAL SERVICE REP Jon.
--- NOTE | 2020-05-30 16:24 | NURSING ---
to [id number] per bed
[2020-05-30] MEDS: Atorvastatin Calcium 80 MG Tablet PO (21:41)
[2020-05-31] VITALS (10 sets, daily range): BP systolic 148–163; BP diastolic 67–78; PULSE 72–90; RESP 18–20; TEMP 36.7–36.9; O2SAT 93–97
[2020-05-31 07:04] LABS: Absolute Neutrophil Count 4.4 X10^3/uL (2.0-7.7); Basophil# 0.04 X10^3/uL; Basophil% 0.7 % (0-1); Eosinophil# 0.23 X10^3/uL; Eosinophils% 3.7 % (0-5); Hematocrit 26.7 % (37-47); Mean Corp Hgb Conc 33.7 g/dL (32-36); Mean Corpuscular Hgb 32.7 pg (27.0-32.0); Mean Corpuscular Volume 97.1 fL (81-99); Mean Platelet Vol. 9.4 fl (6.2-12.0); Monocyte# 0.69 X10^3/uL; Monocyte% 11.2 % (0-10); NRBC Flagged by Analyzer 0 % (0-5); Neutrophil # 4.36 X10^3/uL (2.7-7.7); Neutrophil % 70.9 % (47-70); Platelet Count 218 K/mm3 (150-450); RBC Distribution Width CV 15.7 % (11.6-14.6); RBC Distribution Width SD 55.1 fl (35.1-43.9); Red Blood Count 2.75 M/mm3 (4.2-5.4); White Blood Count 6.2 K/mm3 (4.4-11.0)
[2020-05-31 07:24] LABS: Anion Gap 4 (5-15); BUN 15 mg/dL (7-18); BUN/Creat Ratio 30.2 RATIO (10-20); Calcium,Total 8.7 mg/dL (8.5-10.1); Chloride 106 mmol/L (98-107); EST Glomerular Filtration Rate 126 mL/min (>60); Est Glom Filt Rate - Afr Amer 153 mL/min (>60); Estimated Creatinine Clearance 32.73 ml/min; Glucose 117 mg/dL (74-106); Potassium 3.2 mmol/L (3.5-5.1); Sodium Level 139 mmol/L (136-145)
[2020-05-31] MEDS: Clopidogrel Bisulfate 75 MG Tablet PO (08:30)
[2020-05-31] MEDS: Multivitamins,Therapeutic Tablet 1 TABLET PO (08:30)
[2020-05-31] MEDS: Metoprolol Tartrate 50 MG Tablet PO ×2 (08:30→21:40)
[2020-05-31] MEDS: Aspirin 81 MG TAB.CHEW PO (08:30)
[2020-05-31] MEDS: Pantoprazole Sodium 40 MG Tablet PO ×2 (08:33→21:41)
--- NOTE | 2020-05-31 09:05 | PN.CARD_ITS ---
Subjectve: Patient seen and evaluated. Appears to be doing better. Still complains of some shortness of breath Objective: Vital Signs Temp Pulse Resp BP Pulse Ox 98.2 F 90 20 H 148/78 H 97 05/31/20 03:30 05/31/20 08:30 05/31/20 03:30 05/31/20 08:30 05/31/20 03:30 Oxygen Flow Rate (L/min) 2 Oxygen Delivery Method Room Air Weight: 153 lb 3.54 oz Body Mass Index (BMI) 28.3 Intake and Output for Last 24 Hours 05/29/20 05/30/20 05/31/20 23:59 23:59 23:59 Intake Total 2983.46 / 3033.46 1694.50 / 1694.50 200 / 200 Output Total 3740 / 4090 1900 / 1900 150 / 150 Balance -756.54 / -1056.54 -205.50 / -205.50 50 / 50 General: Awake, Alert, Oriented x 3 HEENT: PERRL, EOMI, Sclera Non Icteric Neck: Supple, Good ROM, No Lymph Node Enlargement Lungs: Diminished Jhonatan Bases Cardiovascular: Regular Rhythm, Normal S1, Normal S2, No Murmurs, No Rubs, No Gallops Vascular: No Carotid Bruits, Normal Femoral Pulses, Normal Radial Pulses, Normal Dorsalis Pedal Pulse, Normal Posterior Tibial Pulses Abdomen: Bowel Sounds Present, Soft, Non Tender, No HSM, No Organomegaly Extremities: No Cyanosis, No Clubbing, No edema Neurological: No Focal Motor or Sensory Deficit 05/30/20 15:55: Hgb 8.7 L, Hct 25.8 L 05/31/20 06:45: WBC 6.2, RBC 2.75 L, Hgb 9.0 L, Hct 26.7 L, MCV 97.1 D, MCH 32.7 H, MCHC 33.7, Plt Count 218, MPV 9.4, Immature Gran % (Auto) 0.500, Neut % (Auto) 70.9 H, Lymph % (Auto) 13.0 L, Real % (Auto) 11.2 H, Eos % (Auto) 3.7, Baso % (Auto) 0.7, Absolute Neuts (auto) 4.4, Nucleated RBC % 0 05/31/20 06:45: Sodium 139, Potassium 3.2 L, Chloride 106, Carbon Dioxide 29.0, Anion Gap 4 L, BUN 15, Creatinine 0.50 L, Est GFR (MDRD) Af Amer 153, Est GFR (MDRD) Non-Af 126, BUN/Creatinine Ratio 30.2 H, Glucose 117 H, Calcium 8.7 Rhythm: EKG: ECHO: Stress Test: Cardiac Cath: PCI: CT Surgery: Holter monitor: EPS: PPM: CXR: Chest CT Scan: Medical Necessity - Tobacco Use Smoking Status: Never smoker Assessment/Plan 1. Status post lateral myocardial infarction * Patient underwent angioplasty and stenting of the left circumflex artery. She had to have an intra-aortic balloon pump placed due to cardiogenic shock which resolved immediately after placement of the stent. Balloon pump was removed with no issues. Groin is noted to be normal. Patient denies any chest pain with minimal shortness of breath at this time. * Plan will be to continue high intensity statin * Will continue aspirin and Brilinta * Will continue beta-richard orally this morning. * Will set up for cardiac rehabilitation * Will recommend p.o. Lasix 40 mg this morning during the blood transfusion * Echocardiogram demonstrates preserved ejection fraction. * Interestingly enough she discontinued her clopidogrel a few days before the incident because she felt that she had been on it for more than a year. She had also been told by her pharmacist that it was interacting with her GERD medication. * Will obtain chest x-ray to assess diminution of flow to the left base of the lung 2. Status post intubation * This is being managed by the senior construction manager and hospitalist appreciate their input and help * EGD did not demonstrate any significant upper GI bleeding * 3. Severe anemia * In the face of the recent acute myocardial infarction she may benefit from a unit of packed red blood cells with probably 20 mg of IV Lasix in between. * * We will recommend transferring to the progressive care unit after that. The patient would follow-up with me in the office. Had previously been seen by Dr. Damian and was scheduled to see Dr. Brooks in office next year but has opted to stay with me since I followed with her in the hospital.
[2020-05-31] MEDS: Calcium Carb/Vitamin D 1 TABLET Tablet PO (09:50)
[2020-05-31] MEDS: Furosemide 40 MG Tablet PO ×2 (09:50→17:50)
[2020-05-31] MEDS: Lisinopril 5 MG Tablet PO (09:50)
--- NOTE | 2020-05-31 15:07 | PCM.PN.HOSP ---
Patient Problems: Active and Suspected Problems (Last Updated 05/27/20 @ 16:36 by Anne Enrique) STEMI (ST elevation myocardial infarction) (Acute 05/26/20) Acute respiratory failure with hypoxia (Acute 05/26/20) Subjective: Patient seen and examined. She had no complaitns and was comfortably eating breakfast. Review of systems otherwise negative. She has remained hemodynamically stable. Potassium today is 3.2 Vitals/I&O's: Vital Signs Temp Pulse Resp BP Pulse Ox 98.1 F 90 18 148/78 H 95 05/31/20 09:30 05/31/20 09:30 05/31/20 09:30 05/31/20 09:30 05/31/20 09:30 Oxygen Flow Rate (L/min) 2 Oxygen Delivery Method Room Air Weight: 153 lb 3.54 oz Body Mass Index (BMI) 28.3 Intake and Output for Last 24 Hours 05/29/20 05/30/20 05/31/20 23:59 23:59 23:59 Intake Total 2983.46 / 3033.46 1694.50 / 1694.50 440 / 440 Output Total 3740 / 4090 1900 / 1900 600 / 600 Balance -756.54 / -1056.54 -205.50 / -205.50 -160 / -160 General: Alert, Oriented x3, Cooperative HEENT: Atraumatic, PERRLA, EOMI, Normocephalic Oral: Dry Mucosa Neck: Supple, No JVD, Negative Carotid Bruits Lungs: - - diminished breath sounds bibasally. On room air Cardiovascular: Regular rate, Normal S1, Normal S2, No murmurs, Abdomen: Bowel Sounds Present, Soft, Non Tender, Non-Distended, No Hepato-splenomegaly Extremities: No clubbing, No cyanosis, Capillary Refill Less than 3 Seconds, - - generalised 1+ pitting edema Skin: No rashes, No breakdown Musculoskeletal: No Tenderness to Palpation of Joints or Extremities Lymphatic: No Cervical, Supraclavicular, or Inguinal Adenopathy Neurological: Cranial nerves II-XII grossly intact, Neuro grossly intact, Motor Exam 5/5 strength throughout Psych/Mental Status: Normal Affect, Appropriate, Alert and oriented to time, place, person, mood and affect Microbiology Past 72 Hours 05/29/20 04:32 Sputum, Induced/Lukens Gram Stain - Final 05/29/20 04:32 Sputum, Induced/Lukens Respiratory Culture - Final 05/27/20 08:20 Blood Culture (Wb) #2 - Anticubital Right Blood Culture - Preliminary No growth in 48 hours. 05/27/20 07:50 Blood Culture (Wb) - Central Line Blood Culture - Preliminary No growth in 48 hours. 05/27/20 08:00 Urine Catheter - Owens Urine Culture - Final Culture exhibits no growth. Laboratory Results 05/30/20 15:55: Hgb 8.7 L, Hct 25.8 L 05/31/20 06:45: WBC 6.2, RBC 2.75 L, Hgb 9.0 L, Hct 26.7 L, MCV 97.1 D, MCH 32.7 H, MCHC 33.7, RDW Std Deviation 55.1 H, RDW Coeff of Rochelle 15.7 H, Plt Count 218, MPV 9.4, Immature Gran % (Auto) 0.500, Neut % (Auto) 70.9 H, Lymph % (Auto) 13.0 L, Larue % (Auto) 11.2 H, Eos % (Auto) 3.7, Baso % (Auto) 0.7, Absolute Neuts (auto) 4.4, Absolute Lymphs (auto) 0.80 L, Nucleated RBC % 0 05/31/20 06:45: Sodium 139, Potassium 3.2 L, Chloride 106, Carbon Dioxide 29.0, Anion Gap 4 L, BUN 15, Creatinine 0.50 L, Estim Creat Clear Calc 32.73, Est GFR (MDRD) Af Amer 153, Est GFR (MDRD) Non-Af 126, BUN/Creatinine Ratio 30.2 H, Glucose 117 H, Calcium 8.7 Current Medications Acetaminophen (Acetaminophen 325 Mg Tablet) 650 mg PO Q6H PRN PRN PRN Reason: FEVER Last Admin: 05/29/20 22:12 Dose: 650 mg Documented by: Aspirin (Aspirin 81 Mg Tab.Chew) 81 mg PO DAILY@0800 [facility] Last Admin: 05/31/20 08:30 Dose: 81 mg Documented by: Atorvastatin Calcium (Atorvastatin Calcium 80 Mg Tablet) 80 mg PO QHS [facility] Last Admin: 05/30/20 21:41 Dose: 80 mg Documented by: Calcium/Vitamin D (Calcium Carb/Vitamin D 1 Tablet Tablet) 1 tablet PO DAILY [facility] Last Admin: 05/31/20 09:50 Dose: 1 tablet Documented by: Clopidogrel Bisulfate (Clopidogrel Bisulfate 75 Mg Tablet) 75 mg PO DAILY [facility] Last Admin: 05/31/20 08:30 Dose: 75 mg Documented by: Furosemide (Furosemide 40 Mg Tablet) 40 mg PO BID@1000,1800 [facility] Last Admin: 05/31/20 09:50 Dose: 40 mg Documented by: Sodium Chloride () 250 mls @ 15 mls/hr IV .[id number] PRN PRN Reason: Saline Flush Lisinopril (Lisinopril 5 Mg Tablet) 5 mg PO DAILY [facility] Last Admin: 05/31/20 09:50 Dose: 5 mg Documented by: Metoprolol Tartrate (Metoprolol Tartrate 50 Mg Tablet) 50 mg PO BID [facility] Last Admin: 05/31/20 08:30 Dose: 50 mg Documented by: Multivitamins (Multivitamins,Therapeutic Tablet) 1 tablet PO DAILYCM [facility] Last Admin: 05/31/20 08:30 Dose: 1 tablet Documented by: Pantoprazole Sodium (Pantoprazole Sodium 40 Mg Tablet) 40 mg PO BID [facility] Last Admin: 05/31/20 08:33 Dose: 40 mg Documented by: Sodium Chloride (0.9% Saline Lock 10 Ml Syringe) 10 - 40 ml IV UD PRN PRN Reason: SALINE FLUSH Last Admin: 05/30/20 16:00 Dose: 20 ml Documented by: Medical Necessity - Tobacco Use Smoking Status: Never smoker Assessment/Plan All Active Problems (Last Updated 05/27/20 @ 16:36 by Anne Enrique) Cardiogenic shock (Acute 05/26/20) STEMI (ST elevation myocardial infarction) (Acute 05/26/20) Acute respiratory failure with hypoxia (Acute 05/26/20) #STEMI s/p cardiac cath. was emergently intubated o/a of respiratory failure on high intensity statin now extubated, and intraaortic balloon pump out cardiology on board on aspirin and plavix # Cardiogenic shock now off pressors. balloon pump removed cardiology on board # Acute upper GI bleed started having upper GI bleed after cardiac cath s/p transfusion of one unit of PRBCs on IV protonix Hb today is 9. general surgery on board on aspirin and plavix. # Acute on chronic anemia due to GI bleed: as above # Hypokalemia: potassium today is 3.2. Will replace and monitor #Acute hypoxic respiratory failure due to flash pulmonary edema successfully extubated. weaned off oxygen and now on room air. on breathing treatment with bronchodilators # Acute blood loss anemia due to UGI bleed: as under upper Gi bleed # Severe sepsis fever resolved. leucoyctosis resolved. blood and urine cultures negative ceftriaxone discontinued #Hypertension: on losartan and metoprolol as well as hydrochlorothiazide. DVT prophylaxis: on hold o/a of GI bleed GI prophylaxis; on PPI Disposition: for likely dc tomorrow. Inpatient E&M: 19690 Subs Hosp L2
--- NOTE | 2020-05-31 15:10 | CASEMGMT ---
SW received a call from patient's and daughter Reva. They said they spoke with patient and she said that SW spoke with her about going somewhere for rehab. They said she really wants to come home. Patient's daughter said she is in from [place] and can stay and help care for her. They asked about home health and SW filled them in on what insurance covers. They want patient to come home, but if it is unsafe they want to do the right thing. It was decided that we will see how patient does with therapy today and SW will call them to discuss a d/c plan. Olga Lidia PARIKH MSW
[2020-05-31] MEDS: Atorvastatin Calcium 80 MG Tablet PO (21:40)
[2020-06-01] VITALS (7 sets, daily range): BP systolic 147–151; BP diastolic 51–62; PULSE 64–91; RESP 18; TEMP 36.7–37.8; O2SAT 94–98
[2020-06-01 05:55] LABS: Absolute Lymphocyte Count 0.82 X10^3/uL (0.83-4.51); Absolute Neutrophil Count 4.1 X10^3/uL (2.0-7.7); Basophil# 0.06 X10^3/uL; Eosinophil# 0.18 X10^3/uL; Hematocrit 26.4 % (37-47); Lymphocyte # 0.82 X10^3/ul (4.0); Lymphocyte % 13.8 % (19-41); Mean Corp Hgb Conc 34.1 g/dL (32-36); Mean Corpuscular Hgb 32.7 pg (27.0-32.0); Mean Platelet Vol. 9.3 fl (6.2-12.0); Monocyte# 0.76 X10^3/uL; Monocyte% 12.8 % (0-10); NRBC Flagged by Analyzer 0 % (0-5); Neutrophil # 4.11 X10^3/uL (2.7-7.7); Neutrophil % 69.1 % (47-70); Platelet Count 227 K/mm3 (150-450); RBC Distribution Width CV 15.1 % (11.6-14.6); RBC Distribution Width SD 53.4 fl (35.1-43.9); Red Blood Count 2.75 M/mm3 (4.2-5.4)
[2020-06-01 06:19] LABS: Anion Gap 5 (5-15); BUN 12 mg/dL (7-18); BUN/Creat Ratio 26.3 RATIO (10-20); Chloride 103 mmol/L (98-107); Creatinine, Serum 0.46 mg/dL (0.55-1.02); EST Glomerular Filtration Rate 139 mL/min (>60); Est Glom Filt Rate - Afr Amer 169 mL/min (>60); Estimated Creatinine Clearance 32.73 ml/min; Glucose 102 mg/dL (74-106); Potassium 3.5 mmol/L (3.5-5.1); Sodium Level 138 mmol/L (136-145)
[2020-06-01] MEDS: Aspirin 81 MG TAB.CHEW PO (09:50)
[2020-06-01] MEDS: Furosemide 40 MG Tablet PO (09:50)
[2020-06-01] MEDS: Lisinopril 5 MG Tablet PO (09:50)
[2020-06-01] MEDS: Clopidogrel Bisulfate 75 MG Tablet PO (09:50)
[2020-06-01] MEDS: Pantoprazole Sodium 40 MG Tablet PO (09:50)
[2020-06-01] MEDS: Calcium Carb/Vitamin D 1 TABLET Tablet PO (09:50)
[2020-06-01] MEDS: Multivitamins,Therapeutic Tablet 1 TABLET PO (09:50)
[2020-06-01] MEDS: Metoprolol Tartrate 50 MG Tablet PO (09:50)
--- NOTE | 2020-06-01 09:53 | PN.SURG_ITS ---
Patient Problems: Active and Suspected Problems (Last Updated 05/27/20 @ 16:36 by Anne Enrique) STEMI (ST elevation myocardial infarction) (Acute 05/26/20) Acute respiratory failure with hypoxia (Acute 05/26/20) Subjective: Patient reports black stools that she is a started having bowel movements, Patient tolerating diet denies any abdominal pain. - Physical Exam Vitals/I&O's: Vital Signs Temp Pulse Resp BP Pulse Ox 100.0 F H 87 18 147/51 H 98 06/01/20 09:25 06/01/20 09:25 06/01/20 09:25 06/01/20 09:25 06/01/20 09:25 Oxygen Flow Rate (L/min) 2 Oxygen Delivery Method Room Air Weight: 150 lb 2.157 oz Body Mass Index (BMI) 28.3 Intake and Output for Last 24 Hours 05/30/20 05/31/20 06/01/20 23:59 23:59 23:59 Intake Total 1694.50 / 1694.50 680 / 680 Output Total 1900 / 1900 850 / 850 Balance -205.50 / -205.50 -170 / -170 General: Alert, Oriented x3, Cooperative, No apparent distress HEENT: Atraumatic Lungs: Normal air movement Cardiovascular: Regular Rhythm Abdomen: Soft, Non Tender, Non-Distended Extremities: No clubbing, No cyanosis, No edema Neurological: Cranial nerves II-XII grossly intact Psych/Mental Status: Normal Affect Microbiology Past 72 Hours 05/27/20 08:20 Blood Culture (Wb) #2 - Anticubital Right Blood Culture - Final No growth in 5 days. 05/27/20 07:50 Blood Culture (Wb) - Central Line Blood Culture - Final No growth in 5 days. 05/29/20 04:32 Sputum, Induced/Lukens Gram Stain - Final 05/29/20 04:32 Sputum, Induced/Lukens Respiratory Culture - Final 05/27/20 08:00 Urine Catheter - Owens Urine Culture - Final Culture exhibits no growth. Laboratory Results 06/01/20 05:24: WBC 6.0, RBC 2.75 L, Hgb 9.0 L, Hct 26.4 L, MCV 96.0, MCH 32.7 H , MCHC 34.1, RDW Std Deviation 53.4 H, RDW Coeff of Rochelle 15.1 H, Plt Count 227, MPV 9.3, Immature Gran % (Auto) 0.300, Neut % (Auto) 69.1, Lymph % (Auto) 13.8 L , [place] % (Auto) 12.8 H, Eos % (Auto) 3.0, Baso % (Auto) 1.0, Absolute Neuts (auto) 4.1, Absolute Lymphs (auto) 0.82 L, Nucleated RBC % 0 06/01/20 05:24: Sodium 138, Potassium 3.5, Chloride 103, Carbon Dioxide 30.0, Anion Gap 5, BUN 12, Creatinine 0.46 L, Estim Creat Clear Calc 32.73, Est GFR (MDRD) Af Amer 169, Est GFR (MDRD) Non-Af 139, BUN/Creatinine Ratio 26.3 H, Glucose 102, Calcium 9.0 Current Medications Acetaminophen (Acetaminophen 325 Mg Tablet) 650 mg PO Q6H PRN PRN PRN Reason: FEVER Last Admin: 05/29/20 22:12 Dose: 650 mg Documented by: Aspirin (Aspirin 81 Mg Tab.Chew) 81 mg PO DAILY@0800 [facility] Last Admin: 05/31/20 08:30 Dose: 81 mg Documented by: Atorvastatin Calcium (Atorvastatin Calcium 80 Mg Tablet) 80 mg PO QHS [facility] Last Admin: 05/31/20 21:40 Dose: 80 mg Documented by: Calcium/Vitamin D (Calcium Carb/Vitamin D 1 Tablet Tablet) 1 tablet PO DAILY [facility] Last Admin: 05/31/20 09:50 Dose: 1 tablet Documented by: Clopidogrel Bisulfate (Clopidogrel Bisulfate 75 Mg Tablet) 75 mg PO DAILY [facility] Last Admin: 05/31/20 08:30 Dose: 75 mg Documented by: Furosemide (Furosemide 40 Mg Tablet) 40 mg PO BID@1000,1800 [facility] Last Admin: 05/31/20 17:50 Dose: 40 mg Documented by: Sodium Chloride () 250 mls @ 15 mls/hr IV .[id number] PRN PRN Reason: Saline Flush Lisinopril (Lisinopril 5 Mg Tablet) 5 mg PO DAILY [facility] Last Admin: 05/31/20 09:50 Dose: 5 mg Documented by: Metoprolol Tartrate (Metoprolol Tartrate 50 Mg Tablet) 50 mg PO BID [facility] Last Admin: 12/02/20 21:40 Dose: 50 mg Documented by: Multivitamins (Multivitamins,Therapeutic Tablet) 1 tablet PO DAILYCM [facility] Last Admin: 05/31/20 08:30 Dose: 1 tablet Documented by: Pantoprazole Sodium (Pantoprazole Sodium 40 Mg Tablet) 40 mg PO BID [facility] Last Admin: 05/31/20 21:41 Dose: 40 mg Documented by: Sodium Chloride (0.9% Saline Lock 10 Ml Syringe) 10 - 40 ml IV UD PRN PRN Reason: SALINE FLUSH Last Admin: 05/30/20 16:00 Dose: 20 ml Documented by: Medical Necessity - Tobacco Use Smoking Status: Never smoker Assessment/Plan All Active Problems (Last Updated 05/27/20 @ 16:36 by Anne Enrique) Cardiogenic shock (Acute 05/26/20) STEMI (ST elevation myocardial infarction) (Acute 05/26/20) Acute respiratory failure with hypoxia (Acute 05/26/20) 84-year-old female status post heart cath And cardiac stent,on aspirin Plavix, Status post EGD which showed large clot in the fundus no active bleeding unsure from traumatic intubation versus another source in the upper stomach Did expect patient to have black stools as this is now moving through her system. Patient's hemoglobin is stable. We will plan for check of CBC in 1 week. Continue Protonix 40 mg p.o. daily. Will call patient with hemoglobin results in 1 week. Patient currently had no further questions this time.Did d iscuss with patient that if she is started on iron she will continue to have black stools only way to really know if she is truly bleeding or not would be to follow her hemoglobin. Nedra Medeiros M.D. Pager: [phone] [facility] [address] [place] [address], Outpatient [address], [address] [place] [address] Office: [phone] Inpatient E&M: 91162 [facility] Hosp L2
--- NOTE | 2020-06-01 10:04 | CASEMGMT ---
SW reviewed OT's note from today and patient is doing much better than previous days. SW called patient's daughter and and let them know patient is doing much better today. They said they spoke with patient and she said she felt better about home and Dr Farrell felt she would be safer at home due to COVID. BREANNA explained that SW will pass the phone along to the RN CM who will work with them on getting a walker and setting up home health. They thanked BREANNA for the help. Phone was then passed to RN MAYE Dawson. BREANNA called Yani on TCU referral phone and let her know patient is now going home with home health. Olga Lidia PARIKH REPORT DEVELOPER
--- NOTE | 2020-06-01 10:18 | PN.CARD_ITS ---
Objective: Vital Signs Temp Pulse Resp BP Pulse Ox 100.0 F H 87 18 147/51 H 98 06/01/20 09:25 06/01/20 09:50 06/01/20 09:25 06/01/20 09:50 06/01/20 09:25 Oxygen Flow Rate (L/min) 2 Oxygen Delivery Method Room Air Weight: 150 lb 2.157 oz Body Mass Index (BMI) 28.3 Intake and Output for Last 24 Hours 05/30/20 05/31/20 06/01/20 23:59 23:59 23:59 Intake Total 1694.50 / 1694.50 680 / 680 Output Total 1900 / 1900 850 / 850 Balance -205.50 / -205.50 -170 / -170 General: Awake, Alert, Oriented x 3 HEENT: PERRL, EOMI, Sclera Non Icteric Neck: Supple, Good ROM, No Lymph Node Enlargement Lungs: Clear to auscultation Cardiovascular: Regular Rhythm, Normal S1, Normal S2, No Murmurs, No Rubs, No Gallops Vascular: No Carotid Bruits, Normal Femoral Pulses, Normal Radial Pulses, Normal Dorsalis Pedal Pulse, Normal Posterior Tibial Pulses Abdomen: Bowel Sounds Present, Soft, Non Tender, No HSM, No Organomegaly Extremities: No Cyanosis, No Clubbing, No edema Neurological: No Focal Motor or Sensory Deficit 06/01/20 05:24: WBC 6.0, RBC 2.75 L, Hgb 9.0 L, Hct 26.4 L, MCV 96.0, MCH 32.7 H , MCHC 34.1, Plt Count 227, MPV 9.3, Immature Gran % (Auto) 0.300, Neut % (Auto) 69.1, Lymph % (Auto) 13.8 L, [place] % (Auto) 12.8 H, Eos % (Auto) 3.0, Baso % (Auto) 1.0, Absolute Neuts (auto) 4.1, Nucleated RBC % 0 06/01/20 05:24: Sodium 138, Potassium 3.5, Chloride 103, Carbon Dioxide 30.0, Anion Gap 5, BUN 12, Creatinine 0.46 L, Est GFR (MDRD) Af Amer 169, Est GFR (MDRD) Non-Af 139, BUN/Creatinine Ratio 26.3 H, Glucose 102, Calcium 9.0 Rhythm: EKG: ECHO: Stress Test: Cardiac Cath: PCI: CT Surgery: Holter monitor: EPS: PPM: CXR: Chest CT Scan: Medical Necessity - Tobacco Use Smoking Status: Never smoker Assessment/Plan 1. Status post lateral myocardial infarction * Patient underwent angioplasty and stenting of the left circumflex artery. She had to have an intra-aortic balloon pump placed due to cardiogenic shock which resolved immediately after placement of the stent. Balloon pump was removed with no issues. Groin is noted to be normal. Patient denies any chest pain with minimal shortness of breath at this time. * Plan will be to continue high intensity statin * Will continue aspirin and Brilinta * Will continue beta-richard orally this morning. * Will set up for cardiac rehabilitation * Will recommend p.o. Lasix 40 mg this morning during the blood transfusion * Echocardiogram demonstrates preserved ejection fraction. * Interestingly enough she discontinued her clopidogrel a few days before the incident because she felt that she had been on it for more than a year. She had also been told by her pharmacist that it was interacting with her GERD medication. * 2. Status post intubation * This is being managed by the skin peeling machine operator and hospitalist appreciate their input and help * EGD did not demonstrate any significant upper GI bleeding * 3. Severe anemia * In the face of the recent acute myocardial infarction she may benefit from a unit of packed red blood cells with probably 20 mg of IV Lasix in between. * * We will recommend transferring to the progressive care unit after that. The patient would follow-up with me in the office. Had previously been seen by Dr. Damian and was scheduled to see Dr. Brooks in office next year but has opted to stay with me since I followed with her in the hospital.She should be able to be discharged to be followed as outpatient.
--- NOTE | 2020-06-01 10:31 | CASEMGMT ---
Addendum entered by Eunice Goldsmith 06/01/20 13:30: Call received from [facility]. She states they are unable to provide aide services d/t staffing. Call placed to pt's daughter, Reva, and she was made aware. Discussed option of referral to another [facility] agency or [facility] pt for SN, PT/OT, but just not able to provide aide services. Reva talked w/pt's while KIRK VILLAVICENCIO on the phone and they both decided[facility]. She was made aware [facility] would start care w/in 24-48 hrs and someone from [facility] would call them to make arrangements for appt. Reva asks for [facility] to contact her to make these arrangements/appts. Reva states she plans to stay w/pt and her as long as needed to help care for pt and that she has a sister that is willing to come and help if needed as well. Call placed back to [facility]. VM left stating they would like [facility] and for them to contact Reva for appts/scheduling. Per Reva, she would prefer for RN to review discharge instructions with her. KIRK Hansen, made aware. Pt made aware of above and agreeable. Original Note: KIRK VILLAVICENCIO NOTE: Spoke pt's daughter, Reva, and pt's via phone. They wish for [facility] and states do not have a preference of agency and are agreeable to [facility]. They state would like to have an aide come as well. Call placed to [facility] and referral made for SN, PT/OT, and aide. She was made aware pt is discharging today. Discussed DME needs. Pt will need a walker. Per Reva, pt prefers a 4-wheeled walker. Initially Reva and pt's were going to have walker delivered to [facility] through DME company. KIRK VILLAVICENCIO placed call to [facility] ([facility] preferred provider). Per [facility], they no longer deliver walkers. They ship the walker to pt's home and can take 2-3 business days to arrive. KIRK VILLAVICENCIO spoke w/Reva to inform her of this. She was also made aware [id number] cost of FWW @ [employer] is approx $50 and that [employer] does not have 4-wheel walker but SEBASTIÁN VILLAVICENCIO could locate another DME company that does. Reva states they will go ahead and purchase a FWW through [employer]. Pt agreeable. Pt is also agreeable to [facility] as well. Per Reva and pt's , they could also use a shower chair/transfer bench. They were made aware this is not covered under pt's insurance and that they could purchase on their own through a local DME company or drug store that carries them or order on -line if they wish. They voice appreciation of this information. Reva then called back to [employer] and states they have located someone they can get a walker from and they have both FWW and a walker w/4 wheels. She denies need for further DME at this time. She states they are looking into purchasing a pulse ox as well. Reva/pt's , and pt all state they have no other needs/concerns/questions at this time. Awaiting [facility] acceptance. Rk MOLINA RN CM
--- NOTE | 2020-06-01 11:08 | PCM.DC ---
- Discharge Diagnoses Current Active Problems: Current Active and Chronic Problems (Last Updated 05/27/20 @ 16:36 by Anne Enrique) STEMI (ST elevation myocardial infarction) (Acute 05/26/20) Acute respiratory failure with hypoxia (Acute 05/26/20) History of coronary artery stent placement (Chronic 05/26/20) EDU-JWU-Mdek LAD w/ 3.5 x 20 mm Promus Element Stent 06/06/2011; PCI-SHANE-Mid LCx w/ 3.0 x 16 mm Synergey stent and POBA-kissing balloon angioplasty of the proximal left circumflex and proximal left anterior descending as well as proximal optimization technique of the mid and distal left main stent using angioplasty 05/26/2020 Atherosclerosis of [place] coronary artery of [place] heart without angina pectoris (Chronic) Hyperlipemia, mixed (Chronic) Essential (primary) hypertension (Chronic) You will use the following diet at home:: Cardiac Your food should be the consistency of: Regular Your liquids should be the consistency of: Regular/Thin Discharge Activity: Return to Normal Activity Weight Bearing Status: Weight bearing as tolerated Call your doctor if you observe: Fever of 101 or Higher, Shortness of breath, Dizziness, Fainting spells, Swelling in the ankles, Chest pain, - - dark stools Instructions: Heart Attack, When You Have Gastrointestinal (GI) Bleeding Allergies/Adverse Reactions: Allergies erythromycin base Allergy (Verified 05/26/20 20:20) sickness feeling Medications to take at Discharge Aspirin [Adult Low Dose Aspirin EC] 81 mg PO DAILY 12/25/16 Calcium Carbonate/Vitamin D3 [Calcium 600-Vit D3 200 Tablet] 1 ea PO DAILY 12/25/16 Folic Acid 0.8 mg PO DAILY@0800 12/25/16 Multivitamins,Therapeutic [Multivitamin] 1 tab PO DAILY 12/25/16 Nitroglycerin (INPATIENT USE) [Nitrostat] 0.4 mg SUBLINGUAL Q5M PRN 12/25/16 omega-3 fatty acids-fish oil 300 mg-1,000 mg capsule 1 cap PO BID cap 10/22/18 atorvastatin 80 mg tablet 80 mg PO QHS #90 tab 07/05/19 metoprolol tartrate 50 mg tablet 50 mg PO BID #180 tab 01/10/20 Clopidogrel Bisulfate [Plavix] 75 mg PO DAILY #30 tab 06/01/20 Ferrous Sulfate 325 mg PO BIDCM #60 tab 06/01/20 Lisinopril [Zestril] 5 mg PO DAILY #30 tab 06/01/20 Pantoprazole Sodium 40 mg PO DAILY #30 tablet. 06/01/20 The following prescriptions were given: Ferrous Sulfate 325 mg PO BIDCM #60 tab Transmission Status: Pending to [facility]/pharmacy #[id number] Pantoprazole Sodium 40 mg PO DAILY #30 tablet.dr Transmission Status: Received by [facility]/pharmacy #[id number] Clopidogrel Bisulfate [Plavix] 75 mg PO DAILY #30 tab Transmission Status: Pending to [facility]/pharmacy #[id number] Lisinopril [Zestril] 5 mg PO DAILY #30 tab Transmission Status: Pending to [facility]/pharmacy #[id number] Orders to be completed after discharge: CBC-Complete Blood Cnt No Diff Time Frame: 06/07/20, Facility: [facility], Location: Laboratory Primary Care Physician: Ora Martinez DO [Primary Care Provider] - Please follow up with your Primary Care Physician in: 1-2 weeks Test Results: Test results from this visit will be discussed in further detail at your follow-up appointment, if applicable. Please Follow Up With: Rafael Farrell MD When: 2-3 weeks Please Follow Up With: Nedra Medeiros MD When: 1-2 weeks Proposed Discharge Date: 06/01/20
--- NOTE | 2020-06-01 11:10 | DS.PCM_ITS ---
Discharge Date and Diagnosis - Problem List Patient Problems: Active and Suspected Problems (Last Updated 05/27/20 @ 16:36 by Anne Enrique) STEMI (ST elevation myocardial infarction) (Acute 05/26/20) Acute respiratory failure with hypoxia (Acute 05/26/20) Date of Admission: 05/26/20 Date of Discharge: 06/01/20 - Primary Discharge Diagnosis Acute Problems: Active Problems (Last Updated 05/27/20 @ 16:36 by Anne Enrique) STEMI (ST elevation myocardial infarction) (Acute 05/26/20) Acute respiratory failure with hypoxia (Acute 05/26/20) acute upper GI bleed - Secondary Discharge Diagnosis Chronic Problems: Chronic Problems (Last Updated 05/27/20 @ 16:36 by Anne Enrique) History of coronary artery stent placement (Chronic 05/26/20) [id number] LAD w/ 3.5 x 20 mm Promus Element Stent 06/06/2011; PCI-SHANE-Mid LCx w/ 3.0 x 16 mm Synergey stent and POBA-kissing balloon angioplasty of the proximal left circumflex and proximal left anterior descending as well as proximal optimization technique of the mid and distal left main stent using angioplasty 05/26/2020 Atherosclerosis of [place] coronary artery of [place] heart without angina pectoris (Chronic) Hyperlipemia, mixed (Chronic) Essential (primary) hypertension (Chronic) Hospital Course and Treatment Imaging Results: Diagnostic Data Chest X-Ray 05/30/20 08:45 IMPRESSION: Interval removal of the endotracheal tube and orogastric tube. Persistent small bilateral pleural effusions with bibasilar atelectasis and/or infiltrates worse on the left side. Mild degree of residual CHF. Electronically Signed: Zan Campos, at 12:00 EST , Service support , cardiology- Dr Valentin critical care- Dr Simmons general surgery- Dr Medeiros Operations: None Procedures: 2-D Echocardiogram, Cardiac catheterization, EGD Summary of Care Provided: The patient is a 84 year old F with an extensive past medical history as outlined who was admitted through the ED on 05/26/2020 with a complaint of progressive and persistent chest pain. Pain was achy and radiated down her left arm and was aggravated by exertion and relieved by rest. She also had some shortness of breath. In the ED, she had EKG showing diffuse ST depression in the inferior and precordial leads and ST elevation in the aVR. Labs were essentially unremarkable. Troponins were negative. Repeat EKG was concerning for ST elevation CO. Patient was also very short of breath and unable to lay flat so she was emergently intubated and urgently transported to the [facility] [employer]. She also developed hypotension and was placed on Levophed because hypotension was refractory to IV fluid administration. She had PCI with stenting of the mid left circumflex artery and balloon angioplasty of the proximal left circumflex and proximal left anterior descending as well as proximal optimization technique of the mid and distal left main arteries using angioplasty. She had an intra- aortic balloon pump placed and she was also transported to the ICU after cardiac cath on Levophed on account of shock which was initially thought to be cardiogenic shock. Subsequently developed a GI bleed with copious bloody fluid being aspirated from her NG tube. No surgery was therefore consulted and aspirin and Plavix were held. She had bedside EGD which showed an adherent blood clot in the fundus but no overt bleeding. She required Levophed and dopamine. She also developed a fever and leukocytosis and was started on broad- spectrum antibiotics whilst blood and urine cultures were sent. Cultures were subsequently negative. 2D echo done showed EF of 55% with no regional wall motion abnormalities noted and normal left ventricular size and systolic function. patient was subsequently successfully extubated and was gradually weaned down to room air. Antimicrobials were stopped as blood cultures were negative and fever resolved. Her aspirin and Plavix were resumed. She did require transfusion of 1 unit of packed red blood cell. Her postop course was initially unremarkable and she was transferred to the progressive care unit. On 06/01/2020, patient complained of having some dark stools. However her hemoglobin remained stable at 9 and per discussion with general surgery, this was likely due to the old blood in her stomach that was working her way down through the GI tract. Plan was therefore for patient to follow-up with general surgery on outpatient basis for repeat EGD as needed. Patient remained stable and was discharged home on 06/01/2020. She was discharged with on aspirin, Plavix, high intensity statin, lisinopril and metoprolol as well as pantoprazole. She was also discharged on p.o. iron supplementation. She is to follow-up with her primary care doctor, cardiology and general surgery. Patient seen and examined prior to discharge. She felt well and only complaint was of the dark stools which was been mentioned above. Review of symptoms otherwise negative. Labs and vitals reviewed. Home medication reviewed and reconciled. O/E: Vital Signs Temp Pulse Resp BP Pulse Ox 100.0 F H 87 18 147/51 H 98 06/01/20 11:17 06/01/20 11:17 06/01/20 11:17 06/01/20 11:17 06/01/20 11:17 [] General: Alert, Oriented x3, Cooperative HEENT: Atraumatic, PERRLA, EOMI, Normocephalic Oral: Dry Mucosa Neck: Supple, No JVD, Negative Carotid Bruits Lungs: - - diminished breath sounds bibasally. On room air Cardiovascular: Regular rate, Normal S1, Normal S2, No murmurs, Abdomen: Bowel Sounds Present, Soft, Non Tender, Non-Distended, No Hepato- splenomegaly Extremities: No clubbing, No cyanosis, Capillary Refill Less than 3 Seconds, no edema Skin: No rashes, No breakdown Musculoskeletal: No Tenderness to Palpation of Joints or Extremities Lymphatic: No Cervical, Supraclavicular, or Inguinal Adenopathy Neurological: Cranial nerves II-XII grossly intact, Neuro grossly intact, Motor Exam 5/5 strength throughout Psych/Mental Status: Normal Affect, Appropriate, Alert and oriented to time, place, person, mood and affect Plan is for discharge home today as above. Patient Problems: Active and Suspected Problems (Last Updated 05/27/20 @ 16:36 by Anne Enrique) STEMI (ST elevation myocardial infarction) (Acute 05/26/20) Acute respiratory failure with hypoxia (Acute 05/26/20) - Physical Exam Vitals/I&O's: Vital Signs Temp Pulse Resp BP Pulse Ox 100.0 F H 71 18 147/51 H 98 06/01/20 09:25 06/01/20 11:00 06/01/20 09:25 06/01/20 09:50 06/01/20 09:25 Oxygen Flow Rate (L/min) 2 Oxygen Delivery Method Room Air Weight: 150 lb 2.157 oz Body Mass Index (BMI) 28.3 Intake and Output for Last 24 Hours 05/30/20 05/31/20 06/01/20 23:59 23:59 23:59 Intake Total 1694.50 / 1694.50 680 / 680 Output Total 1900 / 1900 850 / 850 Balance -205.50 / -205.50 -170 / -170 Microbiology Past 72 Hours 05/27/20 08:20 Blood Culture (Wb) #2 - Anticubital Right Blood Culture - Final No growth in 5 days. 05/27/20 07:50 Blood Culture (Wb) - Central Line Blood Culture - Final No growth in 5 days. 05/29/20 04:32 Sputum, Induced/Lukens Gram Stain - Final 05/29/20 04:32 Sputum, Induced/Lukens Respiratory Culture - Final 05/27/20 08:00 Urine Catheter - Owens Urine Culture - Final Culture exhibits no growth. Laboratory Results 06/01/20 05:24: WBC 6.0, RBC 2.75 L, Hgb 9.0 L, Hct 26.4 L, MCV 96.0, MCH 32.7 H , MCHC 34.1, RDW Std Deviation 53.4 H, RDW Coeff of Rochelle 15.1 H, Plt Count 227, MPV 9.3, Immature Gran % (Auto) 0.300, Neut % (Auto) 69.1, Lymph % (Auto) 13.8 L , Crowley % (Auto) 12.8 H, Eos % (Auto) 3.0, Baso % (Auto) 1.0, Absolute Neuts (auto) 4.1, Absolute Lymphs (auto) 0.82 L, Nucleated RBC % 0 06/01/20 05:24: Sodium 138, Potassium 3.5, Chloride 103, Carbon Dioxide 30.0, Anion Gap 5, BUN 12, Creatinine 0.46 L, Estim Creat Clear Calc 32.73, Est GFR (MDRD) Af Amer 169, Est GFR (MDRD) Non-Af 139, BUN/Creatinine Ratio 26.3 H, Glucose 102, Calcium 9.0 Current Medications Acetaminophen (Acetaminophen 325 Mg Tablet) 650 mg PO Q6H PRN PRN PRN Reason: FEVER Last Admin: 05/29/20 22:12 Dose: 650 mg Documented by: Aspirin (Aspirin 81 Mg Tab.Chew) 81 mg PO DAILY@0800 [facility] Last Admin: 12/03/20 09:50 Dose: 81 mg Documented by: Atorvastatin Calcium (Atorvastatin Calcium 80 Mg Tablet) 80 mg PO QHS [facility] Last Admin: 05/31/20 21:40 Dose: 80 mg Documented by: Calcium/Vitamin D (Calcium Carb/Vitamin D 1 Tablet Tablet) 1 tablet PO DAILY [facility] Last Admin: 06/01/20 09:50 Dose: 1 tablet Documented by: Clopidogrel Bisulfate (Clopidogrel Bisulfate 75 Mg Tablet) 75 mg PO DAILY [facility] Last Admin: 06/01/20 09:50 Dose: 75 mg Documented by: Furosemide (Furosemide 40 Mg Tablet) 40 mg PO BID@1000,1800 [facility] Last Admin: 06/01/20 09:50 Dose: 40 mg Documented by: Sodium Chloride () 250 mls @ 15 mls/hr IV .[id number] PRN PRN Reason: Saline Flush Lisinopril (Lisinopril 5 Mg Tablet) 5 mg PO DAILY [facility] Last Admin: 06/01/20 09:50 Dose: 5 mg Documented by: Metoprolol Tartrate (Metoprolol Tartrate 50 Mg Tablet) 50 mg PO BID [facility] Last Admin: 06/01/20 09:50 Dose: 50 mg Documented by: Multivitamins ([facility],Therapeutic [facility]t) [facility] Last Admin: 06/01/20 09:50 Dose: 1 tablet Documented by: Pantoprazole Sodium (Pantoprazole Sodium 40 Mg Tablet) 40 mg PO BID [facility] Last Admin: 06/01/20 09:50 Dose: 40 mg Documented by: Sodium Chloride (0.9% Saline Lock 10 Ml Syringe) 10 - 40 ml IV UD PRN PRN Reason: SALINE FLUSH Last Admin: 05/30/20 16:00 Dose: 20 ml Documented by: Discharge Diet: Low fat/ Low Cholesterol Discharge Activity: Return to Normal Activity Weight Bearing Status: Weight bearing as tolerated Call your doctor if you observe: Fever of 101 or Higher, Shortness of breath, Dizziness, Fainting spells, Swelling in the ankles, Chest pain, - - dark stools Home Medications: Medications to take at Discharge Aspirin [Adult Low Dose Aspirin EC] 81 mg PO DAILY 12/25/16 Calcium Carbonate/Vitamin D3 [Calcium 600-Vit D3 200 Tablet] 1 ea PO DAILY 11/29 02/13 Folic Acid 0.8 mg PO DAILY@0800 12/25/16 Multivitamins,Therapeutic [Multivitamin] 1 tab PO DAILY 12/25/16 Nitroglycerin (INPATIENT USE) [Nitrostat] 0.4 mg SUBLINGUAL Q5M PRN 12/25/16 omega-3 fatty acids-fish oil 300 mg-1,000 mg capsule 1 cap PO BID cap 10/22/18 atorvastatin 80 mg tablet 80 mg PO QHS #90 tab 07/05/19 metoprolol tartrate 50 mg tablet 50 mg PO BID #180 tab 01/10/20 Clopidogrel Bisulfate [Plavix] 75 mg PO DAILY #30 tab 06/01/20 Ferrous Sulfate 325 mg PO BIDCM #60 tab 06/01/20 Furosemide [Lasix] 40 mg PO DAILY #30 tab 06/01/20 Lisinopril [Zestril] 5 mg PO DAILY #30 tab 06/01/20 Pantoprazole Sodium 40 mg PO DAILY #30 tablet. 06/01/20 Following Prescriptions Were Given to Patient: Ferrous Sulfate 325 mg PO BIDCM #60 tab Transmission Status: Received by [facility]/pharmacy #[id number] Furosemide [Lasix] 40 mg PO DAILY #30 tab Transmission Status: Received by [facility]/pharmacy #[id number] Pantoprazole Sodium 40 mg PO DAILY #30 tablet.dr Transmission Status: Received by [facility]/pharmacy #[id number] Clopidogrel Bisulfate [Plavix] 75 mg PO DAILY #30 tab Transmission Status: Received by [facility]/pharmacy #[id number] Lisinopril [Zestril] 5 mg PO DAILY #30 tab Transmission Status: Received by [facility]/pharmacy #[id number] Other Amb Orders: CBC-Complete Blood Cnt No Diff Time Frame: 06/07/20, Facility: [facility], Location: Laboratory Primary Care Physician: Ora Martinez DO [Primary Care Provider] - Please follow up with your Primary Care Physician in: 1-2 weeks Please Follow Up With: Rafael Farrell MD When: 2-3 weeks Please Follow Up With: Nedra Medeiros MD When: 1-2 weeks Patient Instructions: When You Have Gastrointestinal (GI) Bleeding, Heart Attack Disposition: Home Minutes spent on discharge:: 45 Patient Condition:: Stable Medical Necessity - Tobacco Use Smoking Status: Never smoker Meaningful Use Info Meaningful Use Diagnoses (Choose all that apply): AMI - AMI/Post PCI/Angioplasty Aspirin given w/in 24hrs of arrival?: Yes ASA at discharge?: Yes Antiplatelet Therapy at Discharge:: Yes Statins at discharge?: Yes Remy/ARB at discharge?: Yes Beta Dennise at discharge?: Yes Done w/ Acute CO measure.: Yes Documented LVEF (%): 55 Inpatient E&M: 29427 Disch Hosp
--- NOTE | 2020-06-01 11:56 | PHA.DC.MC ---
Pharmacy Service has performed discharge medication reconciliation and counseling for this patient. 1. CLOPIDOGREL 75MG PO DAILY 2. FERROUS SULFATE 325MG PO BIDCM 3. LISINOPRIL 5MG PO DAILY 4. PANTOPRAZOLE 40MG PO DAILY The patient's discharge medication list was reviewed for discrepancies and discrepancies were resolved. Home Medications Aspirin [Adult Low Dose Aspirin EC] 81 mg PO DAILY 12/25/16 Calcium Carbonate/Vitamin D3 [Calcium 600-Vit D3 200 Tablet] 1 ea PO DAILY 12/25/16 Folic Acid 0.8 mg PO DAILY@0800 12/25/16 Multivitamins,Therapeutic [Multivitamin] 1 tab PO DAILY 12/25/16 Nitroglycerin (INPATIENT USE) [Nitrostat] 0.4 mg SUBLINGUAL Q5M PRN 12/25/16 omega-3 fatty acids-fish oil 300 mg-1,000 mg capsule 1 cap PO BID cap 10/22/18 atorvastatin 80 mg tablet 80 mg PO QHS #90 tab 07/05/19 metoprolol tartrate 50 mg tablet 50 mg PO BID #180 tab 01/10/20 Clopidogrel Bisulfate [Plavix] 75 mg PO DAILY #30 tab 06/01/20 Ferrous Sulfate 325 mg PO BIDCM #60 tab 06/01/20 Lisinopril [Zestril] 5 mg PO DAILY #30 tab 06/01/20 Pantoprazole Sodium 40 mg PO DAILY #30 tablet. 06/01/20 The patient was counseled on the following discharge medications and changes in medications for homegoing were reviewed. The Reason for Use, instructions for use, and potential side effects were reviewed for all new medications. The patient's questions regarding all of their medications were answered. The patient was able to verbally demonstrate an understanding of their discharge medications.
--- NOTE | 2020-06-02 15:30 | CASEMGMT ---
KIRK VILLAVICENCIO Discharge Follow-Up Phone Call. Patrizia: Aury Strata: 3 Discharge Date: 06/01/20 Adm Dx: STEMI Call to pt to inquire about how she has been doing since being discharged from the hospital. Pt's daughter, Reva, answered the phone and states pt is sleeping and she is able to answer questions. She states pt has been doing great. She states, I've been really impressed with how well she is doing. She states pt was able to sponge bathe herself a little and Reva assisted her with washing her hair. [facility] PT was out to see pt today and nurse is to call to schedule appt for tomorrow. 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 She denies having any questions about the discharge instructions. She is aware of all of the appts scheduled. Reva did inquire about the PICC insertion site and if pt able to shower. KIRK VILLAVICENCIO informed Reva that dsg over site should remain in place for 24 hrs, so dsg can come off today, and pt may shower. She was advised to monitor site for any s/sx's of infection such as redness, pain, or drainage, and to report this to [facility] nurse or PCP if notices any of these things. She voices understanding. Rk MOLINA RN, CM
== END 2020-06-01 16:07 | disposition home health service (06) | DRG 853 ==
LOC: ED 20:51 → ICU 21:36 → PCU 05-30 17:03
PROVIDERS: Internal Medicine Critical Care Medicine; Surgery; Admitting Provider Hospitalist; Emergency Provider Emergency Medicine; PCP Family Medicine; Referring Provider Internal Medicine Cardiovascular Disease; Visit Provider Student in an Organized Health Care Education/Training Program
PROC: 0DJ08ZZ Inspection of Upper Intestinal Tract, Via Natural or Artificial Opening Endoscopic (ICD-10-PCS; CPT 43235; principal; 2020-05-27 09:00)
DX: A41.9 Sepsis, unspecified organism (principal); I21.3 ST elevation (STEMI) myocardial infarction of unspecified site; J96.01 Acute respiratory failure with hypoxia; R57.0 Cardiogenic shock; I50.21 Acute systolic (congestive) heart failure; R65.21 Severe sepsis with septic shock; K92.1 Melena; T82.855A Stenosis of coronary artery stent, initial encounter; D62 Acute posthemorrhagic anemia; E78.2 Mixed hyperlipidemia; I25.10 Atherosclerotic heart disease of native coronary artery without angina pectoris; I44.0 Atrioventricular block, first degree; I11.0 Hypertensive heart disease with heart failure; E87.6 Hypokalemia; Y83.1 Surgical operation with implant of artificial internal device as the cause of abnormal reaction of the patient, or of later complication, without mention of misadventure at the time of the procedure; K21.9 Gastro-esophageal reflux disease without esophagitis
CPT/HCPCS: 31500; 31720; 33967; 36569; 36600; 71045; 80048; 80053; 82271; 82550; 82803; 83605; 84478; 84484; 85014; 85018; 85025; 85347; 85610; 85730; 86850; 86900; 86901; 86920; 86922; 87040; 87070; 87086; 87205; 87635; 92920; 92928; 92978; 93005; 93306; 93460; 94002; 94003; 94660; 94799; 97110; 97162; 97166; 97530; 97535; 97802; 97803; 99251; 99285; J7030; J7040; J7050; P9016; A4216; C1725; C1751; C1753; C1769; C1874; C1887; C1894; C9600; G0463; J0330; J1940; J3010; J3490; Q9967; U0002

== ENCOUNTER → 2020-06-07 12:29 | Outpatient (CLI) | payer MEDICARE, SELFPAY ==
[2020-05-27 01:23] VITALS: BMI 28.3
[2020-06-07 13:41] LABS: Hemoglobin 11.3 g/dL (12.0-15.0); Mean Corp Hgb Conc 31.4 g/dL (32-36); Mean Corpuscular Hgb 32.7 pg (27.0-32.0); Mean Platelet Vol. 9.4 fl (6.2-12.0); Platelet Count 572 K/mm3 (150-450); RBC Distribution Width CV 14.6 % (11.6-14.6); RBC Distribution Width SD 54.7 fl (35.1-43.9); Red Blood Count 3.46 M/mm3 (4.2-5.4); White Blood Count 8.8 K/mm3 (4.4-11.0)
== END ==
PROVIDERS: PCP Family Medicine; Referring Provider Surgery; Visit Provider Surgery
DX: D64.9 Anemia, unspecified (principal)
CPT/HCPCS: 36415; 85027

== ENCOUNTER → 2022-10-25 | Outpatient (CLI) | payer MEDICARE, SELFPAY ==
[2022-10-25 12:39] LABS: Anion Gap 0 (5-15); BUN 15 mg/dL (7-18); BUN/Creat Ratio 22.6 RATIO (10-20); Chloride 100 mmol/L (98-107); Creatinine, Serum 0.66 mg/dL (0.55-1.02); EST Glomerular Filtration Rate 90 mL/min (>60); Est Glom Filt Rate - Afr Amer 108 mL/min (>60); Glucose 102 mg/dL (74-106); Potassium 4.6 mmol/L (3.5-5.1); Sodium Level 131 mmol/L (136-145)
== END | disposition home or self-care (01) ==
LOC: LAB 11:33
PROVIDERS: PCP Family Medicine; Referring Provider Physician Assistant Medical; Visit Provider Physician Assistant Medical
DX: I10 Essential (primary) hypertension (principal)
CPT/HCPCS: 36415; 80048

== ENCOUNTER → 2022-11-11 | Outpatient (CLI) | payer MEDICARE, SELFPAY ==
[2022-11-11 09:08] LABS: Anion Gap 3 (5-15); BUN 15 mg/dL (7-18); BUN/Creat Ratio 20.6 RATIO (10-20); Calcium,Total 9.7 mg/dL (8.5-10.1); Chloride 103 mmol/L (98-107); Creatinine, Serum 0.73 mg/dL (0.55-1.02); EST Glomerular Filtration Rate 81 mL/min (>60); Est Glom Filt Rate - Afr Amer 98 mL/min (>60); Glucose 112 mg/dL (74-106); Potassium 4.2 mmol/L (3.5-5.1); Sodium Level 137 mmol/L (136-145)
== END | disposition home or self-care (01) ==
LOC: LAB 08:20
PROVIDERS: PCP Family Medicine; Referring Provider Nurse Practitioner Gerontology; Visit Provider Nurse Practitioner Gerontology
DX: E87.1 Hypo-osmolality and hyponatremia (principal)
CPT/HCPCS: 36415; 80048

== ENCOUNTER → 2024-03-31 | Outpatient (CLI) | payer MEDICARE, SELFPAY ==
--- NOTE | 2024-03-31 18:03 | STRESSREP ---
Stress Test Report Exercise myocardial perfusion stress test. 88-year-old lady with a history of previous angioplasty and stenting Stress protocol: Resting EKG demonstrates normal sinus rhythm with a rate of 78 bpm resting blood pressure is 150/72 mmHg. The patient exercised according to the regular Joaquim protocol for a total duration of 5 minutes attaining a maximum heart rate of 157 bpm which was 117% of maximum predicted heart rate; the maximum workload was 7 metabolic equivalents. At rest there were no ST or T wave changes noted to suggest ischemia and at peak exercise 1.[address] changes only were noted which did meet the criteria for ischemia. No clinical angina was noted the test was terminated due to the target heart rate being achieved/fatigue. The peak blood pressure was 190/88 mmHg. Rate-pressure product was 29,800. Myocardial perfusion protocol. 11.2 mCi of technetium 99m sestamibi was injected at rest. The patient exercised according to regular Joaquim protocol for total duration of 5 minutes and at peak exercise 33.6 mCi of technetium 99m sestamibi was injected stress images were obtained stress and rest images were reconstructed in comparing the short axis vertical long and horizontal long axis. Gated images were also obtained. Perfusion SPECT analysis: Review of the stress images demonstrate normal uptake of tracer noted in all areas of the myocardium. The resting images similarly demonstrate normal uptake of tracer noted in all areas of the myocardium. No areas of reversibility are noted to suggest ischemia no previous infarct was noted. Gated SPECT analysis: The gated ejection fraction is 82%. Conclusion: Normal exercise myocardial perfusion stress test at a moderate workload EKG changes suggestive of ischemia noted Preserved ejection fraction.
== END | disposition home or self-care (01) ==
PROVIDERS: PCP Family Medicine; Referring Provider Physician Assistant Medical; Visit Provider Physician Assistant Medical
DX: Z95.5 Presence of coronary angioplasty implant and graft (principal)
CPT/HCPCS: 78452; 93017; A9500; A4216